=== PATIENT | male | born 1990 | race Caucasian/White ===

== ENCOUNTER 2016-12-01 17:19 | Emergency (ER) | payer SELFPAY ==
[~2016-12-01] VITALS: Ht 165.1 cm; Wt 72.6 kg
[~2016-12-01 17:19] MED LIST: ALPR1TAB2 PO; CIPR500T78 PO; FAMO20TA3 PO; HYDR-3812 PO; HYOS0.1217 SL; IBUP-2055 PO; OMEP20CA12 PO; OMEP20TA2 PO; ONDA4TAB8 PO; ONDA4TAB8 SL; RT-ALBUINH IH; SCR1T PO; SUCR1ORA5 PO
[2016-12-01 18:06] LABS: BASOPHILS # (AUTO) 0.1 10^3/uL (0.0-0.1); BASOPHILS % (AUTO) 1 % (0-10); EOSINOPHILS # (AUTO) 0.1 10^3/uL (0.0-0.3); EOSINOPHILS % (AUTO) 1 % (0-10); LYMPHOCYTES % (AUTO) 39 % (12-44); MEAN CORPUSCULAR HEMOGLOBIN 32 PG (25-34); MEAN CORPUSCULAR HGB CONC 36 G/DL (32-36); MEAN CORPUSCULAR VOLUME 88 FL (80-99); MEAN PLATELET VOLUME 10.1 FL (7.4-10.4); MONOCYTES # (AUTO) 0.5 X 10^3 (0.0-1.0); MONOCYTES % (AUTO) 6 % (0-12); NEUTROPHILS # (AUTO) 4.2 X 10^3 (1.8-7.8); NEUTROPHILS % (AUTO) 53 % (42-75); PLATELET COUNT 242 10^3/uL (130-400); RED BLOOD COUNT 5.38 10^6/uL (4.35-5.85); RED CELL DISTRIBUTION WIDTH 12.4 % (10.0-14.5); WHITE BLOOD COUNT 7.9 10^3/uL (4.3-11.0)
--- NOTE | 2016-12-01 18:18 | ED General ---
General Chief Complaint: Chest Wall/Rib Pain Stated Complaint: CHEST PAIN,SOA Source of Information: Patient Exam Limitations: No Limitations History of Present Illness Time Seen by Provider: 18:16 Initial Comments To ER with chest pain that radiated to left arm and was associated with shortness of breath and anxiety. This began this morning about 9 a.m. and lasted for 2 or 3 hours before resolving. At this time he is pain-free and does not have any shortness of breath or any symptoms at all. He's had this quite frequently in the past but has never had it looked at. He states that his brother has similar symptoms. Normally he can get these to go away by holding his breath and then breathing very slowly. Timing/Duration: Intermittent Severity: Moderate Associated Systoms: Chest Pain, No Cough Allergies and Home Medications Allergies Coded Allergies: cefpodoxime (Verified Allergy, Unknown, 10/11/14) Told allergic when he was a child. Reaction unknown. codeine (Verified Allergy, Unknown, NAUSEA/VOMITING, 09/28/15) Home Medications Albuterol Sulfate 8.5 Gm Hfa.aer.ad, 1-2 PUFF IH Q4H PRN for SHORTNESS OF BREATH , (Reported) Alprazolam 1 Mg Tablet, 0.5-1 MG PO BID PRN for ANXIETY, (Reported) Hydrocodone/Acetaminophen 1 Each Tablet, 1 TAB PO Q4H PRN for PAIN, #60 Prescribed by: OSWALDO SANTILLAN on 06/03/16 1110 Omeprazole 20 Mg Capsule.dr, 20 MG PO DAILY, (Reported) Ondansetron 4 Mg Tab.rapdis, 4 MG PO Q4H PRN for NAUSEA/VOMITING, (Reported) Constitutional: see HPI EENTM: see HPI Respiratory: see HPI, cough Cardiovascular: no symptoms reported Genitourinary: no symptoms reported Musculoskeletal: no symptoms reported Skin: no symptoms reported Psychiatric/Neurological: No Symptoms Reported Hematologic/Lymphatic: No Symptoms Reported Past Hbelbce-Bqwfvn-Lhrfpu Hx Patient Social History Type Used: Cigarettes Recent Foreign Travel: No Contact w/Someone Who Travel: No Recent Hopitalizations: No (ER visit yesterday (05-31-16)) Immunizations Up To Date Tetanus Booster (TDap): Unknown Seasonal Allergies Seasonal Allergies: No Surgeries HX Surgeries: No Respiratory Hx Respiratory Disorders: No Cardiovascular Hx Cardiac Disorders: No Neurological Hx Neurological Disorders: No Reproductive System Hx Reproductive Disorders: No Sexually Transmitted Disease: No HIV/AIDS: No Genitourinary Hx Genitourinary Disorders: No Gastrointestinal Hx Gastrointestinal Disorders: Yes Gastrointestinal Disorders: Pancreatitis Musculoskeletal Hx Musculoskeletal Disorders: No Endocrine Hx Endocrine Disorders: No HEENT HX ENT Disorders: No Cancer Hx Cancer: No Psychosocial Hx Psychiatric Problems: Yes Behavioral Health Disorders: Anxiety Integumentary HX Skin/Integumentary Disorder: No Blood Transfusions Hx Blood Disorders: No Adverse Reaction to a Blood Tr: No Family Medical History Significant Family History: No Pertinent Family Hx Family Medial History: Patient reports no known family medical history. Physical Exam Vital Signs Vital Sign - Last 12Hours 12/01/16 17:25 Temp 99.7 Pulse 100 B/P (MAP) 159/115 O2 Delivery Room Air Capillary Refill : General Appearance: No Apparent Distress, WD/WN Eyes: Bilateral Eye EOMI, Bilateral Eye Normal Inspection, Bilateral Eye PERRL HEENT: PERRL/EOMI, TMs Normal Neck: Full Range of Motion, Normal Inspection Respiratory: Normal Breath Sounds, No Accessory Muscle Use, No Respiratory Distress Cardiovascular: Regular Rate, Rhythm, Normal Peripheral Pulses Extremity: Normal Capillary Refill, Normal Inspection Neurologic/Psychiatric: Alert, Oriented x3, No Motor/Sensory Deficits Skin: Normal Color, Warm/Dry Progress/Results/Core Measures Results/Orders Lab Results Laboratory Tests Test 12/01/16 17:50 Range/Units White Blood Count 7.9 4.3-11.0 10^3/uL Red Blood Count 5.38 4.35-5.85 10^6/uL Hemoglobin 17.2 13.3-17.7 G/DL Hematocrit 47 40-54 % Mean Corpuscular Volume 88 80-99 FL Mean Corpuscular Hemoglobin 32 25-34 PG Mean Corpuscular Hemoglobin Concent 36 32-36 G/DL Red Cell Distribution Width 12.4 10.0-14.5 % Platelet Count 242 130-400 10^3/uL Mean Platelet Volume 10.1 7.4-10.4 FL Neutrophils (%) (Auto) 53 42-75 % Lymphocytes (%) (Auto) 39 12-44 % Monocytes (%) (Auto) 6 0-12 % Eosinophils (%) (Auto) 1 0-10 % Basophils (%) (Auto) 1 0-10 % Neutrophils # (Auto) 4.2 1.8-7.8 X 10^3 Lymphocytes # (Auto) 3.0 1.0-4.0 X 10^3 Monocytes # (Auto) 0.5 0.0-1.0 X 10^3 Eosinophils # (Auto) 0.1 0.0-0.3 10^3/uL Basophils # (Auto) 0.1 0.0-0.1 10^3/uL Sodium Level 141 135-145 MMOL/L Potassium Level 4.1 3.6-5.0 MMOL/L Chloride Level 105 98-107 MMOL/L Carbon Dioxide Level 26 21-32 MMOL/L Anion Gap 10 5-14 MMOL/L Blood Urea Nitrogen 9 7-18 MG/DL Creatinine 0.92 0.60-1.30 MG/DL Estimat Glomerular Filtration Rate > 60 BUN/Creatinine Ratio 10 Glucose Level 110 H 70-105 MG/DL Calcium Level 9.8 8.5-10.1 MG/DL Total Bilirubin 0.8 0.1-1.0 MG/DL Aspartate Amino Transf (AST/SGOT) 28 5-34 U/L Alanine Aminotransferase (ALT/SGPT) 35 0-55 U/L Alkaline Phosphatase 102 40-136 U/L Total Protein 6.9 6.4-8.2 G/DL Albumin 4.5 3.2-4.5 G/DL Lipase 13 8-78 U/L My Orders Orders - AUDREY POTTER APRN Cbc With Automated Diff (12/01/16 17:36) Comprehensive Metabolic Panel (12/01/16 17:36) Lipase (12/01/16 17:36) Ua Culture If Indicated (12/01/16 17:36) Ekg Tracing (12/01/16 18:07) Chest Pa/Lat (2 View) (12/01/16 18:28) Vital Signs/I&O Vital Sign - Last 12Hours 12/01/16 17:25 Temp 99.7 Pulse 100 B/P (MAP) 159/115 O2 Delivery Room Air Departure Communication Progress Notes 1817-I did discuss with patient and girlfriend the possibility of this being anxiety versus an arrhythmia such as PSVT. Impression Impression: Primary Impression: Chest pain Departure-Patient Inst. Decision time for Depature: 18:48 Referrals: NO,LOCAL PHYSICIAN (PCP/Family) Primary Care Physician Patient Instructions: NO INSTRUCTIONS GIVEN Add. Discharge Instructions: All discharge instructions reviewed with patient and/or family. Voiced understanding. 1. As mentioned your chest pain and palpitations could be brought on by a number of things such as anxiety or an arrhythmia such as SVT. With this in mind you should establish care with one of the physicians listed to discuss wearing a Holter monitor to record your heart rhythm for a period of time. Return to ER for any concerns Work/School Note: Local Medical Staff Listing AUDREY POTTER APRN December 01, 2016 18:18
[2016-12-01 18:24] LABS: ALANINE AMINOTRANSFERASE 35 U/L (0-55); ALBUMIN 4.5 G/DL (3.2-4.5); ANION GAP 10 MMOL/L (5-14); ASPARTATE AMINO TRANSFERASE 28 U/L (5-34); BILIRUBIN,TOTAL 0.8 MG/DL (0.1-1.0); BLOOD UREA NITROGEN 9 MG/DL (7-18); BUN/CREATININE RATIO 10; CALCIUM 9.8 MG/DL (8.5-10.1); CARBON DIOXIDE 26 MMOL/L (21-32); CHLORIDE 105 MMOL/L (98-107); CREATININE SERUM 0.92 MG/DL (0.60-1.30); GFR ESTIMATED > 60; GLUCOSE 110 MG/DL (70-105); LIPASE 13 U/L (8-78); POTASSIUM 4.1 MMOL/L (3.6-5.0); SODIUM 141 MMOL/L (135-145); TOTAL PROTEIN 6.9 G/DL (6.4-8.2)
--- NOTE | 2016-12-01 18:41 | Diagnostic Imaging Report ---
INDICATION: Chest pain with radiation to left shoulder.. TECHNIQUE: Two view chest 6:48 PM CORRELATION STUDY: None FINDINGS: The heart size, mediastinal configuration and pulmonary vasculature are within normal limits. The lungs are clear with no consolidating infiltrate. There is no significant pleural effusion or pneumothorax. Visualized osseous structures are unremarkable. IMPRESSION: 1. Negative two-view chest. Dictated by: Dictated on workstation # [id number]
[2016-12-01 19:02] VITALS: BP 117/84
== END 2016-12-01 19:02 | disposition home or self-care (01) ==
LOC: EDUNIT# 17:19 → ER 17:21
DX: R07.9 Chest pain, unspecified (principal); F41.9 Anxiety disorder, unspecified; Z79.899 Other long term (current) drug therapy
CPT/HCPCS: 36415; 71020; 80053; 83690; 85025; 93005

== ENCOUNTER 2017-06-19 17:48 | Emergency (ER) | payer OTHER ==
[~2017-06-19] VITALS: Ht 165.1 cm; Wt 77.1 kg
[2017-06-19] MEDS ORDERED: NS IV 1000 ML 1,000 ML IV ONE (18:16)
[2017-06-19] MEDS ORDERED: FAMOTIDINE 20MG/2ML IV (PEPCID) IV STA (18:25)
[2017-06-19] MEDS ORDERED: PANTOPRAZOLE 40 MG/10 ML (PROTONIX) VIAL IV ONE (18:30)
[2017-06-19] MEDS ORDERED: cloNIDine 0.1 MG (CATAPRES) TAB PO ONE (18:30)
[2017-06-19 18:35] LABS: BASOPHILS % (AUTO) 0 % (0-10); EOSINOPHILS # (AUTO) 0.1 10^3/uL (0.0-0.3); EOSINOPHILS % (AUTO) 1 % (0-10); LYMPHOCYTES # (AUTO) 3.3 X 10^3 (1.0-4.0); LYMPHOCYTES % (AUTO) 26 % (12-44); MEAN CORPUSCULAR HEMOGLOBIN 31 PG (25-34); MEAN CORPUSCULAR HGB CONC 36 G/DL (32-36); MEAN CORPUSCULAR VOLUME 86 FL (80-99); MEAN PLATELET VOLUME 10.2 FL (7.4-10.4); MONOCYTES # (AUTO) 0.9 X 10^3 (0.0-1.0); MONOCYTES % (AUTO) 7 % (0-12); NEUTROPHILS # (AUTO) 8.6 X 10^3 (1.8-7.8); NEUTROPHILS % (AUTO) 66 % (42-75); PLATELET COUNT 237 10^3/uL (130-400); RED CELL DISTRIBUTION WIDTH 12.7 % (10.0-14.5)
--- NOTE | 2017-06-19 18:36 | ED GI ---
General Chief Complaint: Abdominal/GI Problems Stated Complaint: ABD PAIN Nursing Triage Note: ARRIVED VIA AMB TO ROOM 08 WITH COMPLAINTS OF LEFT ABD PAIN THAT RADIATES INTO BACK. STATES HE THINKS IT IS HIS PANCREAS. STATES HE HAS NOT DRANK ETOH IN 6 MONTHS. Sepsis Screen: No Definite Risk Source of Information: Patient Exam Limitations: No Limitations History of Present Illness Time Seen By Provider: 18:10 Initial Comments Here with complaint of left upper quadrant abdominal pain that is radiating to the back. This is been going on for the past one to 2 days. Has had nausea and vomiting today. Has history of chronic pancreatitis which is usually treated with prescription medications including hydrocodone and omeprazole. His doctor is no longer seeing patients and patient ran out of his hydrocodone 4 days ago. He did try Tylenol today as well as Zofran. The Zofran is helping somewhat with the nausea and vomiting but pain is worsening. He states that he has not drank alcohol for 6 months. Denies diarrhea. Timing/Duration: 1-2 Days Severity/Quality: Moderate, Cramping Location: LUQ, Epigastric Radiation: Back Activities at Onset: None Modifying Factors: Worsens With Eating, Worsens With Movement Associated Symptoms: No Chest Pain, No Fever/Chills, Heartburn, No Nausea/ Vomiting, No Shortness of Air, No Weakness Allergies and Home Medications Allergies Coded Allergies: cefpodoxime (Verified Allergy, Unknown, 10/11/14) Told allergic when he was a child. Reaction unknown. codeine (Verified Allergy, Unknown, NAUSEA/VOMITING, 09/28/15) Home Medications Albuterol Sulfate 8.5 Gm Hfa.aer.ad, 1-2 PUFF IH Q4H PRN for SHORTNESS OF BREATH , (Reported) Alprazolam 1 Mg Tablet, 0.5-1 MG PO BID PRN for ANXIETY, (Reported) Hydrocodone/Acetaminophen 1 Each Tablet, 1 TAB PO Q4H PRN for PAIN, #60 Prescribed by: OSWALDO SANTILLAN on 06/03/16 1110 Omeprazole 20 Mg Capsule.dr, 20 MG PO DAILY, (Reported) Ondansetron 4 Mg Tab.rapdis, 4 MG PO Q4H PRN for NAUSEA/VOMITING, (Reported) Review of Systems Constitutional: see HPI, No chills, No fever EENTM: No Symptoms Reported Respiratory: No Symptoms Reported Cardiovascular: No Symptoms Reported Gastrointestinal: See HPI, Abdominal Pain, Denies Diarrhea, Nausea, Vomiting Genitourinary: No Symptoms Reported Musculoskeletal: back pain, No muscle pain Skin: no symptoms reported Psychiatric/Neurological: No Symptoms Reported, Denies Headache, Denies Weakness Endocrine: No Symptoms Reported All Other Systems Reviewed Negative Unless Noted: Yes Past Nkznxdr-Rkvfcd-Lygmvl Hx Patient Social History Alcohol Use: Past History Alcohol Beverage of Choice: Beer Smoking Status: Current Everyday Smoker Type Used: Cigarettes, Smokeless Tobacco Recent Foreign Travel: No Contact w/Someone Who Travel: No Recent Infectious Disease Expo: No Recent Hopitalizations: No Immunizations Up To Date Tetanus Booster (TDap): Unknown Seasonal Allergies Seasonal Allergies: No Surgeries History of Surgeries: No Respiratory History of Respiratory Disorde: No Cardiovascular History of Cardiac Disorders: No Neurological History of Neurological Disord: No Reproductive System Hx Reproductive Disorders: No Sexually Transmitted Disease: No HIV/AIDS: No Genitourinary History of Genitourinary Disor: No Gastrointestinal History of Gastrointestinal Di: Yes Gastrointestinal Disorders: Pancreatitis Musculoskeletal History of Musculoskeletal Dis: No Endocrine History of Endocrine Disorders: No HEENT History of HEENT Disorders: No Cancer History of Cancer: No Did You Recieve Any Treatments: No Psychosocial History of Psychiatric Problem: Yes Behavioral Health Disorders: Anxiety Integumentary History of Skin or Integumenta: No Blood Transfusions History of Blood Disorders: No Adverse Reaction to a Blood Tr: No Reviewed Nursing Assessment Reviewed/Agree w Nursing PMH: Yes Family Medical History Significant Family History: No Pertinent Family Hx Family Medial History: Patient reports no known family medical history. Physical Exam Vital Signs VS - Last 72 Hours, by Label 06/19/17 17:55 Temp 98.0 Pulse 96 Resp 18 B/P (MAP) 162/105 Pulse Ox 98 Capillary Refill : Less Than 3 Seconds General Appearance: WD/WN, no apparent distress HEENT: PERRL/EOMI, pharyngeal erythema Neck: full range of motion, supple Respiratory: lungs clear, normal breath sounds Cardiovascular: regular rate, rhythm, no murmur Gastrointestinal: soft, No guarding, No rebound, tenderness (LUQ and epigastric ) Extremities: non-tender, normal inspection Back: normal inspection, no CVA tenderness, no vertebral tenderness Neurologic/Psychiatric: alert, oriented x 3 Skin: normal color, warm/dry Progress/Results/Core Measures Results/Orders Lab Results Laboratory Tests Test 06/19/17 18:25 06/19/17 20:15 Range/Units White Blood Count 13.0 H 4.3-11.0 10^3/uL Red Blood Count 5.40 4.35-5.85 10^6/uL Hemoglobin 16.8 13.3-17.7 G/DL Hematocrit 46 40-54 % Mean Corpuscular Volume 86 80-99 FL Mean Corpuscular Hemoglobin 31 25-34 PG Mean Corpuscular Hemoglobin Concent 36 32-36 G/DL Red Cell Distribution Width 12.7 10.0-14.5 % Platelet Count 237 130-400 10^3/uL Mean Platelet Volume 10.2 7.4-10.4 FL Neutrophils (%) (Auto) 66 42-75 % Lymphocytes (%) (Auto) 26 12-44 % Monocytes (%) (Auto) 7 0-12 % Eosinophils (%) (Auto) 1 0-10 % Basophils (%) (Auto) 0 0-10 % Neutrophils # (Auto) 8.6 H 1.8-7.8 X 10^3 Lymphocytes # (Auto) 3.3 1.0-4.0 X 10^3 Monocytes # (Auto) 0.9 0.0-1.0 X 10^3 Eosinophils # (Auto) 0.1 0.0-0.3 10^3/uL Basophils # (Auto) 0.0 0.0-0.1 10^3/uL Sodium Level 141 135-145 MMOL/L Potassium Level 3.3 L 3.6-5.0 MMOL/L Chloride Level 104 98-107 MMOL/L Carbon Dioxide Level 23 21-32 MMOL/L Anion Gap 14 5-14 MMOL/L Blood Urea Nitrogen 10 7-18 MG/DL Creatinine 1.02 0.60-1.30 MG/DL Estimat Glomerular Filtration Rate > 60 BUN/Creatinine Ratio 10 Glucose Level 104 70-105 MG/DL Calcium Level 9.4 8.5-10.1 MG/DL Total Bilirubin 1.0 0.1-1.0 MG/DL Aspartate Amino Transf (AST/SGOT) 27 5-34 U/L Alanine Aminotransferase (ALT/SGPT) 51 0-55 U/L Alkaline Phosphatase 115 40-136 U/L Total Protein 7.0 6.4-8.2 GM/DL Albumin 4.3 3.2-4.5 GM/DL Amylase Level 74 25-125 U/L Lipase 220 H 8-78 U/L Serum Alcohol < 10 <10 MG/DL Urine Opiates Screen NEGATIVE NEGATIVE Urine Oxycodone Screen NEGATIVE NEGATIVE Urine Methadone Screen NEGATIVE NEGATIVE Urine Propoxyphene Screen NEGATIVE NEGATIVE Urine Barbiturates Screen NEGATIVE NEGATIVE Ur Tricyclic Antidepressants Screen NEGATIVE NEGATIVE Urine Phencyclidine Screen NEGATIVE NEGATIVE Urine Amphetamines Screen NEGATIVE NEGATIVE Urine Methamphetamines Screen NEGATIVE NEGATIVE Urine Benzodiazepines Screen POSITIVE H NEGATIVE Urine Cocaine Screen NEGATIVE NEGATIVE Urine Cannabinoids Screen NEGATIVE NEGATIVE My Orders Orders - SANTIAGO CHARLES MD Clonidine Tablet (Catapres Tablet) (06/19/17 18:30) Famotidine Injection (Pepcid Injection) (06/19/17 18:25) Pantoprazole Injection (Protonix Injecti (06/19/17 18:30) Ct Abdomen/Pelvis W (06/19/17 19:06) Iohexol Injection (Omnipaque 350 Mg/Ml 1 (06/19/17 19:15) Ns (Ivpb) (Sodium Chloride 0.9% Ivpb Bag (06/19/17 19:15) Alcohol (06/19/17 19:44) Drug Screen Stat (Urine) (06/19/17 19:44) Ketorolac Injection (Toradol Injection) (06/19/17 20:15) Morphine Injection (Morphine Injection (06/19/17 20:15) Rx-Hydrocodone/Apap 5-325 Mg (Rx-Vicodin (06/19/17 21:15) Medications Given in ED Current Medications Medications Dose Ordered Sig/Imer Route Start Time Stop Time Status Last Admin Dose Admin Clonidine HCl 0.1 mg ONCE ONCE PO 06/19/17 18:30 06/19/17 18:31 DC 06/19/17 18:32 0.1 MG Iohexol 100 ml ONCE ONCE IV 06/19/17 19:15 06/19/17 19:16 DC 06/19/17 19:20 100 ML Pantoprazole 40 mg ONCE ONCE IV 06/19/17 18:30 06/19/17 18:31 DC 06/19/17 18:33 40 MG Sodium Chloride 100 ml ONCE ONCE IV 06/19/17 19:15 06/19/17 19:16 DC 06/19/17 19:20 100 ML Sodium Chloride 1,000 ml @ 0 mls/hr Q0M ONCE IV 06/19/17 18:16 06/19/17 18:19 DC 06/19/17 18:33 1,000 MLS/HR Vital Signs/I&O Vital Sign - Last 12Hours 06/19/17 17:55 Temp 98.0 Pulse 96 Resp 18 B/P (MAP) 162/105 Pulse Ox 98 Intake and Output 06/20/17 00:00 Intake Total 1000 ml Balance 1000 ml Blood Pressure Mean: 124 Progress Note : Progress Note Seen and evaluated. IV, Labs, NS 1 LT bolus, pepcid 20 mg IV, Protonix 40 MG IV , clonidine .01 mg PO. Monitor patient. 1904: Lipase is elevated. We will get CT abdomen pelvis. Monitor patient. 1939: I did discuss the case with Dr. Fabricio Zavala. Patient has findings of pancreatitis with mild acute flare currently. He is scheduled to follow-up in the [facility] in a few weeks although will need follow-up earlier given his current findings. He has been chronically on narcotics switches not in the patient's best interest. He is currently out of narcotic. I did discuss this with Dr. Zavala they will see him in the pain management clinic next Monday. They will call him for appointment time. We will give a small amount of narcotic currently and have him follow-up. Drug screen added. Morphine 5 mg IV and Toradol 30 mg IV ordered. Patient has a ride. 2109: Improved. Discharged home with return precautions. Patient verbalize understanding of instructions and agreement with plan. Diagnostic Imaging Diagonstic Imaging: CT Plain Films/CT/US/NM/MRI: abdomen, pelvis Comments VIA [facility], [facility]. [place], [place] NAME: CHANDNI BAGLEY [facility] REC#: [id number] PT STATUS: REG ER : 1990 PHYSICIAN: SANTIAGO CHARLES MD ADMIT DATE: 06/19/17/ER Draft Date of Exam:06/19/17 CT ABDOMEN/PELVIS W PROCEDURE: CT abdomen and pelvis with contrast. TECHNIQUE: Multiple contiguous axial images were obtained through the abdomen and pelvis after administration of intravenous contrast. INDICATION: Upper abdominal pain with nausea and vomiting for one day. FINDINGS: There are mild fatty changes of the liver. The gallbladder and bile ducts are normal. Spleen is normal. There is some mild edema around the tail of the pancreas, which could be due to the earlier localized pancreatitis. The adrenals and kidneys are normal. The bladder is normal. No acute bowel abnormality is seen. There is no free intraperitoneal air or fluid. There is no bony abnormality. IMPRESSION: There are changes of mild pancreatitis involving the tail of the pancreas. This is less severe when compared to the CT from 06/01/2016. There is no other significant change from the prior exam. Dictated on workstation # [id number] Dict: 06/19/171929 Trans: 06/19/171933 [id number] Interpreted by: REGINA JON MD Electronically signed by: Departure Impression Impression: Primary Impression: Acute pancreatitis Qualified Codes: K85.90 - Acute pancreatitis without necrosis or infection, unspecified Disposition: HOME, SELF-CARE Condition: Stable Departure-Patient Inst. Referrals: NO,LOCAL PHYSICIAN (PCP/Family) Primary Care Physician Patient Instructions: Pancreatitis (DC) Add. Discharge Instructions: All discharge instructions reviewed with patient and/or family. Voiced understanding. Take medications as directed. Call the clinic and morning for appointment with Dr. Zavala next Monday. Return for worse pain, fever, vomiting, weakness, breathing problems or other concerns as needed. You were given a limited prescription for pain medicines and you should use these judiciously as needed. If you're not taking the prescribed pain medicine, you may take Tylenol 1000 mg every 8 hours as needed for pain but do not take both of them as they both have Tylenol (acetaminophen) in them. You may take [id number]-[id number] omeprazole 20 mg daily and or Pepcid or other generic famotidine 20 mg daily as well. Clear liquid diet for the next 24-48 hours and then advance as tolerated. You should eat light as this will help settle your symptoms. Heavy or spicy meals will make things worse. Scripts Hydrocodone/Acetaminophen (Hydrocodon -Acetaminophen 5-325) 1 Each Tablet 1 EACH PO Q6H Y for PAIN-MODERATE, #10 TAB 0 Refills Prov: SANTIAGO CHARLES MD 06/19/17 Copy Copies To 1: FABRICIO ZAVALA MD, TIMOTHY D MD Jun 19, 2017 18:36
[2017-06-19 18:54] LABS: ALANINE AMINOTRANSFERASE 51 U/L (0-55); ALBUMIN 4.3 GM/DL (3.2-4.5); AMYLASE 74 U/L (25-125); ANION GAP 14 MMOL/L (5-14); ASPARTATE AMINO TRANSFERASE 27 U/L (5-34); BLOOD UREA NITROGEN 10 MG/DL (7-18); BUN/CREATININE RATIO 10; CALCIUM 9.4 MG/DL (8.5-10.1); CARBON DIOXIDE 23 MMOL/L (21-32); CHLORIDE 104 MMOL/L (98-107); CREATININE SERUM 1.02 MG/DL (0.60-1.30); GFR ESTIMATED > 60; GLUCOSE 104 MG/DL (70-105); LIPASE 220 U/L (8-78); POTASSIUM 3.3 MMOL/L (3.6-5.0); SODIUM 141 MMOL/L (135-145)
[2017-06-19] MEDS ORDERED: NS 100 ML (IVPB) BAG IV ONE (19:15)
[2017-06-19] MEDS ORDERED: IOHEXOL 350 MG/ML 100 ML (OMNIPAQUE 350) VIAL IV ONE (19:15)
--- NOTE | 2017-06-19 19:35 | Diagnostic Imaging Report ---
PROCEDURE: CT abdomen and pelvis with contrast. TECHNIQUE: Multiple contiguous axial images were obtained through the abdomen and pelvis after administration of intravenous contrast. INDICATION: Upper abdominal pain with nausea and vomiting for one day. FINDINGS: There are mild fatty changes of the liver. The gallbladder and bile ducts are normal. Spleen is normal. There is some mild edema around the tail of the pancreas, which could be due to the earlier localized pancreatitis. The adrenals and kidneys are normal. The bladder is normal. No acute bowel abnormality is seen. There is no free intraperitoneal air or fluid. There is no bony abnormality. IMPRESSION: There are changes of mild pancreatitis involving the tail of the pancreas. This is less severe when compared to the CT from 06/01/2016. There is no other significant change from the prior exam. Dictated by: Dictated on workstation # [id number]
[2017-06-19] MEDS ORDERED: morphine INJ 10 MG/ML 1ML (SYR OR VIAL) IVP STA ×2 (20:15→21:24)
[2017-06-19] MEDS ORDERED: KETOROLAC 30 MG/ML VIAL IVP STA (20:15)
[2017-06-19] MEDS ORDERED: HYDR-3812 PO (21:16)
[2017-06-19] MEDS ORDERED: ONDANSETRON 4 MG/2 ML (SDV) Z0FRAN ONE (21:17)
[2017-06-19] MEDS: RX-HYDROCODONE/APAP 5/325 MG #4 TAB PK PO PRN ×2 (21:20→21:30)
[2017-06-19] MEDS ORDERED: ONDANSETRON 4 MG/2 ML (SDV) Z0FRAN IVP ONE (21:30)
[2017-06-19 21:35] VITALS: BP 138/89
[2017-06-20] MEDS ORDERED: HYDR-3812 PO (12:26)
[2017-06-20] MEDS ORDERED: OMEP40CA36 PO (12:26)
[2017-06-20] MEDS ORDERED: MULT-851 PO (12:31)
[2017-06-20] MEDS ORDERED: ACET-2267 PO (12:31)
== END 2017-06-19 21:35 | disposition home or self-care (01) ==
LOC: EDUNIT# 17:48 → ER 17:49
DX: K85.90 Acute pancreatitis without necrosis or infection, unspecified (principal); F41.9 Anxiety disorder, unspecified; F17.210 Nicotine dependence, cigarettes, uncomplicated
CPT/HCPCS: 36415; 74177; 80053; 80306; 80320; 82150; 83690; 85025; 96361; 96374; 96375; 96376; 99283

== ENCOUNTER 2017-06-20 09:01 | Inpatient (IN) | payer OTHER ==
[~2017-06-20] VITALS: Ht 165.1 cm; Wt 79.0 kg
[2017-06-20] MEDS ORDERED: NS IV 1000 ML 1,000 ML IV ONE ×2 (09:25→09:40)
[2017-06-20 09:32] LABS: BASOPHILS % (AUTO) 0 % (0-10); EOSINOPHILS % (AUTO) 0 % (0-10); LYMPHOCYTES # (AUTO) 0.9 X 10^3 (1.0-4.0); LYMPHOCYTES % (AUTO) 7 % (12-44); MEAN CORPUSCULAR HEMOGLOBIN 32 PG (25-34); MEAN CORPUSCULAR HGB CONC 37 G/DL (32-36); MEAN CORPUSCULAR VOLUME 85 FL (80-99); MEAN PLATELET VOLUME 10.2 FL (7.4-10.4); MONOCYTES # (AUTO) 0.6 X 10^3 (0.0-1.0); MONOCYTES % (AUTO) 5 % (0-12); NEUTROPHILS # (AUTO) 11.2 X 10^3 (1.8-7.8); NEUTROPHILS % (AUTO) 88 % (42-75); PLATELET COUNT 238 10^3/uL (130-400); RED BLOOD COUNT 5.29 10^6/uL (4.35-5.85); RED CELL DISTRIBUTION WIDTH 12.5 % (10.0-14.5); WHITE BLOOD COUNT 12.7 10^3/uL (4.3-11.0)
[2017-06-20] MEDS ORDERED: ONDANSETRON 4 MG/2 ML (SDV) Z0FRAN ONE (09:32)
[2017-06-20] MEDS ORDERED: FAMOTIDINE 20MG/2ML IV (PEPCID) IVP ONE (09:45)
[2017-06-20] MEDS ORDERED: ONDANSETRON 4 MG/2 ML (SDV) Z0FRAN IVP ONE (09:45)
[2017-06-20] MEDS ORDERED: fentaNYL INJECTION 100 MCG/2 ML AMP IVP ONE (09:45)
[2017-06-20 09:54] LABS: ALANINE AMINOTRANSFERASE 43 U/L (0-55); ALBUMIN 4.1 GM/DL (3.2-4.5); ALCOHOL < 10 MG/DL (<10); AMYLASE 452 U/L (25-125); ANION GAP 12 MMOL/L (5-14); ASPARTATE AMINO TRANSFERASE 20 U/L (5-34); BILIRUBIN,TOTAL 1.5 MG/DL (0.1-1.0); BLOOD UREA NITROGEN 11 MG/DL (7-18); BUN/CREATININE RATIO 13; CALCIUM 9.3 MG/DL (8.5-10.1); CARBON DIOXIDE 22 MMOL/L (21-32); CHLORIDE 105 MMOL/L (98-107); CREATININE SERUM 0.86 MG/DL (0.60-1.30); GFR ESTIMATED > 60; GLUCOSE 135 MG/DL (70-105); LIPASE 1056 U/L (8-78); POTASSIUM 3.8 MMOL/L (3.6-5.0); SODIUM 139 MMOL/L (135-145); TOTAL PROTEIN 6.8 GM/DL (6.4-8.2)
[2017-06-20 10:12] LABS: BAND NEUTROPHILS 2 %; EOSINOPHILS % (MANUAL) 0 %; LYMPHOCYTES % (MANUAL) 5 %; NEUTROPHILS % (MANUAL) 90 %
[2017-06-20] MEDS ORDERED: KETOROLAC 30 MG/ML VIAL IVP ONE (10:30)
--- NOTE | 2017-06-20 10:33 | ED Abdominal Pain ---
General Chief Complaint: Abdominal/GI Problems Stated Complaint: PAIN IN ABD WORSENING Nursing Triage Note: PT AMBULATES TO ROOM 4 PT CO OF ABD PAIN WORSES TODAY WAS SEEN LAST PM IN ED. PT STATES HAS BEEN IN SEVERE PAIN SINCE 0300 THIS AM, AND HAS TAKEN HIS ZOFRAN AND HYDROCODONE BUT PAIN KEEPS GETTING WORSE Sepsis Screen: No Definite Risk Source of Information: Patient, Old Records Exam Limitations: No Limitations History of Present Illness Time Seen By Provider: 09:25 Initial Comments This 27-year-old young man presents to the emergency room with left upper quadrant and epigastric pain. He was seen in the emergency room yesterday for mild pancreatitis. He has a history of recurrent pancreatitis. He had labs and a CT performed yesterday. He was ultimately dismissed home. He was feeling better at the time of dismissal but the pain woke him up in the night area and he then developed severe pain with accompanying nausea and vomiting. Allergies and Home Medications Allergies Coded Allergies: cefpodoxime (Verified Allergy, Unknown, 10/11/14) Told allergic when he was a child. Reaction unknown. codeine (Verified Adverse Reaction, Mild, NAUSEA/VOMITING, 06/21/17) Home Medications Acetaminophen 500 Mg Tablet, 500-1,000 MG PO Q6H PRN for PAIN-MILD, (Reported) Alprazolam 1 Mg Tablet, 1 MG PO BID PRN for ANXIETY, (Reported) Multivits-Minerals/FA/Lycopene 1 Each Tablet, 1 TAB PO DAILY, (Reported) Omeprazole 40 Mg Capsule.dr, 40 MG PO DAILY, (Reported) Ondansetron 4 Mg Tab.rapdis, 4 MG PO Q6H PRN for NAUSEA/VOMITING-1ST LINE, ( Reported) Review of Systems Constitutional: no symptoms reported EENTM: No Symptoms Reported Respiratory: No Symptoms Reported Cardiovascular: No Symptoms Reported Gastrointestinal: See HPI Genitourinary: No Symptoms Reported Musculoskeletal: no symptoms reported Skin: no symptoms reported Psychiatric/Neurological: No Symptoms Reported Endocrine: No Symptoms Reported Past Urumhzh-Kwgegz-Brxazj Hx Patient Social History Alcohol Use: Past History Number of Drinks Today: 0 Alcohol Beverage of Choice: Beer Recreational Drug Use: No Smoking Status: Current Someday Smoker Type Used: Cigarettes, Smokeless Tobacco Recent Foreign Travel: No Contact w/Someone Who Travel: No Recent Infectious Disease Expo: No Recent Hopitalizations: No Physical Abuse: No Sexual Abuse: No Immunizations Up To Date Tetanus Booster (TDap): Unknown Seasonal Allergies Seasonal Allergies: No Surgeries History of Surgeries: No Respiratory History of Respiratory Disorde: No Cardiovascular History of Cardiac Disorders: No Neurological History of Neurological Disord: No Reproductive System Hx Reproductive Disorders: No Sexually Transmitted Disease: No HIV/AIDS: No Genitourinary History of Genitourinary Disor: No Gastrointestinal History of Gastrointestinal Di: Yes Gastrointestinal Disorders: Pancreatitis Musculoskeletal History of Musculoskeletal Dis: No Endocrine History of Endocrine Disorders: No HEENT History of HEENT Disorders: No Cancer History of Cancer: No Did You Recieve Any Treatments: No Psychosocial History of Psychiatric Problem: Yes Behavioral Health Disorders: Anxiety Suicide Risk Score: 0 Integumentary History of Skin or Integumenta: No Blood Transfusions History of Blood Disorders: No Adverse Reaction to a Blood Tr: No Family Medical History Significant Family History: No Pertinent Family Hx Family Medial History: Patient reports no known family medical history. Physical Exam Vital Signs VS - Last 72 Hours, by Label 06/20/17 09:15 Temp 97.2 Pulse 67 Resp 18 B/P (MAP) 142/96 Pulse Ox 98 Capillary Refill : Less Than 3 Seconds General Appearance: WD/WN, no apparent distress HEENT: normal ENT inspection, pharynx normal Neck: normal inspection Respiratory: lungs clear, normal breath sounds, no respiratory distress, no accessory muscle use Cardiovascular: regular rate, rhythm, no edema, no murmur Gastrointestinal: normal bowel sounds, soft, tenderness (moderate to severe in the epigastrium and left upper quadrant) Extremities: normal inspection, no pedal edema Neurologic/Psychiatric: advisor consultant II-XII nml as tested, no motor/sensory deficits, alert, normal mood/affect, oriented x 3 Skin: normal color, warm/dry Progress/Results/Core Measures Results/Orders Lab Results Laboratory Tests Test 06/20/17 09:20 Range/Units White Blood Count 12.7 H 4.3-11.0 10^3/uL Red Blood Count 5.29 4.35-5.85 10^6/uL Hemoglobin 16.7 13.3-17.7 G/DL Hematocrit 45 40-54 % Mean Corpuscular Volume 85 80-99 FL Mean Corpuscular Hemoglobin 32 25-34 PG Mean Corpuscular Hemoglobin Concent 37 H 32-36 G/DL Red Cell Distribution Width 12.5 10.0-14.5 % Platelet Count 238 130-400 10^3/uL Mean Platelet Volume 10.2 7.4-10.4 FL Neutrophils (%) (Auto) 88 H 42-75 % Lymphocytes (%) (Auto) 7 L 12-44 % Monocytes (%) (Auto) 5 0-12 % Eosinophils (%) (Auto) 0 0-10 % Basophils (%) (Auto) 0 0-10 % Neutrophils # (Auto) 11.2 H 1.8-7.8 X 10^3 Lymphocytes # (Auto) 0.9 L 1.0-4.0 X 10^3 Monocytes # (Auto) 0.6 0.0-1.0 X 10^3 Eosinophils # (Auto) 0.0 0.0-0.3 10^3/uL Basophils # (Auto) 0.0 0.0-0.1 10^3/uL Neutrophils % (Manual) 90 % Lymphocytes % (Manual) 5 % Monocytes % (Manual) 3 % Eosinophils % (Manual) 0 % Band Neutrophils 2 % Toxic Granulation 1+ Sodium Level 139 135-145 MMOL/L Potassium Level 3.8 3.6-5.0 MMOL/L Chloride Level 105 98-107 MMOL/L Carbon Dioxide Level 22 21-32 MMOL/L Anion Gap 12 5-14 MMOL/L Blood Urea Nitrogen 11 7-18 MG/DL Creatinine 0.86 0.60-1.30 MG/DL Estimat Glomerular Filtration Rate > 60 BUN/Creatinine Ratio 13 Glucose Level 135 H 70-105 MG/DL Calcium Level 9.3 8.5-10.1 MG/DL Total Bilirubin 1.5 H 0.1-1.0 MG/DL Aspartate Amino Transf (AST/SGOT) 20 5-34 U/L Alanine Aminotransferase (ALT/SGPT) 43 0-55 U/L Alkaline Phosphatase 142 H 40-136 U/L Total Protein 6.8 6.4-8.2 GM/DL Albumin 4.1 3.2-4.5 GM/DL Amylase Level 452 H 25-125 U/L Lipase 1056 H 8-78 U/L Serum Alcohol < 10 <10 MG/DL My Orders Orders - ATILIO DANIEL MD Alcohol (06/20/17 09:25) Amylase (06/20/17 09:25) Cbc With Automated Diff (06/20/17 09:25) Comprehensive Metabolic Panel (06/20/17 09:25) Lipase (06/20/17 09:25) Saline Lock/Iv-Start (06/20/17 09:25) Ns Iv 1000 Ml (Sodium Chloride 0.9%) (06/20/17 09:25) Manual Differential (06/20/17 09:20) Fentanyl Injection (Sublimaze Injection (06/20/17 09:45) Ondansetron Injection (Zofran Injectio (06/20/17 09:45) Famotidine Injection (Pepcid Injection) (06/20/17 09:45) Ns Iv 1000 Ml (Sodium Chloride 0.9%) (06/20/17 09:40) Ondansetron Injection (Zofran Injectio (06/20/17 09:32) Ketorolac Injection (Toradol Injection) (06/20/17 10:30) Medications Given in ED Vital Signs/I&O Vital Sign - Last 12Hours 06/20/17 09:15 Temp 97.2 Pulse 67 Resp 18 B/P (MAP) 142/96 Pulse Ox 98 Blood Pressure Mean: 111 Progress Note : Progress Note Patient received IV fluids, Zofran, and fentanyl. Labs revealed worsening pancreatitis. After fentanyl, patient specifically requested Dilaudid from nursing staff. He was given Toradol for second line pain management. Case was reviewed with Dr. Chavez who agrees with admission. She requested no further narcotics until she has opportunity to assess him. Departure Communication (Admissions) Time/Spoke to Admitting Phy: 10:[address] Deana Chavez Impression Impression: Primary Impression: Acute on chronic pancreatitis Disposition: ADMITTED INPATIENT Condition: Improved Admissions Decision to Admit Reason: Admit from ER (General) Decision to Admit/Date: Jun 20, 2017 Time/Decision to Admit Time: 10:24 Departure-Patient Inst. Referrals: NO,LOCAL PHYSICIAN (PCP/Family) Primary Care Physician ATILIO DANIEL MD Jun 20, 2017 10:33
[2017-06-20 12:00] VITALS: BP 135/86
[2017-06-20] MEDS ORDERED: CATHETER FLUSH 10 ML SYR IV PRN (12:15)
[2017-06-20] MEDS: ONDANSETRON 4 MG/2 ML (SDV) Z0FRAN IV PRN ×2 (12:21→18:58)
[2017-06-20] MEDS: D5 1/2 NS W/KCL 20 MEQ/L 1,000 ML IV SCH ×2 (12:21→20:08)
[2017-06-20] MEDS ORDERED: OMEP40CA36 PO (12:26)
[2017-06-20] MEDS ORDERED: HYDR-3812 PO (12:26)
[2017-06-20] MEDS ORDERED: ACET-2267 PO (12:31)
[2017-06-20] MEDS ORDERED: MULT-851 PO (12:31)
[2017-06-20] MEDS ORDERED: INFLUENZA TRIvalent 2017-2018 0.5 ML/45 MCG SYR IM ONE (15:30)
[2017-06-20] MEDS: KETOROLAC 30 MG/ML VIAL IVP PRN ×2 (15:46→22:00)
[2017-06-20 16:00] VITALS: BP 148/86
[2017-06-20 19:31] VITALS: BP 138/82
[2017-06-20] MEDS ORDERED: PROMETHAZINE INJ 25 MG/ML (PHENERGAN) AMP IVP PRN (21:15)
[2017-06-20] MEDS: FAMOTIDINE 20MG/2ML IV (PEPCID) IV SCH (21:19)
[2017-06-21 00:26] VITALS: BP 135/76
[2017-06-21] MEDS: KETOROLAC 30 MG/ML VIAL IVP PRN ×2 (04:36→10:21)
[2017-06-21] MEDS: D5 1/2 NS W/KCL 20 MEQ/L 1,000 ML IV SCH ×2 (04:37→12:30)
[2017-06-21] MEDS: ONDANSETRON 4 MG/2 ML (SDV) Z0FRAN IV PRN ×3 (04:37→15:43)
[2017-06-21 04:49] VITALS: BP 133/91
[2017-06-21 06:14] LABS: BASOPHILS % (AUTO) 0 % (0-10); EOSINOPHILS # (AUTO) 0.1 10^3/uL (0.0-0.3); EOSINOPHILS % (AUTO) 1 % (0-10); LYMPHOCYTES # (AUTO) 1.5 X 10^3 (1.0-4.0); LYMPHOCYTES % (AUTO) 13 % (12-44); MEAN CORPUSCULAR HEMOGLOBIN 31 PG (25-34); MEAN CORPUSCULAR HGB CONC 37 G/DL (32-36); MEAN CORPUSCULAR VOLUME 86 FL (80-99); MEAN PLATELET VOLUME 10.6 FL (7.4-10.4); MONOCYTES # (AUTO) 0.9 X 10^3 (0.0-1.0); MONOCYTES % (AUTO) 8 % (0-12); NEUTROPHILS # (AUTO) 8.9 X 10^3 (1.8-7.8); NEUTROPHILS % (AUTO) 77 % (42-75); PLATELET COUNT 212 10^3/uL (130-400); RED BLOOD COUNT 5.03 10^6/uL (4.35-5.85); RED CELL DISTRIBUTION WIDTH 12.6 % (10.0-14.5); WHITE BLOOD COUNT 11.5 10^3/uL (4.3-11.0)
[2017-06-21 06:37] LABS: ALANINE AMINOTRANSFERASE 25 U/L (0-55); ALBUMIN 3.7 GM/DL (3.2-4.5); ANION GAP 10 MMOL/L (5-14); ASPARTATE AMINO TRANSFERASE 15 U/L (5-34); BILIRUBIN,TOTAL 1.1 MG/DL (0.1-1.0); BLOOD UREA NITROGEN 7 MG/DL (7-18); BUN/CREATININE RATIO 8; CALCIUM 9.3 MG/DL (8.5-10.1); CARBON DIOXIDE 24 MMOL/L (21-32); CHLORIDE 107 MMOL/L (98-107); GFR ESTIMATED > 60; GLUCOSE 133 MG/DL (70-105); LIPASE 639 U/L (8-78); POTASSIUM 3.9 MMOL/L (3.6-5.0); SODIUM 141 MMOL/L (135-145); TOTAL PROTEIN 6.5 GM/DL (6.4-8.2)
[2017-06-21 08:00] VITALS: BP 136/86
[2017-06-21] MEDS: FAMOTIDINE 20MG/2ML IV (PEPCID) IV SCH (08:08)
--- NOTE | 2017-06-21 10:13 | Discharge Instructions ---
[facility]charge [facility] Discharge Medications New, Converted or Re-Newed RX: Transmitted to Pharmacy Continued Medications: Acetaminophen (Tylenol Extra Strength) 500 Mg Tablet 500-1000 MG PO Q6H PRN for PAIN-MILD, TAB Alprazolam (Xanax) 1 Mg Tablet 1 MG PO BID PRN for ANXIETY, TAB Multivits-Minerals/FA/Lycopene (One Daily For Men Tablet) 1 Each Tablet 1 TAB PO DAILY, TAB Omeprazole (Omeprazole) 40 Mg Capsule.dr 40 MG PO DAILY, CAP Ondansetron (Zofran Odt) 4 Mg Tab.rapdis 4 MG PO Q6H PRN for NAUSEA/VOMITING-1ST LINE, TAB Patient Instructions Goal/Follow Up Appt: DR ZAVALA ON JULY 03 AT 4PM. YOU WILL BE TRANSITIONING TO THE [facility] WITH DR ZAVALA YOUR NEW FAMILY DOCTOR. Patient Instructions: 1. PLEASE TAKE PAIN MEDICATION SPARINGLY. 2. PLEASE TAKE XANAX PRESCRIBED. WE WILL DISCUSS NEXT STEPS AT THE APPOINTMENT. XANAX IS NOT A GOOD [facility] OPTION. WE WILL DISCUSS BETTER MEDICATIONS TO TREAT YOUR SOCIAL ANXIETY AT THE APPOINTMENT. 3. WE WILL DISCUSS WHAT WE NEED TO DO TO MANAGE YOUR CHRONIC PANCREATITIS (REFERRALS, MORE TESTS). Return to The Hospital For: FEVER, VOMITING THAT WON'T STOP, UNCONTROLLED PAIN Activity & Diet Discharge Diet: Soft Diet, Avoid Fatty Foods Activity as Tolerated: Yes Copy Copies To 1: FABRICIO AZVALA MD, JULIE A MD Jun 21, 2017 10:13 am
[2017-06-21] MEDS: morphine INJ 4 MG/ML 1 ML (VIAL/SYRINGE) IVP PRN ×2 (11:20→15:42)
[2017-06-21 12:00] VITALS: BP 132/85
[2017-06-21 15:56] VITALS: BP 143/90
[2017-06-21 16:20] VITALS: BP 132/85
--- NOTE | 2017-06-24 10:48 | Short Stay Summary ---
History of Present Illness History of Present Illness Reason for visit/HPI 27yo gentleman with a history of chronic pancreatitis presented to ER with complaints of increasing abdominal pain over the past few days. Patient initially presented to ER and was discharged to have close follow up in the clinic. HOwever, he returned the following day with worsening pain and an inability to keep anything down. Regarding his pancreatitis, patient used to drink 1/2 pint of whiskey per day but eventually quit. He has not had any alcohol in over a year. In addition, patient reports that he is a patient of Dr Martínez, who recently lost his MIRANDA number for over-prescribing controlled substances. FOr this reason , Shabbir has been unable to obtain his hydrocodone and Xanax. Patient states that he takes the hydrocodone when he is ill and maybe takes it a couple times per day otherwise. He used to buy Xanax off the street but then Dr Martínez diagnosed him with agoraphobia because he can't go out in public without having anxiety. Dr Martínez then prescribed the Xanax (no other meds were tried) so that he wouldn't continue to buy it off the street. Date of Admission Jun 20, 2017 at 10:26 am Date of Discharge Jun 21, 2017 at 4:20 pm Time Seen by Provider: 09:00 Attending Physician Fabricio Zavala MD Admitting Physician No,Local Physician Consult Allergies and Home Medications Allergies Coded Allergies: cefpodoxime (Verified Allergy, Unknown, 10/11/14) Told allergic when he was a child. Reaction unknown. codeine (Verified Adverse Reaction, Mild, NAUSEA/VOMITING, 06/21/17) Home Medications Acetaminophen 500 Mg Tablet, 500-1,000 MG PO Q6H PRN for PAIN-MILD, (Reported) Alprazolam 1 Mg Tablet, 1 MG PO BID PRN for ANXIETY, (Reported) Multivits-Minerals/FA/Lycopene 1 Each Tablet, 1 TAB PO DAILY, (Reported) Omeprazole 40 Mg Capsule.dr, 40 MG PO DAILY, (Reported) Ondansetron 4 Mg Tab.rapdis, 4 MG PO Q6H PRN for NAUSEA/VOMITING-1ST LINE, ( Reported) Past Nesuryx-Zmvhfz-Ewcyzv Hx Patient Social History Alcohol Use: Denies Use Number of Drinks Today: 0 Alcohol Beverage of Choice: Beer Recreational Drug Use: No Smoking Status: Current Someday Smoker Type Used: Cigarettes, Smokeless Tobacco Physical Abuse Screen: No Sexual Abuse: No Recent Foreign Travel: No Contact w/other who traveled: No Recent Hopitalizations: No Recent Infectious Disease Expo: No Immunizations Up To Date Tetanus Booster (TDap): Unknown Pediatric: Yes Seasonal Allergies Seasonal Allergies: No Surgeries No Respiratory No Cardiovascular No Neurological No Reproductive System Hx Reproductive Disorders: No Sexually Transmitted Disease: No HIV/AIDS: No Genitourinary No Gastrointestinal Yes Gastroesophageal Reflux, Pancreatitis Musculoskeletal No Endocrine History of Endocrine Disorders: No HEENT History of HEENT Disorders: No Cancer No Did You Recieve Any Treatments: No Psychosocial History of Psychiatric Problem: Yes Behavioral Health Disorders: Anxiety Integumentary History of Skin or Integumenta: No Blood Transfusions History of Blood Disorders: No Adverse Reaction to a Blood Tr: No Family Medical History Significant Family History: No Pertinent Family Hx Family Hx: Patient reports no known family medical history. Constitutional: see HPI All Other Systems Reviewed Negative Unless Noted: Yes Physical Exam Vital Signs Vital Sign - Last 12Hours 06/20/17 09:15 Temp 97.2 Pulse 67 Resp 18 B/P (MAP) 142/96 Pulse Ox 98 Capillary Refill : Less Than 3 Seconds General Appearance: No Apparent Distress, WD/WN HEENT: PERRL/EOMI, Normal ENT Inspection, Pharynx Normal Neck: Full Range of Motion, Normal Inspection, Non Tender, Supple, Carotid Bruit Respiratory: Chest Non Tender, Lungs Clear, Normal Breath Sounds, No Accessory Muscle Use, No Respiratory Distress Cardiovascular: Regular Rate, Rhythm, No Edema, No Gallop, No JVD, No Murmur, Normal Peripheral Pulses Gastrointestinal: Normal Bowel Sounds, No Organomegaly, No Pulsatile Mass, Non Tender, Soft Extremity: Normal Capillary Refill, Normal Inspection, Normal Range of Motion, Non Tender, No Calf Tenderness, No Pedal Edema Neurologic/Psychiatric: Alert, Oriented x3, No Motor/Sensory Deficits, Normal Mood/Affect, burial vault setter II-XII Norm as Tested Skin: Normal Color, Warm/Dry Clinical Quality Measures DVT/VTE Risk/Contraindication: Risk Factor Score Per Nursin RFS Level Per Nursing on Admit: 1=Low/No VTE PPX Short Stay Diagnosis Discharge Diagnosis-Short Stay Admission Diagnosis: ACUTE PANCREATITIS CHRONIC PANCREATITIS OPIATE DEPENDENCE BENZODIAZEPINE DEPENDENCE HISTORY OF ALCOHOLISM, IN SUSTAINED REMISSION Final Discharge Diagnosis: SAME Conclusion Conclusion/Plan Shabbir was admitted to hospital for aggressive rehydration and bowel rest. He improved markedly over the 24h he was in hospital. The day after admission, he progressed to clear fluids. He tolerated those well. Shabbir requested to go home early d/t the . We made arrangements for him to follow up with me on an outpatient basis. We discussed using narcotics sparingly and weaning off the xanax. I will change him to klonopin when he finishes this bottle of Xanax. He is agreeable to this plan and will see me in clinic in 2 weeks. Copy Copies To 1: FABRICIO ZAVALA MD, JULIE A MD Jun 24, 2017 10:48 am
== END 2017-06-21 16:20 | disposition home or self-care (01) | DRG 440 ==
LOC: EDUNIT# 09:01 → ER 09:02 → 4TH 10:26
PROVIDERS: ADMIT Pediatrics; ATTEND Pediatrics
DX: K85.90 Acute pancreatitis without necrosis or infection, unspecified (principal); K86.1 Other chronic pancreatitis; F41.9 Anxiety disorder, unspecified; Z79.891 Long term (current) use of opiate analgesic; Z79.899 Other long term (current) drug therapy; F10.21 Alcohol dependence, in remission
CPT/HCPCS: 36415; 80053; 80320; 82150; 83690; 85007; 85025; 85027; 96374; 96375

== ENCOUNTER 2017-08-10 09:12 | Emergency (ER) | payer SELFPAY ==
[~2017-08-10] VITALS: Ht 165.1 cm; Wt 79.4 kg
[~2017-08-10 09:12] MED LIST changes: +ACET-2267 PO; +ACHD5005 PO; -HYDR-3812 PO; +HYDR-3816 PO; +MULT-851 PO; +OMEP40CA36 PO
[2017-08-10] MEDS ORDERED: NS IV 1000 ML 1,000 ML IV ONE (11:16)
[2017-08-10] MEDS ORDERED: IBUPROFEN TABLET 200 MG TAB PO STA (11:16)
[2017-08-10] MEDS ORDERED: ONDANSETRON 4 MG/2 ML (SDV) Z0FRAN IVP ONE (11:30)
[2017-08-10] MEDS ORDERED: PANTOPRAZOLE 40 MG (PROTONIX) TAB PO ONE (11:30)
--- NOTE | 2017-08-10 12:01 | ED Respiratory ---
General Chief Complaint: Respiratory Problems Stated Complaint: SOA, N/V/D Nursing Triage Note: MULTIPLE C/O. STATES HE'S HAVING PANIC ATTACKS. FEELS THAT THROAT IS CONSTRICTED. PT. STATES [facility] TOOK HIM OFF HIS ANXIETY MEDS ABOUT A MONTH AGO. ALSO C/O FLU-LIKE SXS. N/V/D. C/O SOA History of Present Illness Time seen by provider: 11:10 Initial Comments 27-year-old male presents for nausea and vomiting present for 3 days. He reports no solid food intake but he is taking Sprite with no vomiting. He has had anxiety for some time, he was being treated with Xanax for the last 2 years and was recently stopped on this. He was started on Paxil for his anxiety. He reports feeling short of breath. He is taking hydrocodone for multiple complaints of pain, most recently because of an ankle fracture. He took a half a tablet last evening at 10 PM. He attempted to get in to see Dr. Zavala on Monday, when they returned his call today to schedule an appointment , he reported he was coming here. He also complains of GERD, he has been on omeprazole for some time and is out of his prescription. Timing/Duration: intermittent Severity: mild Prior Episodes/Possible Cause: occasional episodes Associated Symptoms: cough, fever/chills, shortness of breath, sore throat, other (anxiety) Allergies and Home Medications Allergies Coded Allergies: cefpodoxime (Verified Allergy, Unknown, 10/11/14) Told allergic when he was a child. Reaction unknown. codeine (Verified Adverse Reaction, Mild, NAUSEA/VOMITING, 06/21/17) Home Medications Alprazolam 1 Mg Tablet, 1 MG PO BID PRN for ANXIETY, (Reported) Hydrocodone/Acetaminophen 1 Each Tablet, 1 EACH PO Q4H, #60 Prescribed by: HANNAH GLYNN on 07/11/17 0715 Multivits-Minerals/FA/Lycopene 1 Each Tablet, 1 TAB PO DAILY, (Reported) Omeprazole 40 Mg Capsule., 40 MG PO DAILY, (Reported) Omeprazole 20 Mg Capsule., 20 MG PO DAILY, #20 Ref 0 Prescribed by: YAO BOWSER on 08/10/17 1248 Ondansetron 4 Mg Tab.rapdis, 4 MG PO Q6H PRN for NAUSEA/VOMITING-1ST LINE, ( Reported) Constitutional: see HPI, weakness EENTM: see HPI, no symptoms reported Respiratory: see HPI, short of breath Cardiovascular: no symptoms reported, see HPI Gastrointestinal: see HPI, diarrhea, heartburn, nausea, vomiting Psychiatric/Neurological: See HPI, Anxiety All Other Systems Reviewed Negative Unless Noted: Yes Past Uciexdj-Nswtjg-Tkxfnc Hx Patient Social History Alcohol Use: Denies Use Number of Drinks Today: AA Alcohol Beverage of Choice: Beer Recreational Drug Use: No Smoking Status: Current Everyday Smoker Type Used: Cigarettes Recent Foreign Travel: No Contact w/Someone Who Travel: No Recent Infectious Disease Expo: No Recent Hopitalizations: Yes ([place] PL[place] TO L-LEG ABOUT A MONTH AGO) Immunizations Up To Date Tetanus Booster (TDap): Unknown PED Vaccines UTD: No Seasonal Allergies Seasonal Allergies: No Surgeries History of Surgeries: Yes (L-BROKEN LEG [place] PLACED) Respiratory History of Respiratory Disorde: No Cardiovascular History of Cardiac Disorders: No Neurological History of Neurological Disord: No Reproductive System Hx Reproductive Disorders: No Sexually Transmitted Disease: No HIV/AIDS: No Genitourinary History of Genitourinary Disor: No Gastrointestinal History of Gastrointestinal Di: Yes Gastrointestinal Disorders: Gastroesophageal Reflux, Pancreatitis Musculoskeletal History of Musculoskeletal Dis: Yes (RT CLUB FOOT WHEN YOUNGER) Musculoskeletal Disorders: Fractures Endocrine History of Endocrine Disorders: No HEENT History of HEENT Disorders: No Cancer History of Cancer: No Did You Recieve Any Treatments: No Psychosocial History of Psychiatric Problem: Yes Behavioral Health Disorders: ADD/ADHD, Anxiety Integumentary History of Skin or Integumenta: No Blood Transfusions History of Blood Disorders: No Adverse Reaction to a Blood Tr: No Reviewed Nursing Assessment Reviewed/Agree w Nursing PMH: Yes Family Medical History Significant Family History: No Pertinent Family Hx Family Medial History: Patient reports no known family medical history. Physical Exam Vital Signs Vital Sign - Last 12Hours 08/10/17 09:49 Temp 100.5 Pulse 109 Resp 18 B/P (MAP) 141/85 (103) Pulse Ox 97 O2 Delivery Room Air Capillary Refill : Less Than 3 Seconds General Appearance: WD/WN, no apparent distress Eyes: Bilateral Eye Normal Inspection, Bilateral Eye PERRL, Bilateral Eye EOMI HEENT: PERRL/EOMI, normal ENT inspection, TMs normal, pharynx normal, No pharyngeal erythema, No tonsillar exudate Neck: non-tender, full range of motion, supple, No lymphadenopathy (R), No lymphadenopathy (L) Respiratory: chest non-tender, lungs clear, normal breath sounds, no respiratory distress Cardiovascular: normal peripheral pulses, regular rate, rhythm, no edema, no murmur Gastrointestinal: normal bowel sounds, non tender, soft, No distended, No guarding, No rebound, No tenderness Neurologic/Psychiatric: no motor/sensory deficits, alert (makes good eye contact through exam, answers questions appropriately.), normal mood/affect, oriented x 3 Skin: normal color, warm/dry Lymphatic: no adenopathy Progress/Results/Core Measures Suspected Sepsis Recent Fever Within 48 Hours: Yes Infection Criteria Present: Suspected New Infection New/Unexplained Altered Menta: No Sepsis Screen: Possible Sepsis Risk Sepsis Diagnosis: SIRS Temperature:100.5 Pulse: 109 Respiratory Rate: 18 Laboratory Tests 08/10/17 10:07: White Blood Count 7.8 Blood Pressure 141 /85 Mean: 103 Laboratory Tests 08/10/17 10:07: Creatinine 0.98, Platelet Count 249, Total Bilirubin 1.2H Results/Orders Lab Results Laboratory Tests Test 08/10/17 10:07 Range/Units White Blood Count 7.8 4.3-11.0 10^3/uL Red Blood Count 5.53 4.35-5.85 10^6/uL Hemoglobin 17.2 13.3-17.7 G/DL Hematocrit 46 40-54 % Mean Corpuscular Volume 84 80-99 FL Mean Corpuscular Hemoglobin 31 25-34 PG Mean Corpuscular Hemoglobin Concent 37 H 32-36 G/DL Red Cell Distribution Width 12.2 10.0-14.5 % Platelet Count 249 130-400 10^3/uL Mean Platelet Volume 11.8 H 7.4-10.4 FL Neutrophils (%) (Auto) 57 42-75 % Lymphocytes (%) (Auto) 34 12-44 % Monocytes (%) (Auto) 8 0-12 % Eosinophils (%) (Auto) 1 0-10 % Basophils (%) (Auto) 0 0-10 % Neutrophils # (Auto) 4.5 1.8-7.8 X 10^3 Lymphocytes # (Auto) 2.6 1.0-4.0 X 10^3 Monocytes # (Auto) 0.6 0.0-1.0 X 10^3 Eosinophils # (Auto) 0.1 0.0-0.3 10^3/uL Basophils # (Auto) 0.0 0.0-0.1 10^3/uL Sodium Level 140 135-145 MMOL/L Potassium Level 3.3 L 3.6-5.0 MMOL/L Chloride Level 103 98-107 MMOL/L Carbon Dioxide Level 21 21-32 MMOL/L Anion Gap 16 H 5-14 MMOL/L Blood Urea Nitrogen 14 7-18 MG/DL Creatinine 0.98 0.60-1.30 MG/DL Estimat Glomerular Filtration Rate > 60 BUN/Creatinine Ratio 14 Glucose Level 104 70-105 MG/DL Calcium Level 10.3 H 8.5-10.1 MG/DL Total Bilirubin 1.2 H 0.1-1.0 MG/DL Aspartate Amino Transf (AST/SGOT) 14 5-34 U/L Alanine Aminotransferase (ALT/SGPT) 16 0-55 U/L Alkaline Phosphatase 105 40-136 U/L Total Protein 8.0 6.4-8.2 GM/DL Albumin 5.2 H 3.2-4.5 GM/DL Micro Results Microbiology 08/10/17 Influenza Types A,B Antigen (RON) - Final, Complete My Orders Orders - YAO BOWSER Saline Lock/Iv-Start (08/10/17 11:16) Ns Iv 1000 Ml (Sodium Chloride 0.9%) (08/10/17 11:16) Influenza A And B Antigens (08/10/17 11:16) Ondansetron Injection (Zofran Injectio (08/10/17 11:30) Ibuprofen Tablet (Motrin Tablet) (08/10/17 11:16) Pantoprazole Tablet (Protonix Tablet) (08/10/17 11:30) Cbc With Automated Diff (08/10/17 12:17) Comprehensive Metabolic Panel (08/10/17 12:17) Medications Given in ED Current Medications Medications Dose Ordered Sig/Imer Route Start Time Stop Time Status Last Admin Dose Admin Ondansetron HCl 4 mg ONCE ONCE IVP 08/10/17 11:30 08/10/17 11:31 DC 08/10/17 11:29 4 MG Pantoprazole Sodium 40 mg ONCE ONCE PO 08/10/17 11:30 08/10/17 11:31 DC 08/10/17 11:31 40 MG Sodium Chloride 1,000 ml @ 0 mls/hr Q0M ONCE IV 08/10/17 11:16 08/10/17 11:18 DC 08/10/17 11:30 1,000 MLS/HR Vital Signs/I&O Vital Sign - Last 12Hours 08/10/17 08/10/17 09:49 12:58 Temp 100.5 Pulse 109 79 Resp 18 18 B/P (MAP) 141/85 (103) Pulse Ox 97 96 O2 Delivery Room Air Room Air Capillary Refill : Less Than 3 Seconds Blood Pressure Mean: 103 Progress Note : Time: 11:10 Progress Note Initial evaluation completed, will give normal saline 1 L IV, Zofran 4 mg IV for nausea, protonix, ibuprofen 600 mg by mouth. CBC and CMP, influenza screen. 1200 influenza A and B-. CBC and CMP essentially normal. Patient reports nausea has improved. 1230 patient reports passing a large stool. No further nausea. Discussed with patient the importance of following up with Dr. Zavala for pain and anxiety management. 1240 discharge planning and return precautions reviewed with patient. All questions answered. Departure Impression Impression: Primary Impression: Generalized anxiety disorder Additional Impressions: Nausea vomiting and diarrhea GERD (gastroesophageal reflux disease) Qualified Codes: K21.9 - Gastro-esophageal reflux disease without esophagitis Disposition: 01 HOME, SELF-CARE Condition: Stable Departure-Patient Inst. Decision time for Depature: 12:40 Referrals: NO,LOCAL PHYSICIAN (PCP/Family) Primary Care Physician Patient Instructions: Anxiety, Adult (DC), Nausea and Vomiting, Adult (DC) Add. Discharge Instructions: Clear liquid diet for the next 6 hours. If no further nausea or vomiting, may advance to a bland diet, when tolerating bland diet for 6 hours, may resume regular diet. Avoid spicy or greasy foods. Take Zofran every 6 hours as needed for nausea and vomiting. Resume omeprazole. Follow-up with Dr. Zavala for anxiety, call clinic for appointment. Return to emergency department for new problems or concerns. All discharge instructions reviewed with patient and/or family. Voiced understanding. Scripts Omeprazole (Omeprazole) 20 Mg Capsule. 20 MG PO DAILY, #20 CAP 0 Refills Prov: YAO BOWSER 08/10/17 Copy Copies To 1: FABRICIO ZAVALA MD, AMY ARNP Aug 10, 2017 12:01
[2017-08-10 12:37] LABS: BASOPHILS % (AUTO) 0 % (0-10); EOSINOPHILS # (AUTO) 0.1 10^3/uL (0.0-0.3); EOSINOPHILS % (AUTO) 1 % (0-10); HEMATOCRIT 46 % (40-54); HEMOGLOBIN 17.2 G/DL (13.3-17.7); LYMPHOCYTES # (AUTO) 2.6 X 10^3 (1.0-4.0); LYMPHOCYTES % (AUTO) 34 % (12-44); MEAN CORPUSCULAR HEMOGLOBIN 31 PG (25-34); MEAN CORPUSCULAR HGB CONC 37 G/DL (32-36); MEAN CORPUSCULAR VOLUME 84 FL (80-99); MEAN PLATELET VOLUME 11.8 FL (7.4-10.4); MONOCYTES # (AUTO) 0.6 X 10^3 (0.0-1.0); MONOCYTES % (AUTO) 8 % (0-12); NEUTROPHILS # (AUTO) 4.5 X 10^3 (1.8-7.8); NEUTROPHILS % (AUTO) 57 % (42-75); PLATELET COUNT 249 10^3/uL (130-400); RED BLOOD COUNT 5.53 10^6/uL (4.35-5.85); RED CELL DISTRIBUTION WIDTH 12.2 % (10.0-14.5); WHITE BLOOD COUNT 7.8 10^3/uL (4.3-11.0)
[2017-08-10] MEDS ORDERED: OMEP20CA12 PO (12:48)
[2017-08-10 12:50] LABS: ALANINE AMINOTRANSFERASE 16 U/L (0-55); ALBUMIN 5.2 GM/DL (3.2-4.5); ALKALINE PHOSPHATASE 105 U/L (40-136); BILIRUBIN,TOTAL 1.2 MG/DL (0.1-1.0); BUN/CREATININE RATIO 14; CALCIUM 10.3 MG/DL (8.5-10.1); CARBON DIOXIDE 21 MMOL/L (21-32); CHLORIDE 103 MMOL/L (98-107); CREATININE SERUM 0.98 MG/DL (0.60-1.30); GFR ESTIMATED > 60; GLUCOSE 104 MG/DL (70-105); POTASSIUM 3.3 MMOL/L (3.6-5.0); SODIUM 140 MMOL/L (135-145)
[2017-08-10 12:58] VITALS: BP 133/97
--- OUTSIDE RECORDS SUMMARY | 2017-08-10 20:18 | XMS REPORT | Continuity of Care Document ---
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 0.0-1.0 Automated eosinophil count 0.0 10*3/uL 0.0-0.3 Automated blood basophil count (count/volume) 0.0 10*3/uL 0.0-0.1 Comprehensive metabolic panel - 06/20/17 09:20 Serum or plasma sodium measurement (moles/volume) 139 mmol/L 135-145 Serum or plasma potassium measurement (moles/volume) 3.8 mmol/L 3.6-5.0 Serum or plasma chloride measurement (moles/volume) 105 mmol/L 98-107 Carbon dioxide 22 mmol/L 21-32 Serum or plasma anion gap determination (moles/volume) 12 mmol/L 5-14 Serum or plasma urea nitrogen measurement (mass/volume) 11 mg/dL 7-18 Serum or plasma creatinine measurement (mass/volume) 0.86 mg/dL 0.60-1.30 Serum or plasma urea nitrogen/creatinine mass ratio 13 NRG Serum or plasma creatinine measurement with calculation of estimated glomerular filtration rate > NRG Serum or plasma glucose measurement (mass/volume) 135 mg/dL 70-105 Serum or plasma calcium measurement (mass/volume) 9.3 mg/dL 8.5-10.1 Serum or plasma total bilirubin measurement (mass/volume) 1.5 mg/dL 0.1-1.0 Serum or plasma alkaline phosphatase measurement (enzymatic activity/volume) 142 U/L 40-136 Serum or plasma aspartate aminotransferase measurement (enzymatic activity/ volume) 20 U/L 5-34 Serum or plasma alanine aminotransferase measurement (enzymatic activity/volume ) 43 U/L 0-55 Serum or plasma protein measurement (mass/volume) 6.8 g/dL 6.4-8.2 Serum or plasma albumin measurement (mass/volume) 4.1 g/dL 3.2-4.5 Serum or plasma amylase measurement (enzymatic activity/volume) - 06/20/17 09: 20 Serum or plasma amylase measurement (enzymatic activity/volume) 452 U/L 25-125 Lipase - 06/20/17 09:20 Lipase 1056 U/L 878 Serum or plasma ethanol measurement (mass/volume) - 06/20/17 09:20 Serum or plasma ethanol measurement (mass/volume) < mg/dL <10 Blood manual differential performed detection - 06/20/17 09:20 Blood monocytes/100 leukocytes 3 % NRG Manual blood segmented neutrophils/100 leukocytes 90 % NRG Blood band neutrophils/100 leukocytes 2 % NRG Manual blood lymphocytes/100 leukocytes 5 % NRG Manual eosinophils/100 leukocytes in nose 0 % NRG Blood toxic granules detection by light microscopy 1+ NRG Lipase - 06/20/17 13:50 Lipase 807 U/L 8-78 Complete blood count (CBC) with automated white blood cell (WBC) differential - 06/21/17 05:34 Blood leukocytes automated count (number/volume) 11.5 10*3/uL 4.3-11.0 Blood erythrocytes automated count (number/volume) 5.03 10*6/uL 4.35-5.85 Venous blood hemoglobin measurement (mass/volume) 15.8 g/dL 13.3-17.7 Blood hematocrit (volume fraction) 43 % 40-54 Automated erythrocyte mean corpuscular volume 86 [foz_us] 80-99 Automated erythrocyte mean corpuscular hemoglobin (mass per erythrocyte) 31 pg 25-34 Automated erythrocyte mean corpuscular hemoglobin concentration measurement ( mass/volume) 37 g/dL 32-36 Automated erythrocyte distribution width ratio 12.6 % 10.0-14.5 Automated blood platelet count (count/volume) 212 10*3/uL 130-400 Automated blood platelet mean volume measurement 10.6 [foz_us] 7.4-10.4 Automated blood neutrophils/100 leukocytes 77 % 42-75 Automated blood lymphocytes/100 leukocytes 13 % 12-44 Blood monocytes/100 leukocytes 8 % 0-12 Automated blood eosinophils/100 leukocytes 1 % 0-10 Automated blood basophils/100 leukocytes 0 % 0-10 Blood neutrophils automated count (number/volume) 8.9 10*3 1.8-7.8 Blood lymphocytes automated count (number/volume) 1.5 10*3 1.0-4.0 Blood monocytes automated count (number/volume) 0.9 10*3 0.0-1.0 Automated eosinophil count 0.1 10*3/uL 0.0-0.3 Automated blood basophil count (count/volume) 0.0 10*3/uL 0.0-0.1 Comprehensive metabolic panel - 06/21/17 05:34 Serum or plasma sodium measurement (moles/volume) 141 mmol/L 135-145 Serum or plasma potassium measurement (moles/volume) 3.9 mmol/L 3.6-5.0 Serum or plasma chloride measurement (moles/volume) 107 mmol/L 98-107 Carbon dioxide 24 mmol/L 21-32 Serum or plasma anion gap determination (moles/volume) 10 mmol/L 5-14 Serum or plasma urea nitrogen measurement (mass/volume) 7 mg/dL 7-18 Serum or plasma creatinine measurement (mass/volume) 0.90 mg/dL 0.60-1.30 Serum or plasma urea nitrogen/creatinine mass ratio 8 NRG Serum or plasma creatinine measurement with calculation of estimated glomerular filtration rate > NRG Serum or plasma glucose measurement (mass/volume) 133 mg/dL 70-105 Serum or plasma calcium measurement (mass/volume) 9.3 mg/dL 8.5-10.1 Serum or plasma total bilirubin measurement (mass/volume) 1.1 mg/dL 0.1-1.0 Serum or plasma alkaline phosphatase measurement (enzymatic activity/volume) 116 U/L 40-136 Serum or plasma aspartate aminotransferase measurement (enzymatic activity/ volume) 15 U/L 5-34 Serum or plasma alanine aminotransferase measurement (enzymatic activity/volume ) 25 U/L 0-55 Serum or plasma protein measurement (mass/volume) 6.5 g/dL 6.4-8.2 Serum or plasma albumin measurement (mass/volume) 3.7 g/dL 3.2-4.5 Lipase - 06/21/17 05:34 Lipase 639 U/L 8-78 Complete blood count (CBC) with automated white blood cell (WBC) differential - 07/09/17 20:15 Blood leukocytes automated count (number/volume) 8.9 10*3/uL 4.3-11.0 Blood erythrocytes automated count (number/volume) 5.62 10*6/uL 4.35-5.85 Venous blood hemoglobin measurement (mass/volume) 17.5 g/dL 13.3-17.7 Blood hematocrit (volume fraction) 48 % 40-54 Automated erythrocyte mean corpuscular volume 86 [foz_us] 80-99 Automated erythrocyte mean corpuscular hemoglobin (mass per erythrocyte) 31 pg 25-34 Automated erythrocyte mean corpuscular hemoglobin concentration measurement ( mass/volume) 36 g/dL 32-36 Automated erythrocyte distribution width ratio 12.5 % 10.0-14.5 Automated blood platelet count (count/volume) 312 10*3/uL 130-400 Automated blood platelet mean volume measurement 10.2 [foz_us] 7.4-10.4 Automated blood neutrophils/100 leukocytes 55 % 42-75 Automated blood lymphocytes/100 leukocytes 39 % 12-44 Blood monocytes/100 leukocytes 5 % 0-12 Automated blood eosinophils/100 leukocytes 1 % 0-10 Automated blood basophils/100 leukocytes 1 % 0-10 Blood neutrophils automated count (number/volume) 4.9 10*3 1.8-7.8 Blood lymphocytes automated count (number/volume) 3.4 10*3 1.0-4.0 Blood monocytes automated count (number/volume) 0.4 10*3 0.0-1.0 Automated eosinophil count 0.1 10*3/uL 0.0-0.3 Automated blood basophil count (count/volume) 0.1 10*3/uL 0.0-0.1 Comprehensive metabolic panel - 07/09/17 20:15 Serum or plasma sodium measurement (moles/volume) 146 mmol/L 135-145 Serum or plasma potassium measurement (moles/volume) 3.9 mmol/L 3.6-5.0 Serum or plasma chloride measurement (moles/volume) 106 mmol/L 98-107 Carbon dioxide 24 mmol/L 21-32 Serum or plasma anion gap determination (moles/volume) 16 mmol/L 5-14 Serum or plasma urea nitrogen measurement (mass/volume) 7 mg/dL 7-18 Serum or plasma creatinine measurement (mass/volume) 0.95 mg/dL 0.60-1.30 Serum or plasma urea nitrogen/creatinine mass ratio 7 NRG Serum or plasma creatinine measurement with calculation of estimated glomerular filtration rate > NRG Serum or plasma glucose measurement (mass/volume) 135 mg/dL 70-105 Serum or plasma calcium measurement (mass/volume) 9.0 mg/dL 8.5-10.1 Serum or plasma total bilirubin measurement (mass/volume) 0.3 mg/dL 0.1-1.0 Serum or plasma alkaline phosphatase measurement (enzymatic activity/volume) 118 U/L 40-136 Serum or plasma aspartate aminotransferase measurement (enzymatic activity/ volume) 38 U/L 5-34 Serum or plasma alanine aminotransferase measurement (enzymatic activity/volume ) 45 U/L 0-55 Serum or plasma protein measurement (mass/volume) 7.8 g/dL 6.4-8.2 Serum or plasma albumin measurement (mass/volume) 4.6 g/dL 3.2-4.5 Serum or plasma ethanol measurement (mass/volume) - 07/09/17 20:15 Serum or plasma ethanol measurement (mass/volume) 243 mg/dL <10 Whole blood hemoglobin and hematocrit panel - 07/10/17 05:44 Venous blood hemoglobin measurement (mass/volume) 15.6 g/dL 13.3-17.7 Blood hematocrit (volume fraction) 44 % 40-54 Whole blood hemoglobin and hematocrit panel - 07/11/17 06:00 Venous blood hemoglobin measurement (mass/volume) 14.8 g/dL 13.3-17.7 Blood hematocrit (volume fraction) 42 % 40-54 Complete blood count (CBC) with automated white blood cell (WBC) differential - 08/10/17 10:07 Blood leukocytes automated count (number/volume) 7.8 10*3/uL 4.3-11.0 Blood erythrocytes automated count (number/volume) 5.53 10*6/uL 4.35-5.85 Venous blood hemoglobin measurement (mass/volume) 17.2 g/dL 13.3-17.7 Blood hematocrit (volume fraction) 46 % 40-54 Automated erythrocyte mean corpuscular volume 84 [foz_us] 80-99 Automated erythrocyte mean corpuscular hemoglobin (mass per erythrocyte) 31 pg 25-34 Automated erythrocyte mean corpuscular hemoglobin concentration measurement ( mass/volume) 37 g/dL 32-36 Automated erythrocyte distribution width ratio 12.2 % 10.0-14.5 Automated blood platelet count (count/volume) 249 10*3/uL 130-400 Automated blood platelet mean volume measurement 11.8 [foz_us] 7.4-10.4 Automated blood neutrophils/100 leukocytes 57 % 42-75 Automated blood lymphocytes/100 leukocytes 34 % 12-44 Blood monocytes/100 leukocytes 8 % 0-12 Automated blood eosinophils/100 leukocytes 1 % 0-10 Automated blood basophils/100 leukocytes 0 % 0-10 Blood neutrophils automated count (number/volume) 4.5 10*3 1.8-7.8 Blood lymphocytes automated count (number/volume) 2.6 10*3 1.0-4.0 Blood monocytes automated count (number/volume) 0.6 10*3 0.0-1.0 Automated eosinophil count 0.1 10*3/uL 0.0-0.3 Automated blood basophil count (count/volume) 0.0 10*3/uL 0.0-0.1 Comprehensive metabolic panel - 08/10/17 10:07 Serum or plasma sodium measurement (moles/volume) 140 mmol/L 135-145 Serum or plasma potassium measurement (moles/volume) 3.3 mmol/L 3.6-5.0 Serum or plasma chloride measurement (moles/volume) 103 mmol/L 98-107 Carbon dioxide 21 mmol/L 21-32 Serum or plasma anion gap determination (moles/volume) 16 mmol/L 5-14 Serum or plasma urea nitrogen measurement (mass/volume) 14 mg/dL 7-18 Serum or plasma creatinine measurement (mass/volume) 0.98 mg/dL 0.60-1.30 Serum or plasma urea nitrogen/creatinine mass ratio 14 NRG Serum or plasma creatinine measurement with calculation of estimated glomerular filtration rate > NRG Serum or plasma glucose measurement (mass/volume) 104 mg/dL 70-105 Serum or plasma calcium measurement (mass/volume) 10.3 mg/dL 8.5-10.1 Serum or plasma total bilirubin measurement (mass/volume) 1.2 mg/dL 0.1-1.0 Serum or plasma alkaline phosphatase measurement (enzymatic activity/volume) 105 U/L 40-136 Serum or plasma aspartate aminotransferase measurement (enzymatic activity/ volume) 14 U/L 5-34 Serum or plasma alanine aminotransferase measurement (enzymatic activity/volume ) 16 U/L 0-55 Serum or plasma protein measurement (mass/volume) 8.0 g/dL 6.4-8.2 Serum or plasma albumin measurement (mass/volume) 5.2 g/dL 3.2-4.5 Influenza virus A and B antigen detection - 08/10/17 11:45 FLU RESULT NEGATIVE FOR INFLUENZA A AND B ANTIGENS BY IA NRG Encounters ACCT No. Visit Date/Time Discharge Status Pt. Type Provider Facility Loc./Unit Complaint [id number] 07/09/2017 20:56:00 07/11/2017 13:17:00 DIS Inpatient GRETTA JOHNSON, HANNAH Ricketts [facility] 4TH FALL [id number] 06/20/2017 10:26:00 06/21/2017 16:20:00 DIS Inpatient EULALIA JOHNSON, FABRICIO Bernard [address] ACUTE ON CHRONIC PANCREATITIS [id number] 06/19/2017 17:49:00 06/19/2017 21:35:00 DIS Outpatient MELVIN JOHNSON, SANTIAGO Smith [facility] ER ABD PAIN [id number] 12/01/2016 17:21:00 12/01/2016 19:02:00 DIS Emergency AUDREY POTTER APRN [facility] ER CHEST PAIN,SOA [id number] 06/01/2016 08:27:00 06/03/2016 12:12:00 DIS Inpatient OSWALDO SANTILLAN DO [facility] 4TH PANCREATITIS [id number] 05/31/2016 16:26:00 05/31/2016 23:59:59 CLS Emergency MARÍA JOHNSON, ATILIO Garcia [facility] ER ABD PAIN [id number] 09/28/2015 16:15:00 10/05/2015 11:35:00 DIS Inpatient VANDANA JOHNSON, FRANK Wheeler [facility] 4TH [id number] 08/10/2017 12:10:00 Document Registration [id number] 10/11/2014 21:23:00 Document Registration
== END 2017-08-10 12:56 | disposition home or self-care (01) ==
LOC: EDUNIT# 09:12 → ER 09:13
DX: F41.9 Anxiety disorder, unspecified (principal); R11.2 Nausea with vomiting, unspecified; R19.7 Diarrhea, unspecified; K21.9 Gastro-esophageal reflux disease without esophagitis; F90.9 Attention-deficit hyperactivity disorder, unspecified type; F17.210 Nicotine dependence, cigarettes, uncomplicated; Z87.19 Personal history of other diseases of the digestive system
CPT/HCPCS: 36415; 80053; 85025; 87804; 96361; 96374

== ENCOUNTER 2018-06-24 18:14 | Emergency (ER) | payer SELFPAY ==
[~2018-06-24] VITALS: Ht 165.1 cm; Wt 81.6 kg
[~2018-06-24 18:14] MED LIST changes: +HYDR-34 PO; -HYDR-3816 PO
[2018-06-24] MEDS ORDERED: KETOROLAC 30 MG/ML VIAL IVP ONE (18:30)
--- NOTE | 2018-06-24 18:32 | ED General ---
General Chief Complaint: General Problems/Pain Stated Complaint: PAIN IN LOWER BACK Source of Information: Patient Exam Limitations: No Limitations History of Present Illness Date Seen by Provider: Jun 24, 2018 Time Seen by Provider: 18:30 Initial Comments To ER per private vehicle with reports of worsening left flank pain. This began around , worsened this evening. Pain now radiates down to the left groin and into the left testicles. No dysuria, no fevers chills nausea or vomiting. No history of this. Timing/Duration: 2-3 Days, Getting Worse Severity: Moderate Associated Systoms: No Fever/Chills, No Nausea/Vomiting Allergies and Home Medications Allergies Coded Allergies: cefpodoxime (Verified Allergy, Unknown, 10/11/14) Told allergic when he was a child. Reaction unknown. codeine (Verified Adverse Reaction, Mild, NAUSEA/VOMITING, 06/21/17) Home Medications Alprazolam 1 Mg Tablet, 1 MG PO BID PRN for ANXIETY, (Reported) Hydrocodone Bit/Acetaminophen 1 Each Tablet, 1 EACH PO Q4H Prescribed by: HANNAH GLYNN on 07/11/17 0715 Hydrocodone/Acetaminophen 1 Each Tablet, 1 EACH PO Q4H PRN for PAIN-MODERATE Do not fill unless Flomax is also filled Prescribed by: AUDREY POTTER on 06/24/181904 Ibuprofen 800 Mg Tablet, 800 MG PO Q8H PRN for PAIN Prescribed by: AUDREY POTTER on 06/24/181904 Multivits-Minerals/FA/Lycopene 1 Each Tablet, 1 TAB PO DAILY, (Reported) Omeprazole 40 Mg Capsule., 40 MG PO DAILY, (Reported) Omeprazole 20 Mg Capsule., 20 MG PO DAILY Prescribed by: YAO BOWSER on 08/10/17 1248 Ondansetron 4 Mg Tab.rapdis, 4 MG PO Q6H PRN for NAUSEA/VOMITING-1ST LINE, ( Reported) Tamsulosin HCl 0.4 Mg Cap, 0.4 MG PO DAILY Prescribed by: AUDREY POTTER on 06/24/181904 Patient Home Medication List Home Medication List Reviewed: Yes Review of Systems Review of Systems Constitutional: see HPI; No chills, No fever EENTM: see HPI Respiratory: no symptoms reported Cardiovascular: no symptoms reported Genitourinary: see HPI, pain (left flank) Musculoskeletal: no symptoms reported Skin: no symptoms reported Psychiatric/Neurological: No Symptoms Reported Past Eupiroj-Ubcfoo-Qzxlbq Hx Patient Social History Alcohol Use: Denies Use Number of Drinks Today: AA Alcohol Beverage of Choice: Beer Recreational Drug Use: No Smoking Status: Current Everyday Smoker Type Used: Cigarettes Recent Foreign Travel: No Contact w/Someone Who Travel: No Recent Hopitalizations: Yes ([place] TO L-LEG ABOUT A MONTH AGO) Immunizations Up To Date Tetanus Booster (TDap): Unknown PED Vaccines UTD: No Seasonal Allergies Seasonal Allergies: No Past Medical History Surgeries: Yes (L-BROKEN LEG [place]AN[place] PLACED) Respiratory: No Cardiac: No Neurological: No Reproductive Disorders: No Sexually Transmitted Disease: No HIV/AIDS: No Genitourinary: No Gastrointestinal: Yes Gastroesophageal Reflux, Pancreatitis Musculoskeletal: Yes (RT CLUB FOOT WHEN YOUNGER) Fractures Endocrine: No HEENT: No Cancer: No Did You Recieve Any Treatments: No Psychosocial: Yes ADD/ADHD, Anxiety Integumentary: No Blood Disorders: No Adverse Reaction/Blood Tranf: No Family Medical History Patient reports no known family medical history. No Pertinent Family Hx Physical Exam Vital Signs Vital Signs - First Documented 06/24/18 18:19 Temp 97.9 Pulse 84 Resp 18 B/P (MAP) 170/89 (116) Pulse Ox 98 Capillary Refill : Height, Weight, BMI Height: 5'5.00" Weight: 175lbs. 0.0oz. 79.142452nh; 29.1 BMI Method:Stated General Appearance: No Apparent Distress, WD/WN Eyes: Bilateral Eye Normal Inspection, Bilateral Eye PERRL, Bilateral Eye EOMI Neck: Full Range of Motion, Normal Inspection Respiratory: No Accessory Muscle Use, No Respiratory Distress Cardiovascular: Regular Rate, Rhythm, Normal Peripheral Pulses Gastrointestinal: Normal Bowel Sounds, Non Tender, Soft Extremity: Normal Capillary Refill, Normal Inspection Neurologic/Psychiatric: Alert, Oriented x3 Skin: Normal Color, Warm/Dry Progress/Results/Core Measures Suspected Sepsis SIRS Temperature: Pulse: Respiratory Rate: Laboratory Tests 06/24/18 18:38: White Blood Count 9.2 Blood Pressure / Mean: Laboratory Tests 06/24/18 18:38: Creatinine 0.97, Platelet Count 244 Results/Orders Lab Results Laboratory Tests Test 06/24/18 18:38 06/24/18 19:18 Range/Units White Blood Count 9.2 4.3-11.0 10^3/uL Red Blood Count 5.39 4.35-5.85 10^6/uL Hemoglobin 16.6 13.3-17.7 G/DL Hematocrit 44 40-54 % Mean Corpuscular Volume 82 80-99 FL Mean Corpuscular Hemoglobin 31 25-34 PG Mean Corpuscular Hemoglobin Concent 38 H 32-36 G/DL Red Cell Distribution Width 12.6 10.0-14.5 % Platelet Count 244 130-400 10^3/uL Mean Platelet Volume 10.3 7.4-10.4 FL Neutrophils (%) (Auto) 55 42-75 % Lymphocytes (%) (Auto) 37 12-44 % Monocytes (%) (Auto) 6 0-12 % Eosinophils (%) (Auto) 3 0-10 % Basophils (%) (Auto) 0 0-10 % Neutrophils # (Auto) 5.0 1.8-7.8 X 10^3 Lymphocytes # (Auto) 3.4 1.0-4.0 X 10^3 Monocytes # (Auto) 0.5 0.0-1.0 X 10^3 Eosinophils # (Auto) 0.2 0.0-0.3 10^3/uL Basophils # (Auto) 0.0 0.0-0.1 10^3/uL Sodium Level 137 135-145 MMOL/L Potassium Level 3.3 L 3.6-5.0 MMOL/L Chloride Level 103 98-107 MMOL/L Carbon Dioxide Level 19 L 21-32 MMOL/L Anion Gap 15 H 5-14 MMOL/L Blood Urea Nitrogen 17 7-18 MG/DL Creatinine 0.97 0.60-1.30 MG/DL Estimat Glomerular Filtration Rate > 60 BUN/Creatinine Ratio 18 Glucose Level 103 70-105 MG/DL Calcium Level 9.6 8.5-10.1 MG/DL Urine Color YELLOW Urine Clarity CLEAR Urine pH 5 5-9 Urine Specific [place] 1.020 1.016-1.022 Urine Protein 3+ H NEGATIVE Urine Glucose (UA) NEGATIVE NEGATIVE Urine Ketones NEGATIVE NEGATIVE Urine Nitrite NEGATIVE NEGATIVE Urine Bilirubin NEGATIVE NEGATIVE Urine Urobilinogen 1 NORMAL MG/DL Urine Leukocyte Esterase 1+ H NEGATIVE Urine RBC (Auto) 4+ H NEGATIVE Urine RBC 25-50 H /HPF Urine WBC 10-25 H /HPF Urine Squamous Epithelial Cells RARE /HPF Urine Renal Epithelial Cells NONE /HPF Urine Crystals NONE /LPF Urine Bacteria FEW H /HPF Urine Casts NONE /LPF Urine Mucus LARGE H /LPF Urine Culture Indicated YES My Orders Orders - AUDREY POTTER APRN Cbc With Automated Diff (06/24/18 18:27) Basic Metabolic Panel (06/24/18 18:27) Ua Culture If Indicated (06/24/18 18:27) Iv Heplock-Insert (Order) (06/24/18 18:27) Ct Abd/Pelvis Wo(Kidney Stone) (06/24/18 18:27) Ketorolac Injection (Toradol Injection) (06/24/18 18:30) Urine Culture (06/24/18 19:18) Levofloxacin Tablet (Levaquin Tablet) (06/24/18 20:00) Medications Given in ED Current Medications Medications Dose Ordered Sig/Imer Route Start Time Stop Time Status Last Admin Dose Admin Ketorolac Tromethamine 30 mg ONCE ONCE IVP 06/24/18 18:30 06/24/18 18:31 DC 06/24/18 18:39 30 MG Vital Signs/I&O 06/24/18 18:19 Temp 97.9 Pulse 84 Resp 18 B/P (MAP) 170/89 (116) Pulse Ox 98 Capillary Refill : Diagnostic Imaging Diagonstic Imaging: CT Comments NAME: CHANDNI BAGLEY [facility] REC#: [id number] PT STATUS: REG ER : 1990 PHYSICIAN: AUDREY POTTER APRN ADMIT DATE: 06/24/18/ER Draft Date of Exam:06/24/18 CT ABD/PELVIS WO(KIDNEY STONE) PROCEDURE: CT urinary tract, rule out kidney stone. TECHNIQUE: Multiple contiguous axial images were obtained through the abdomen and pelvis without the use of intravenous contrast. INDICATION: Left flank pain. Hematuria. COMPARISON: 06/19/2017 FINDINGS: Included portions of the lung bases are clear. CT abdomen: There is mild left-sided hydronephrosis. This is felt to be secondary to 4 mm calculus within the proximal left ureter (image 72, series 2). Multiple additional bilateral nonobstructive renal calculi are also seen bilaterally. There is no hydroureteronephrosis or other evidence of obstruction on the right. No focal renal parenchymal masses are seen on this noncontrast exam. The spleen, adrenal glands, pancreas, and liver have an unremarkable noncontrast CT appearance. There is no loculated fluid collection, free fluid, nor free air within the abdomen. No abnormal mesenteric or retroperitoneal adenopathy is seen. Small bowel loops are nondistended. Normal appendix is identified. Bony structures show no acute abnormalities. CT pelvis: Urinary bladder is unopacified. No calculi are seen within the urinary bladder. There is no loculated fluid collection, free fluid, nor free air within the pelvis. Bony structures show no acute abnormalities. IMPRESSION: 1. Mild left-sided hydronephrosis secondary to 4 mm calculus within the proximal left ureter. 2. Multiple additional nonobstructive bilateral renal calculi. Dictated on workstation # [id number] Dict: 06/24/18 1854 Trans: 06/24/181901 [facility] [id number] Interpreted by: EDUARDO DICKSON MD Electronically signed by: Departure Impression Primary Impression: Left ureteral stone Disposition: HOME, SELF-CARE Condition: Stable Departure-Patient Inst. Decision time for Depature: 19:01 Referrals: NO,LOCAL PHYSICIAN (PCP) Primary Care Physician JONI DOLAN MD Patient Instructions: Kidney Stones in Adults Add. Discharge Instructions: 1. Return to ER for any concerns 2. Strain all of your urine. You should be able to pass this stone on your own in the next few days. Pain medication as directed. Return to ER for any concerns. All discharge instructions reviewed with patient and/or family. Voiced understanding. Scripts Ciprofloxacin HCl (Cipro) 500 Mg Tablet 500 MG PO BID, #14 TAB Prov: AUDREY POTTER APRN 06/24/18 Ibuprofen (Ibuprofen) 800 Mg Tablet 800 MG PO Q8H PRN for PAIN, #30 TAB Prov: AUDREY POTTER APRN 06/24/18 Hydrocodone/Acetaminophen ([place] 5-325 Tablet) 1 Each Tablet 1 EACH PO Q4H PRN for PAIN-MODERATE MDD 10, #20 TAB Do not fill unless Flomax is also filled Prov: AUDREY POTTER APRN 06/24/18 Tamsulosin HCl (Flomax) 0.4 Mg Cap 0.4 MG PO DAILY, #20 CAP Prov: AUDREY POTTER APRN 11/25/18 Work/School Note: Work Release Form Date Seen in the Emergency Department: Jun 24, 2018 Return to Work: Jun 27, 2018 AUDREY POTTER APRN Jun 24, 2018 18:32
[2018-06-24 18:45] LABS: BASOPHILS % (AUTO) 0 % (0-10); EOSINOPHILS # (AUTO) 0.2 10^3/uL (0.0-0.3); EOSINOPHILS % (AUTO) 3 % (0-10); HEMATOCRIT 44 % (40-54); HEMOGLOBIN 16.6 G/DL (13.3-17.7); LYMPHOCYTES # (AUTO) 3.4 X 10^3 (1.0-4.0); LYMPHOCYTES % (AUTO) 37 % (12-44); MEAN CORPUSCULAR HEMOGLOBIN 31 PG (25-34); MEAN CORPUSCULAR HGB CONC 38 G/DL (32-36); MEAN CORPUSCULAR VOLUME 82 FL (80-99); MEAN PLATELET VOLUME 10.3 FL (7.4-10.4); MONOCYTES # (AUTO) 0.5 X 10^3 (0.0-1.0); MONOCYTES % (AUTO) 6 % (0-12); NEUTROPHILS % (AUTO) 55 % (42-75); PLATELET COUNT 244 10^3/uL (130-400); RED BLOOD COUNT 5.39 10^6/uL (4.35-5.85); RED CELL DISTRIBUTION WIDTH 12.6 % (10.0-14.5); WHITE BLOOD COUNT 9.2 10^3/uL (4.3-11.0)
[2018-06-24 19:00] LABS: BUN/CREATININE RATIO 18; CALCIUM 9.6 MG/DL (8.5-10.1); CARBON DIOXIDE 19 MMOL/L (21-32); CHLORIDE 103 MMOL/L (98-107); CREATININE SERUM 0.97 MG/DL (0.60-1.30); GFR ESTIMATED > 60; GLUCOSE 103 MG/DL (70-105); POTASSIUM 3.3 MMOL/L (3.6-5.0); SODIUM 137 MMOL/L (135-145)
--- NOTE | 2018-06-24 19:02 | Diagnostic Imaging Report ---
PROCEDURE: CT urinary tract, rule out kidney stone. TECHNIQUE: Multiple contiguous axial images were obtained through the abdomen and pelvis without the use of intravenous contrast. INDICATION: Left flank pain. Hematuria. COMPARISON: 06/19/2017 FINDINGS: Included portions of the lung bases are clear. CT abdomen: There is mild left-sided hydronephrosis. This is felt to be secondary to 4 mm calculus within the proximal left ureter (image 72, series 2). Multiple additional bilateral nonobstructive renal calculi are also seen bilaterally. There is no hydroureteronephrosis or other evidence of obstruction on the right. No focal renal parenchymal masses are seen on this noncontrast exam. The spleen, adrenal glands, pancreas, and liver have an unremarkable noncontrast CT appearance. There is no loculated fluid collection, free fluid, nor free air within the abdomen. No abnormal mesenteric or retroperitoneal adenopathy is seen. Small bowel loops are nondistended. Normal appendix is identified. Bony structures show no acute abnormalities. CT pelvis: Urinary bladder is unopacified. No calculi are seen within the urinary bladder. There is no loculated fluid collection, free fluid, nor free air within the pelvis. Bony structures show no acute abnormalities. IMPRESSION: 1. Mild left-sided hydronephrosis secondary to 4 mm calculus within the proximal left ureter. 2. Multiple additional nonobstructive bilateral renal calculi. Dictated by: Dictated on workstation # [id number]
[2018-06-24] MEDS ORDERED: HYDR-4226 PO (19:05)
[2018-06-24] MEDS ORDERED: IBUP-1780 PO (19:05)
[2018-06-24] MEDS ORDERED: TAMS0.4C98 PO (19:05)
[2018-06-24 19:25] LABS: BILIRUBIN,URINE NEGATIVE (NEGATIVE); CLARITY,URINE CLEAR; COLOR,URINE YELLOW; GLUCOSE, URINE (UA) NEGATIVE (NEGATIVE); KETONES,URINE NEGATIVE (NEGATIVE); LEUKOCYTE ESTERASE ,URINE 1+ (NEGATIVE); NITRITE,URINE NEGATIVE (NEGATIVE); PH,URINE 5 (5-9); PROTEIN,URINE 3+ (NEGATIVE); UROBILINOGEN,URINE 1 MG/DL (NORMAL)
[2018-06-24 19:45] LABS: BACTERIA,URINE FEW /HPF; RBC,URINE 25-50 /HPF; SQUAMOUS EPITHELIAL CELL,UR RARE /HPF
[2018-06-24] MEDS ORDERED: CIPR-225 PO (19:52)
[2018-06-24] MEDS ORDERED: LEVOFLOXACIN 500 MG TAB (LEVAQUIN) PO ONE (20:00)
[2018-06-24 20:15] VITALS: BP 140/72
[2018-06-24] MEDS ORDERED: RX-HYDROCODONE/APAP 5/325 MG #4 TAB PK PO PRN (20:15)
== END 2018-06-24 20:17 | disposition home or self-care (01) ==
LOC: EDUNIT# 18:14 → ER 18:17
DX: N13.2 Hydronephrosis with renal and ureteral calculous obstruction (principal); K21.9 Gastro-esophageal reflux disease without esophagitis; F90.9 Attention-deficit hyperactivity disorder, unspecified type; F41.9 Anxiety disorder, unspecified; F17.210 Nicotine dependence, cigarettes, uncomplicated; Z88.5 Allergy status to narcotic agent; Z87.19 Personal history of other diseases of the digestive system; Z88.8 Allergy status to other drugs, medicaments and biological substances
CPT/HCPCS: 36415; 74176; 80048; 81000; 85025; 87088; 96374

== ENCOUNTER 2018-08-21 11:22 | Emergency (ER) | payer SELFPAY ==
[~2018-08-21] VITALS: Ht 165.1 cm; Wt 81.6 kg
[~2018-08-21 11:22] MED LIST changes: +CIPR-225 PO; +HYDR-4226 PO; +IBUP-1780 PO; +TAMS0.4C98 PO
[2018-08-21] MEDS ORDERED: NS IV 1000 ML 1,000 ML IV SCH (11:41)
[2018-08-21 11:46] LABS: BASOPHILS % (AUTO) 0 % (0-10); EOSINOPHILS # (AUTO) 0.1 10^3/uL (0.0-0.3); EOSINOPHILS % (AUTO) 1 % (0-10); HEMATOCRIT 46 % (40-54); LYMPHOCYTES # (AUTO) 2.3 X 10^3 (1.0-4.0); LYMPHOCYTES % (AUTO) 23 % (12-44); MEAN CORPUSCULAR HEMOGLOBIN 30 PG (25-34); MEAN CORPUSCULAR HGB CONC 37 G/DL (32-36); MEAN CORPUSCULAR VOLUME 83 FL (80-99); MEAN PLATELET VOLUME 10.5 FL (7.4-10.4); MONOCYTES # (AUTO) 0.6 X 10^3 (0.0-1.0); MONOCYTES % (AUTO) 6 % (0-12); NEUTROPHILS % (AUTO) 70 % (42-75); PLATELET COUNT 244 10^3/uL (130-400); RED BLOOD COUNT 5.61 10^6/uL (4.35-5.85); WHITE BLOOD COUNT 10.1 10^3/uL (4.3-11.0)
[2018-08-21] MEDS ORDERED: KETOROLAC 30 MG/ML VIAL IVP STA (11:52)
[2018-08-21] MEDS ORDERED: ONDANSETRON 4 MG/2 ML (SDV) Z0FRAN IVP ONE (12:00)
[2018-08-21 12:05] LABS: ALANINE AMINOTRANSFERASE 20 U/L (0-55); ALBUMIN 4.6 GM/DL (3.2-4.5); ALKALINE PHOSPHATASE 97 U/L (40-136); AMYLASE 24 U/L (25-125); BILIRUBIN,TOTAL 0.4 MG/DL (0.1-1.0); BUN/CREATININE RATIO 14; CALCIUM 10.2 MG/DL (8.5-10.1); CARBON DIOXIDE 25 MMOL/L (21-32); CHLORIDE 106 MMOL/L (98-107); CREATININE SERUM 1.03 MG/DL (0.60-1.30); GFR ESTIMATED > 60; GLUCOSE 137 MG/DL (70-105); LIPASE 26 U/L (8-78); POTASSIUM 3.9 MMOL/L (3.6-5.0); SODIUM 140 MMOL/L (135-145); TOTAL PROTEIN 7.2 GM/DL (6.4-8.2)
[2018-08-21] MEDS ORDERED: FAMOTIDINE 20MG/2ML IV (PEPCID) IV STA (12:13)
--- NOTE | 2018-08-21 12:17 | ED Abdominal Pain ---
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 He is on omeprazole and a men's vitamin daily. He denies any vomiting but did begin having diarrhea 2 days ago, approximately 3-4 episodes per day. He had Dr. Lopez this morning, and feels his symptoms have worsened since then. He has a significant history of recurrent pancreatitis and kidney stones. He reports no alcohol intake for the last year, he does smoke one pack of cigarettes daily and denies any illicit drug use. Timing/Duration: 2-3 Days Location: [facility] Radiation: No Radiation Associated Symptoms: Denies Symptoms Allergies and Home Medications Allergies Coded Allergies: cefpodoxime (Verified Allergy, Unknown, 10/11/14) Told allergic when he was a child. Reaction unknown. codeine (Verified Adverse Reaction, Mild, NAUSEA/VOMITING, 06/21/17) Home Medications Omeprazole 40 Mg Capsule.dr, 40 MG PO DAILY, (Reported) Ondansetron HCl 8 Mg Tablet, 8 MG PO Q8H PRN for NAUSEA/VOMITING-1ST LINE Prescribed by: YAO BOWSER on 08/21/18 1350 Tramadol HCl 50 Mg Tablet, 50 MG PO Q8H PRN for PAIN-MODERATE TO SEVERE Prescribed by: YAO BOWSER on 08/21/18 1350 Patient Home Medication List Home Medication List Reviewed: Yes Review of Systems Review of Systems Constitutional: no symptoms reported, see HPI Gastrointestinal: See HPI, Abdominal Pain, Diarrhea, Nausea All Other Systems Reviewed Negative Unless Noted: Yes Past Slaelsr-Gtvwau-Bvxlpc Hx Patient Social History Alcohol Use: Past History Alcohol Beverage of Choice: Beer Recreational Drug Use: No Smoking Status: Current Everyday Smoker Type Used: Cigarettes Recent Foreign Travel: No Contact w/Someone Who Travel: No Recent Infectious Disease Expo: No Recent Hopitalizations: No (URBANO PLACE TO L-LEG ABOUT A MONTH AGO) Immunizations Up To Date Tetanus Booster (TDap): Unknown PED Vaccines UTD: No Seasonal Allergies Seasonal Allergies: No Past Medical History Surgeries: Yes (L-BROKEN LEG URBANO PLACED) Respiratory: No Cardiac: No Neurological: No Reproductive Disorders: No Sexually Transmitted Disease: No HIV/AIDS: No Genitourinary: Yes Kidney Stones Gastrointestinal: Yes Gastroesophageal Reflux, Pancreatitis Musculoskeletal: Yes (RT CLUB FOOT WHEN YOUNGER) Fractures Endocrine: No HEENT: No Cancer: No Did You Recieve Any Treatments: No Psychosocial: Yes ADD/ADHD, Anxiety Integumentary: No Blood Disorders: No Adverse Reaction/Blood Tranf: No Family Medical History Patient reports no known family medical history. No Pertinent Family Hx Physical Exam Vital Signs Vital Signs - First Documented 08/21/18 11:25 Temp 98.2 Pulse 108 Resp 18 B/P (MAP) 162/95 (117) Pulse Ox 99 Capillary Refill : Less Than 3 Seconds Height/Weight/BMI Height: 5'5.00" Weight: 180lbs. 0.0oz. 81.359451ax; 29.1 BMI Method:Stated General Appearance: WD/WN, no apparent distress HEENT: PERRL/EOMI, normal ENT inspection, TMs normal, pharynx normal Neck: non-tender, full range of motion, supple, normal inspection Respiratory: chest non-tender, lungs clear, normal breath sounds Cardiovascular: normal peripheral pulses, regular rate, rhythm, no murmur Gastrointestinal: normal bowel sounds, non tender, soft; No distended, No guarding, No rebound, No tenderness, No mass, No spleenomegaly Back: normal inspection, no CVA tenderness, no vertebral tenderness Neurologic/Psychiatric: no motor/sensory deficits, alert, normal mood/affect, oriented x 3 Skin: normal color, warm/dry Lymphatic: no adenopathy Progress/Results/Core Measures Results/Orders Lab Results Laboratory Tests Test 08/21/18 11:30 08/21/18 12:47 Range/Units White Blood Count 10.1 4.3-11.0 10^3/uL Red Blood Count 5.61 4.35-5.85 10^6/uL Hemoglobin 17.0 13.3-17.7 G/DL Hematocrit 46 40-54 % Mean Corpuscular Volume 83 80-99 FL Mean Corpuscular Hemoglobin 30 25-34 PG Mean Corpuscular Hemoglobin Concent 37 H 32-36 G/DL Red Cell Distribution Width 13.0 10.0-14.5 % Platelet Count 244 130-400 10^3/uL Mean Platelet Volume 10.5 H 7.4-10.4 FL Neutrophils (%) (Auto) 70 42-75 % Lymphocytes (%) (Auto) 23 12-44 % Monocytes (%) (Auto) 6 0-12 % Eosinophils (%) (Auto) 1 0-10 % Basophils (%) (Auto) 0 0-10 % Neutrophils # (Auto) 7.0 1.8-7.8 X 10^3 Lymphocytes # (Auto) 2.3 1.0-4.0 X 10^3 Monocytes # (Auto) 0.6 0.0-1.0 X 10^3 Eosinophils # (Auto) 0.1 0.0-0.3 10^3/uL Basophils # (Auto) 0.0 0.0-0.1 10^3/uL Sodium Level 140 135-145 MMOL/L Potassium Level 3.9 3.6-5.0 MMOL/L Chloride Level 106 98-107 MMOL/L Carbon Dioxide Level 25 21-32 MMOL/L Anion Gap 9 5-14 MMOL/L Blood Urea Nitrogen 14 7-18 MG/DL Creatinine 1.03 0.60-1.30 MG/DL Estimat Glomerular Filtration Rate > 60 BUN/Creatinine Ratio 14 Glucose Level 137 H 70-105 MG/DL Calcium Level 10.2 H 8.5-10.1 MG/DL Corrected Calcium 8.5-10.1 MG/DL Total Bilirubin 0.4 0.1-1.0 MG/DL Aspartate Amino Transf (AST/SGOT) 18 5-34 U/L Alanine Aminotransferase (ALT/SGPT) 20 0-55 U/L Alkaline Phosphatase 97 40-136 U/L Total Protein 7.2 6.4-8.2 GM/DL Albumin 4.6 H 3.2-4.5 GM/DL Amylase Level 24 L 25-125 U/L Lipase 26 8-78 U/L Serum Alcohol < 10 <10 MG/DL Urine Color YELLOW Urine Clarity SLIGHTLY CLOUDY Urine pH 7 5-9 Urine Specific [place] 1.010 L 1.016-1.022 Urine Protein NEGATIVE NEGATIVE Urine Glucose (UA) NEGATIVE NEGATIVE Urine Ketones NEGATIVE NEGATIVE Urine Nitrite NEGATIVE NEGATIVE Urine Bilirubin NEGATIVE NEGATIVE Urine Urobilinogen NORMAL NORMAL MG/DL Urine Leukocyte Esterase NEGATIVE NEGATIVE Urine RBC (Auto) NEGATIVE NEGATIVE Urine RBC NONE /HPF Urine WBC RARE /HPF Urine Squamous Epithelial Cells RARE /HPF Urine Crystals NONE /LPF Urine Bacteria NEGATIVE /HPF Urine Casts NONE /LPF Urine Mucus NEGATIVE /LPF Urine Culture Indicated NO Urine Opiates Screen POSITIVE H NEGATIVE Urine Oxycodone Screen NEGATIVE NEGATIVE Urine Methadone Screen NEGATIVE NEGATIVE Urine Propoxyphene Screen NEGATIVE NEGATIVE Urine Barbiturates Screen NEGATIVE NEGATIVE Ur Tricyclic Antidepressants Screen NEGATIVE NEGATIVE Urine Phencyclidine Screen NEGATIVE NEGATIVE Urine Amphetamines Screen NEGATIVE NEGATIVE Urine Methamphetamines Screen NEGATIVE NEGATIVE Urine Benzodiazepines Screen NEGATIVE NEGATIVE Urine Cocaine Screen NEGATIVE NEGATIVE Urine Cannabinoids Screen NEGATIVE NEGATIVE My Orders Orders - MAGUE,YAO 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 Amylase (08/21/18 11:41) Cbc With Automated Diff (08/21/18 11:41) Comprehensive Metabolic Panel (08/21/18 11:41) Lipase (08/21/18 11:41) Ua Culture If Indicated (08/21/18 11:41) Saline Lock/Iv-Start (08/21/18 11:41) Ns Iv 1000 Ml (Sodium Chloride 0.9%) (08/21/18 11:41) Ondansetron Injection (Zofran Injectio (08/21/18 12:00) Alcohol (08/21/18 11:52) Drug Screen Stat (Urine) (08/21/18 11:52) Ketorolac Injection (Toradol Injection) (08/21/18 11:52) Abdomen/Kub 1view (08/21/18 12:13) Famotidine Injection (Pepcid Injection) (08/21/18 12:13) Medications Given in ED Current Medications Medications Dose Ordered Sig/Imer Route Start Time Stop Time Status Last Admin Dose Admin Ondansetron HCl 4 mg ONCE ONCE IVP 08/21/18 12:00 08/21/18 12:01 DC 08/21/18 12:00 4 MG Vital Signs/I&O 08/21/18 08/21/18 11:25 13:55 Temp 98.2 98.2 Pulse 108 108 Resp 18 18 B/P (MAP) 162/95 (117) 162/95 (117) Pulse Ox 99 99 Blood Pressure Mean: 117 Progress Progress Note : Time: 11:45 Progress Note Patient seen and evaluated, will obtain labs, Zofran 4 mg IV for nausea and normal saline 1 L IV. 1215 nausea has improved, will give Toradol 30 mg IV and Pepcid 20 mg IV. Will obtain KUB. 1300 patient reports slight improvement in his symptoms. He has had no further nausea and no diarrhea since admission. Reviewed lab results with patient, reassurance that he does not have pancreatitis at this time. Will treat as viral gastroenteritis. Encouraged he establish care with primary care provider. Discharge instructions and return precautions reviewed. Departure Impression Primary Impression: Viral gastroenteritis Additional Impressions: Diarrhea Qualified Codes: R19.7 - Diarrhea, unspecified Left upper quadrant abdominal pain of unknown etiology Disposition: HOME, SELF-CARE Condition: Improved Departure-Patient Inst. Decision time for Depature: 13:00 Referrals: NO,LOCAL PHYSICIAN (PCP/Family) Primary Care Physician Patient Instructions: Viral Gastroenteritis, Adult (DC) Add. Discharge Instructions: Take Zofran every 6-8 hours as needed for nausea and vomiting. Increase fluid intake, 16 oz of water every 2 hours while awake. You may take tramadol every 6-8 hours as needed for pain. You may also alternate between Tylenol 650 mg and ibuprofen 600 mg every 4 hours. You can use an qlza-jvn-pbklkie antidiarrheal as needed. Clear liquid diet for the next 6-8 hours then bland diet as tolerated. Follow-up with Dr. Zavala at [facility] if symptoms are not improving or worsen. Return to emergency department if symptoms worsen, fever greater than 101 not relieved by Tylenol and ibuprofen, new problems or concerns. All discharge instructions reviewed with patient and/or family. Voiced understanding. Scripts Ondansetron HCl (Zofran) 8 Mg Tablet 8 MG PO Q8H PRN for NAUSEA/VOMITING-1ST LINE, #12 TAB 0 Refills Prov: YAO BOWSER 08/21/18 Tramadol HCl (Tramadol HCl) 50 Mg Tablet 50 MG PO Q8H PRN for PAIN-MODERATE TO SEVERE, #20 TAB 0 Refills Prov: YAO BOWSER 08/21/18 Copy Copies To 1: FABRICIO ZAVALA MD, AMY ARNP Aug 21, 2018 12:17
--- NOTE | 2018-08-21 12:41 | Diagnostic Imaging Report ---
PATIENT HISTORY: Abdominal pain, worsening. TECHNIQUE: Frontal view of the abdomen. COMPARISON: CT from 06/24/2018. FINDINGS: No dilated loops of small bowel are seen. There is a tsprm-mj-[id number] amount of stool in the colon. No large collection of free air is seen on this supine film. Phlebolith is noted in the pelvis. IMPRESSION: No evidence of bowel obstruction or large collection of free air. Dictated by: Dictated on workstation # [id number]
[2018-08-21 12:57] LABS: BILIRUBIN,URINE NEGATIVE (NEGATIVE); CLARITY,URINE SLIGHTLY CLOUDY; COLOR,URINE YELLOW; GLUCOSE, URINE (UA) NEGATIVE (NEGATIVE); KETONES,URINE NEGATIVE (NEGATIVE); LEUKOCYTE ESTERASE ,URINE NEGATIVE (NEGATIVE); NITRITE,URINE NEGATIVE (NEGATIVE); PH,URINE 7 (5-9); PROTEIN,URINE NEGATIVE (NEGATIVE); UROBILINOGEN,URINE NORMAL (NORMAL)
[2018-08-21 13:04] LABS: BACTERIA,URINE NEGATIVE /HPF; SQUAMOUS EPITHELIAL CELL,UR RARE /HPF; WBC,URINE RARE /HPF
[2018-08-21 13:10] LABS: AMPHETAMINE SCREEN, URINE NEGATIVE (NEGATIVE); BARBITURATE SCREEN URINE NEGATIVE (NEGATIVE); BENZODIAZEPINES SCREEN URINE NEGATIVE (NEGATIVE); CANNABINOID SCREEN, URINE NEGATIVE (NEGATIVE); COCAINE SCREEN URINE NEGATIVE (NEGATIVE); METHADONE STAT NEGATIVE (NEGATIVE); METHAMPHETAMINE SCREEN URINE S NEGATIVE (NEGATIVE); OPIATE SCREEN URINE POSITIVE (NEGATIVE); OXYCODONE STAT NEGATIVE (NEGATIVE); PROPOXYPHENE STAT NEGATIVE (NEGATIVE); TRICYCLIC ANTIDEPRESSANTS SCRE NEGATIVE (NEGATIVE)
[2018-08-21] MEDS ORDERED: TRAM50TA2 PO (13:50)
[2018-08-21] MEDS ORDERED: ONDA8TAB6 PO (13:50)
[2018-08-21 13:55] VITALS: BP 162/95
== END 2018-08-21 13:55 | disposition home or self-care (01) ==
LOC: ER 11:22 → EDUNIT# 11:22 → ER 13:55
DX: A08.4 Viral intestinal infection, unspecified (principal); K21.9 Gastro-esophageal reflux disease without esophagitis; F98.8 Other specified behavioral and emotional disorders with onset usually occurring in childhood and adolescence; F90.9 Attention-deficit hyperactivity disorder, unspecified type; F41.9 Anxiety disorder, unspecified; F17.210 Nicotine dependence, cigarettes, uncomplicated; Z98.890 Other specified postprocedural states; Z88.8 Allergy status to other drugs, medicaments and biological substances; Z88.5 Allergy status to narcotic agent; Z87.19 Personal history of other diseases of the digestive system; Z87.442 Personal history of urinary calculi
CPT/HCPCS: 36415; 74018; 80053; 80306; 80320; 81000; 82150; 83690; 85025

== ENCOUNTER 2018-10-12 15:31 | Emergency (ER) | payer SELFPAY ==
[~2018-10-12] VITALS: Ht 165.1 cm; Wt 81.6 kg
[~2018-10-12 15:31] MED LIST changes: +ONDA8TAB6 PO; +TRAM50TA2 PO
--- OUTSIDE RECORDS SUMMARY | 2018-10-12 15:37 | XMS REPORT ---
Author Author FABRICIO ZAVALA Organization [facility] Address [address] [place] [address] Care Team Providers Care Director Appointment Name Role Phone FABRICIO ZAVALA Unavailable PROBLEMS Type Condition ICD9-CM Code DEU01-IT Code Onset Dates Condition Status SNOMED Code Problem Chronic pancreatitis, unspecified pancreatitis type K86.1 Active 293639108 Problem Chronic gastritis without bleeding, unspecified gastritis type K29.50 Active 3466362 Problem Social anxiety disorder F40.10 Active 54288187 Problem History of alcohol abuse Z87.898 Active 428299730 Problem History of pancreatitis Z87.19 Active 42039840531191 Problem GERD without esophagitis K21.9 Active 705880469 ALLERGIES No Information ENCOUNTERS Encounter Location Date Diagnosis [place] [address] [id number] [place] [address]757 Aug, Social anxiety disorder F40.10 [place] [id number] [place] [address] 69380- 7698 Jul, [place] [id number] [place] [address] 63771- 2975 Jul, [place] [id number] [place] [address] 21090- 2353 Jun, [place] [id number] [place] [address] 04621- 9707 Jun, Social anxiety disorder F40.10 ; Chronic gastritis without bleeding, unspecified gastritis type K29.50 ; Chronic pancreatitis, unspecified pancreatitis type K86.1 and History of alcohol abuse Z87.898 [place] [id number] [place] [address]- [address] May, [facility] [address] [id number] May, [facility] [address] [facility] [id number] [id number] May, History of pancreatitis Z87.19 ; GERD without esophagitis K21.9 ; Social anxiety disorder F40.10 and History of alcohol abuse Z87.898 [facility] [address] [facility] [id number] [id number] Apr, Essential hypertension I10 and Palpitation R00.2 [place] [address] [place] [address] [id number] [address] Apr, [facility] [address], [place] [address] Apr, IMMUNIZATIONS No Known Immunizations SOCIAL HISTORY Never Assessed REASON FOR VISIT Requests return call PLAN OF CARE VITAL SIGNS MEDICATIONS Medication Instructions Dosage Frequency Start Date End Date Duration Status Xanax 0.5 MG Orally once daily as needed for severe anxiety 1 tablet 07 days Active RESULTS No Results PROCEDURES No Known procedures INSTRUCTIONS MEDICATIONS ADMINISTERED No Known Medications MEDICAL (GENERAL) HISTORY Type Description Date Medical History anxiety Medical History acid reflux Medical History chronic pancreatitis Surgical History Right tib/fib fracture repair 07/16 Hospitalization History pancreatitis 05/2017
--- OUTSIDE RECORDS SUMMARY | 2018-10-12 15:37 | XMS REPORT ---
Author Author FABRICIO ZAVALA Organization [facility] Address [address] 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 Name Role Phone FABRICIO ZAVALA Unavailable PROBLEMS Type Condition ICD9-CM Code OOH64-BP Code Onset Dates Condition Status SNOMED Code Problem Chronic pancreatitis, unspecified pancreatitis type K86.1 Active 397256263 Problem Chronic gastritis without bleeding, unspecified gastritis type K29.50 Active 9213174 Problem Social anxiety disorder F40.10 Active 21800991 Problem History of alcohol abuse Z87.898 Active 405443383 Problem History of pancreatitis Z87.19 Active 03953393547722 Problem GERD without esophagitis K21.9 Active 677477841 ALLERGIES Substance Reaction Event Type Date Status Codeine Sulfate nausea Drug Allergy Aug, Active ENCOUNTERS Encounter Location Date Diagnosis [place] [id number] [place] [address]- 0427 Aug, Social anxiety disorder F40.10 [facility] [id number] [place] [address] 09883- 3070 Jul, [place] [address] [place] [address]- 8423 Jul, [facility] [id number] [place] [address] 83649- 4037 Jun, [facility] [id number] [place] [address] 17610- 4024 Jun, Social anxiety disorder F40.10 ; Chronic gastritis without bleeding, unspecified gastritis type K29.50 ; Chronic pancreatitis, unspecified pancreatitis type K86.1 and History of alcohol abuse Z87.898 [facility] [address] [place] [address] 15559- 9576 May, [facility] [address] [place] [address] [id number] [place] [id number] May, [facility] [address] [facility] [id number] [phone] May, History of pancreatitis Z87.19 ; GERD without esophagitis K21.9 ; Social anxiety disorder F40.10 and History of alcohol abuse Z87.898 [facility] [address] [facility] [id number] [place] [id number] Apr, Essential hypertension I10 and Palpitation R00.2 [facility] [address] [facility] [id number] [id number] Apr, [facility] [address] [facility] [id number] [phone] Apr, IMMUNIZATIONS No Known Immunizations SOCIAL HISTORY Never Assessed REASON FOR VISIT Anxiety - Raffi RN PLAN OF CARE Activity Details Follow Up we will call /, 2 Months Reason: VITAL SIGNS Height 65 in 2017-09-12 Weight 160.1 lbs 2017-09-12 Temperature 98.2 degrees Fahrenheit 2017-09-12 Heart Rate 84 bpm 2017-09-12 Respiratory Rate 20 2017-09-12 BMI 26.64 kg/m2 2017-09-12 Blood pressure systolic 128 mmHg 2017-09-12 Blood pressure diastolic 72 mmHg 2017-09-12 MEDICATIONS Medication Instructions Dosage Frequency Start Date End Date Duration Status Venlafaxine HCl 25 MG Orally Once a day 1 tablet with food 24h Aug, 30 day(s) Active Hydrocodone-Acetaminophen 5-325 MG Orally every 4 hrs 1 tablet as needed 4h Active Omeprazole 20 MG Orally Once a day 1 capsule 24h May, Active RESULTS No Results PROCEDURES No Known procedures INSTRUCTIONS MEDICATIONS ADMINISTERED No Known Medications MEDICAL (GENERAL) HISTORY Type Description Date Medical History anxiety Medical History acid reflux Medical History chronic pancreatitis Surgical History Right tib/fib fracture repair 07/16 Hospitalization History pancreatitis 05/2017
--- OUTSIDE RECORDS SUMMARY | 2018-10-12 15:37 | XMS REPORT ---
Author Author FABRICIO ZAVALA Organization [facility] Address [address] [place] [address] Care Team Providers Care Cardiology Nurse Practitioner Name Role Phone FABRICIO ZAVALA Unavailable PROBLEMS Type Condition ICD9-CM Code XCR87-HN Code Onset Dates Condition Status SNOMED Code Problem Chronic pancreatitis, unspecified pancreatitis type K86.1 Active 378208710 Problem Chronic gastritis without bleeding, unspecified gastritis type K29.50 Active 7839269 Problem Social anxiety disorder F40.10 Active 07339431 Problem History of alcohol abuse Z87.898 Active 283833461 Problem History of pancreatitis Z87.19 Active 25130522759590 Problem GERD without esophagitis K21.9 Active 566324702 ALLERGIES Substance Reaction Event Type Date Status Codeine Sulfate nausea Drug Allergy Jun, Active ENCOUNTERS Encounter Location Date Diagnosis [place] [address] [address] [id number] [place] [address] 66842- 8541 Aug, Social anxiety disorder F40.10 [facility] [id number] [place] [address] 84569- 5177 Jul, [place] [address] [place] [address] [id number] [place] [address] 42677- 8029 Jul, [facility] [id number] [place] [address] 12384- 3106 Jun, [place] [address] [address] [id number] [place] [address] 77952- 0353 Jun, Social anxiety disorder F40.10 ; Chronic gastritis without bleeding, unspecified gastritis type K29.50 ; Chronic pancreatitis, unspecified pancreatitis type K86.1 and History of alcohol abuse Z87.898 [facility] [id number] [place] [address] 22274- 2180 May, [facility] [address] [place] [id number] [place] [id number] May, [facility] [address] [facility] [id number] [id number] May, History of pancreatitis Z87.19 ; GERD without esophagitis K21.9 ; Social anxiety disorder F40.10 and History of alcohol abuse Z87.898 [facility] [address] [facility] [id number] [id number] Apr, Essential hypertension I10 and Palpitation R00.2 [facility] [address] [facility] [id number] [address] Apr, [facility] [address] [facility] [id number], [place] [address] Apr, IMMUNIZATIONS No Known Immunizations SOCIAL HISTORY Never Assessed REASON FOR VISIT Transition of Care/[facility] Follow up ----GAURIennettLYNDSEY PLAN OF CARE Activity Details Follow Up 2 Months Reason: VITAL SIGNS Height 65 in 2017-07-03 Weight 182 lbs 2017-07-03 Temperature 99.4 degrees Fahrenheit 2017-07-03 Heart Rate 100 bpm 2017-07-03 Respiratory Rate 20 2017-07-03 BMI 30.28 kg/m2 2017-07-03 Blood pressure systolic 138 mmHg 2017-07-03 Blood pressure diastolic 72 mmHg 2017-07-03 MEDICATIONS Medication Instructions Dosage Frequency Start Date End Date Duration Status Omeprazole 40 mg Orally Once a day 1 capsule 24h May, Active Paxil 20 mg Orally Once a day 1 tablet in the morning 24h Jun, 30 day(s) Active Xanax 1 MG Orally Twice a day 1 tablet 12h Active Pantoprazole Sodium 40 MG Orally Once a day 1 tablet 24h Not- Taking RESULTS No Results PROCEDURES Procedure Date Ordered Result Body Site COMPLETE CBC W/AUTO DIFF WBC Jul 03, 2017 COMPREHEN METABOLIC PANEL Jul 03, 2017 ASSAY OF LIPASE Jul 03, 2017 ASSAY OF AMYLASE Jul 03, 2017 VENIPUNCT, ROUTINE* Jul 03, 2017 LIPID PANEL Jul 03, 2017 INSTRUCTIONS MEDICATIONS ADMINISTERED No Known Medications MEDICAL (GENERAL) HISTORY Type Description Date Medical History anxiety Medical History acid reflux Medical History chronic pancreatitis Surgical History Right tib/fib fracture repair 07/16 Hospitalization History pancreatitis 05/2017
--- OUTSIDE RECORDS SUMMARY | 2018-10-12 15:37 | XMS REPORT ---
Author Author FABRICIO ZAVALA Organization [facility] Address [address] [place] [address] Care Team Providers Care Emergency Response Technician Name Role Phone FABRICIO ZAVALA Unavailable PROBLEMS Type Condition ICD9-CM Code INU34-PA Code Onset Dates Condition Status SNOMED Code Problem Chronic pancreatitis, unspecified pancreatitis type K86.1 Active 817109842 Problem Chronic gastritis without bleeding, unspecified gastritis type K29.50 Active 1391636 Problem Social anxiety disorder F40.10 Active 65748392 Problem History of alcohol abuse Z87.898 Active 791820156 Problem History of pancreatitis Z87.19 Active 23830908182792 Problem GERD without esophagitis K21.9 Active 480769801 ALLERGIES No Information ENCOUNTERS Encounter Location Date Diagnosis [place] [address] [id number] [place] [address] 33791- 2846 Aug, Social anxiety disorder F40.10 [place] [id number] [place] [address] 34736- 0468 Jul, [place] [id number] [place] [address] 16558- 9777 Jul, [place] [id number] [place] [address] 45472- 5940 Jun, [place] [id number] [place] [address] 81392- 5579 Jun, Social anxiety disorder F40.10 ; Chronic gastritis without bleeding, unspecified gastritis type K29.50 ; Chronic pancreatitis, unspecified pancreatitis type K86.1 and History of alcohol abuse Z87.898 [place] [id number] [place] [address] 39911- 0607 May, [facility] [address] [id number] May, [facility] [address] [facility] [id number] [id number] May, History of pancreatitis Z87.19 ; GERD without esophagitis K21.9 ; Social anxiety disorder F40.10 and History of alcohol abuse Z87.898 [facility] [address] [facility] [id number] [id number] Apr, Essential hypertension I10 and Palpitation R00.2 [place] [address] [place] [id number] [address] Apr, [facility] [address] [facility] [id number] [place] [address] Apr, IMMUNIZATIONS No Known Immunizations SOCIAL HISTORY Never Assessed REASON FOR VISIT Med list update PLAN OF CARE VITAL SIGNS MEDICATIONS Medication Instructions Dosage Frequency Start Date End Date Duration Status Paxil 20 mg Orally Once a day 1 tablet in the morning 24h Jun, 30 day(s) Active Omeprazole 40 mg Orally Once a day 1 capsule 24h May, Active RESULTS No Results PROCEDURES No Known procedures INSTRUCTIONS MEDICATIONS ADMINISTERED No Known Medications MEDICAL (GENERAL) HISTORY Type Description Date Medical History anxiety Medical History acid reflux Medical History chronic pancreatitis Surgical History Right tib/fib fracture repair 07/16 Hospitalization History pancreatitis 05/2017
--- OUTSIDE RECORDS SUMMARY | 2018-10-12 15:37 | XMS REPORT ---
Author Author FABRICIO ZAVALA Organization [facility] Address [address] 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 Role Phone FABRICIO ZAVALA Unavailable PROBLEMS Type Condition ICD9-CM Code SFO01-XY Code Onset Dates Condition Status SNOMED Code Problem Chronic pancreatitis, unspecified pancreatitis type K86.1 Active 409626586 Problem Chronic gastritis without bleeding, unspecified gastritis type K29.50 Active 8212577 Problem Social anxiety disorder F40.10 Active 77418195 Problem History of alcohol abuse Z87.898 Active 046628851 Problem History of pancreatitis Z87.19 Active 61412534018299 Problem GERD without esophagitis K21.9 Active 065621841 ALLERGIES No Information ENCOUNTERS Encounter Location Date Diagnosis [place] [address] [id number] [place] [id number] Aug, Social anxiety disorder F40.10 [place] [address] [id number] [place] [address] Jul, [place] [address] [id number] [place] [address] Jul, [place] [address] [id number] [place] [address] Jun, [place] [address] [address] [id number] [place] [address] Jun, Social anxiety disorder F40.10 ; Chronic gastritis without bleeding, unspecified gastritis type K29.50 ; Chronic pancreatitis, unspecified pancreatitis type K86.1 and History of alcohol abuse Z87.898 [place] [address] [id number] [place] [address] May, [facility] [address] [id number] May, [facility] [address] [facility] [id number] [id number] May, History of pancreatitis Z87.19 ; GERD without esophagitis K21.9 ; Social anxiety disorder F40.10 and History of alcohol abuse Z87.898 [facility] [address] [facility] [id number] [id number] Apr, Essential hypertension I10 and Palpitation R00.2 [place] [address] [id number] [address] Apr, [facility] [id number] [id number] Apr, IMMUNIZATIONS No Known Immunizations SOCIAL HISTORY Never Assessed REASON FOR VISIT Requests return call PLAN OF CARE VITAL SIGNS MEDICATIONS Unknown Medications RESULTS No Results PROCEDURES No Known procedures INSTRUCTIONS MEDICATIONS ADMINISTERED No Known Medications MEDICAL (GENERAL) HISTORY Type Description Date Medical History anxiety Medical History acid reflux Medical History chronic pancreatitis Surgical History Right tib/fib fracture repair 07/16 Hospitalization History pancreatitis 05/2017
--- OUTSIDE RECORDS SUMMARY | 2018-10-12 15:39 | XMS REPORT | Continuity of Care Document ---
Author Author [facility] Organization [facility] Address Unknown Phone Unavailable Allergies Active Description Code Type Severity Reaction Onset Reported/Identified Relationship to Patient Clinical Status Yes CODEINE SULFATE CODEINE SULFATE SEVERE Yes CODEINE SULFATE SEVERE GI PROBLEMS - NAUSEA Yes cefpodoxime [id number] Drug Allergy Unknown N/A 10/11/2014 Yes codeine [id number] Drug Allergy Unknown NAUSEA/VOMITING 09/28/2015 Yes codeine [id number] Drug Allergy Mild NAUSEA/VOMITING 06/21/2017 Medications Medication Packaging Start Date Stop Date Route Dosage Sig FAMOTIDINE VIAL INJ 20 MG/2CC (PEPCID VIAL) MG 09/05/2016 09/05/2016 ONCE&1552 ONDANSETRON VIAL INJ 4 MG/2CC (ZOFRAN 2CC VIAL) MG 09/05/2016 09/05/2016 ONCE&1552 NORMAL SALINE 1000CC IV BAG INJ 0.9 % (NS 1000CC IV BAG) ml 09/05/2016 09/05/2016 ONCE&1552 HYDROMORPHONE AMP INJ 2 MG/CC (DILAUDID 1CC AMP) MG 09/05/2016 09/05/2016 ONCE&1609 GI COCKTAIL SINGLE DOSE LIQ (GRASSHOPPER) ML 09/05/2016 09/05/2016 ONCE&1713 HYDROMORPHONE AMP INJ 2 MG/CC (DILAUDID 1CC AMP) MG 09/05/2016 09/05/2016 ONCE&1715 ONDANSETRON VIAL INJ 4 MG/2CC (ZOFRAN 2CC VIAL) MG 10/29/2016 10/29/2016 PRN ONCE DIPHENHYDRAMINE VIAL INJ 50 MG/CC (BENADRYL VIAL) MG 10/29/2016 10/29/2016 PRN ONCE NORMAL SALINE 1000CC IV BAG INJ 0.9 % (NS 1000CC IV BAG) ml 10/29/2016 10/29/2016 ONCE&0911 FENTANYL INJ 100 MCG/2CC VIAL MCG 10/29/2016 10/29/2016 ONCE&0952 METRONIDAZOLE TAB 500 MG (FLAGYL) MG 10/29/2016 10/29/2016 ONCE&1034 CIPROFLOXACIN TAB 500 MG (CIPRO) MG 10/29/2016 10/29/2016 ONCE&1034 FENTANYL INJ 100 MCG/2CC VIAL MCG 10/29/2016 10/29/2016 ONCE&1034 NORMAL SALINE 1000CC IV BAG INJ 0.9 % (NS 1000CC IV BAG) ml 12/24/2016 12/24/2016 ONCE&1005 FENTANYL INJ 100 MCG/2CC VIAL MCG 12/24/2016 12/24/2016 ONCE&1014 NORMAL SALINE 1000CC IV BAG INJ 0.9 % (NS 1000CC IV BAG) ml 12/24/2016 01/08/2017 CONTINUOUSEVERY 0 Hour KETOROLAC VIAL INJ 30 MG/CC (TORADOL VIAL) MG 12/24/2016 12/24/2016 PRN ONCE PROMETHAZINE VIAL INJ 25 MG/CC (PHENERGAN VIAL) MG 12/24/2016 12/24/2016 PRN ONCE FENTANYL INJ 100 MCG/2CC VIAL MCG 12/24/2016 12/27/2016 PRN Q2H Hydromorphone inj 2mg/cc vial (Dilaudid) MG 12/24/2016 12/24/2016 ONCE&1207 ONDANSETRON VIAL INJ 4 MG/2CC (ZOFRAN 2CC VIAL) MG 12/24/2016 12/31/2016 PRN Q4H NICOTINE PATCH PAT 21 MG (NICODERM) MG 12/24/2016 12/30/2016 Daily&2200 PROMETHAZINE VIAL INJ 25 MG/CC (PHENERGAN VIAL) MG 12/24/2016 01/03/2017 PRN Q8H KETOROLAC VIAL INJ 30 MG/CC (TORADOL VIAL) MG 12/24/2016 12/29/2016 PRN Q6H PANTOPAZOLE VIAL INJ 40 MG (PROTONIX IV) MG 12/25/2016 12/26/2016 Daily&0900 Hydromorphone inj 2mg/cc vial (Dilaudid) MG 12/25/2016 01/01/2017 PRN Q3H PROMETHAZINE VIAL INJ 25 MG/CC (PHENERGAN VIAL) MG 12/25/2016 01/04/2017 PRN Q8H LORAZEPAM per Detox Protocol B MG 12/25/2016 12/30/2016 PRN Q2H LORAZEPAM TAB 1 MG (ATIVAN) MG 01/01/2017 Q6H&0600,1200,1800,2359 POTASSIUM CHLORIDE TAB 20 MEQ (K-DUR) MEQ 12/26/2016 12/26/2016 ONCE&0840 Normal Saline 1000cc W/KCl 20mEq ml 12/26/2016 01/02/2017 CONTINUOUSEVERY 0 Hour PANTOPRAZOLE TAB 40 MG (PROTONIX) MG 12/27/2016 12/29/2016 Daily&0900 POLYETHYLENE GLYCOL POWDER UD PWD (MIRALAX 17GM UNIT DOSE PAKS) gm 12/27/2016 01/02/2017 Daily&0900 ONDANSETRON TAB 8 MG (ZOFRAN) MG 01/03/2017 PRN Q6H HYDROCODONE/APAP 10/325 TAB 10 /325 (BONNIE-TAB 10/325) TAB 12/27/2016 01/06/2017 Q4H&0000,0400,0800,1200,1600,2000 ALPRAZOLAM TAB 1 MG (XANAX) MG 01/06/2017 PRN TID HYDROCODONE/APAP 5MG/325MG TAB 5 MG/325MG (BONNIE-TAB 5/325) TAB 12/27/2016 01/06/2017 PRN Q4H PANTOPRAZOLE TAB 40 MG (PROTONIX) MG 12/28/2016 01/03/2017 Daily&0900 Problems Date Dx Coded Attending Type Code [...] Ot K85.2 ALCOHOL INDUCED ACUTE PANCREATITIS 05/31/2016 ATILIO DANIEL MD T Ot F10.10 ALCOHOL ABUSE, UNCOMPLICATED 05/31/2016 ATILIO DANIEL MD Ot F17.210 NICOTINE DEPENDENCE, CIGARETTES, UNCOMPL 05/31/2016 ATILIO DANIEL MD T Ot J20.9 ACUTE BRONCHITIS, UNSPECIFIED 05/31/2016 ATILIO DANIEL MD T Ot K85.20 ALCOHOL INDUCED ACUTE PANCREATITIS WITHO 05/31/2016 ATILIO DANIEL MD T Ot R10.13 EPIGASTRIC PAIN 05/31/2016 ATILIO DANIEL MD T Ot R11.0 NAUSEA 06/03/2016 JACQUE WELLS OSWALDO Ot E86.0 DEHYDRATION 06/03/2016 JACQUE WELLS OSWALDO Ot F17.210 NICOTINE DEPENDENCE, CIGARETTES, UNCOMPL 06/03/2016 JACQUE WELLS OSWALDO Ot F41.9 ANXIETY DISORDER, UNSPECIFIED 06/03/2016 JACQUE WELLS OSWALDO Ot K85.20 ALCOHOL INDUCED ACUTE PANCREATITIS WITHO 06/03/2016 JACQUE WELLS OSWALDO Ot Z72.89 OTHER PROBLEMS RELATED TO LIFESTYLE 06/04/2016 ATILIO DANIEL MD T Ot F10.10 ALCOHOL ABUSE, UNCOMPLICATED 06/04/2016 AITLIO DANIEL MD T Ot F17.210 NICOTINE DEPENDENCE, CIGARETTES, UNCOMPL 06/04/2016 ATILIO DANIEL MD T Ot J20.9 ACUTE BRONCHITIS, UNSPECIFIED 06/04/2016 ATILIO DANIEL MD T Ot K85.20 ALCOHOL INDUCED ACUTE PANCREATITIS WITHO 06/04/2016 ATILIO DANIEL MD T Ot R10.13 EPIGASTRIC PAIN 06/04/2016 MARÍA JOHNSON, ATILIO Garcia Ot R11.0 NAUSEA 09/07/2016 Michael Anguiano 535.30 ALCOHOLIC GASTRITIS, WITHOUT MENTION OF HEMORRHAGE 09/07/2016 Michael Anguiano K29.20 ALCOHOLIC GASTRITIS WITHOUT BLEEDING 10/29/2016 Audrey Potter 558.9 OTHER AND UNSPECIFIED NONINFECTIOUS GASTROENTERITIS AND COLITIS 10/29/2016 Audrey Potter 787.01 NAUSEA WITH VOMITING 10/29/2016 Audrey Potter K52.9 NONINFECTIVE GASTROENTERITIS AND COLITIS, UNSPECIFIED 10/29/2016 Audrey Potter R11.2 NAUSEA WITH VOMITING, UNSPECIFIED 12/01/2016 AUDREY POTTER SOFTWARE SPECIALIST Ot F41.9 ANXIETY DISORDER, UNSPECIFIED 12/01/2016 AUDREY POTTER SOFTWARE SPECIALIST Ot R07.9 CHEST PAIN, UNSPECIFIED 12/01/2016 AUDREY POTTER SOFTWARE SPECIALIST Ot Z79.899 OTHER LONG-TERM (CURRENT) DRUG THERAPY 12/24/2016 Jonathon Martínez W 276.8 HYPOPOTASSEMIA 12/24/2016 Mauricio Jonathon W 305.00 12/24/2016 MauricioJonathon W 536.2 PERSISTENT VOMITING 12/24/2016 Jnoathon Martínez A 577.0 12/24/2016 Jonathon Martínez W 789.07 ABDOMINAL PAIN, GENERALIZED 12/24/2016 Jonathon Martínez W E87.6 HYPOKALEMIA 12/24/2016 Jonathon Martínez W F10.10 ALCOHOL ABUSE, UNCOMPLICATED 12/24/2016 Jonathon Martínez A K85.20 ALCOHOL INDUCED ACUTE PANCREATITIS WITHOUT NECROSIS OR INFCT 12/24/2016 Jonathon Martínez W R10.84 GENERALIZED ABDOMINAL PAIN 12/24/2016 Jonathon Martínez W R11.10 VOMITING, UNSPECIFIED 12/24/2016 Jonathon Martínez W Y90.6 BLOOD ALCOHOL LEVEL OF 120-199 MG/100 ML 12/24/2016 Mauricio Jonathon W 577.0 ACUTE PANCREATITIS 12/24/2016 Mauricio Jonathon W K85.9 ACUTE PANCREATITIS, UNSPECIFIED 06/19/2017 SANTIAGO CHARLES MD Ot F17.210 NICOTINE [...] Ot K86.1 OTHER CHRONIC PANCREATITIS 06/21/2017 FABRICIO ETSEBAN MD, Ot F41.9 ANXIETY DISORDER, UNSPECIFIED 06/21/2017 [...] ALCOHOL DEPENDENCE, IN REMISSION 06/21/2017 FABRICIO ESTEBAN MD, Ot F41.9 ANXIETY DISORDER, UNSPECIFIED 06/21/2017 FABRICIO ESTEBAN MD Ot K85.90 ACUTE PANCREATITIS WITHOUT NECROSIS OR I 06/21/2017 FABRICIO ESTEBAN MD Ot K86.1 OTHER CHRONIC PANCREATITIS 06/21/2017 FABRICIO ESTEBAN MD Ot Z79.891 TALLOW REFINER (CURRENT) USE OF OPIATE ANALGE 06/21/2017 FABRICIO ESTEBAN MD Ot Z79.899 OTHER TALLOW REFINER (CURRENT) DRUG THERAPY 07/05/2017 SANTIAGO CHARLES MD [...] (FROM) UNSPECIFIED STAIRS AND 07/13/2017 HANNAH GLYNN MD Ot Y90.8 BLOOD ALCOHOL LEVEL OF 240 MG/100 ML OR 07/13/2017 HANNAH GLYNN MD Ot Y92.[address] IN SINGLE-FAMILY (PRIVATE) HO 08/10/2017 MAGUE, YAO DEVULCANIZER OPERATOR Ot F17.210 NICOTINE DEPENDENCE, CIGARETTES, UNCOMPL 08/10/2017 MAGUE, YAO DEVULCANIZER OPERATOR Ot F41.9 ANXIETY DISORDER, UNSPECIFIED 08/10/2017 MAGUE, YAO DEVULCANIZER OPERATOR Ot F90.9 ATTENTION-DEFICIT HYPERACTIVITY DISORDER 08/10/2017 MAGUE, YAO DEVULCANIZER OPERATOR Ot K21.9 GASTRO-ESOPHAGEAL REFLUX DISEASE WITHOUT 08/10/2017 MAGUE, YAO DEVULCANIZER OPERATOR Ot R11.2 NAUSEA WITH VOMITING, UNSPECIFIED 08/10/2017 MAGUE, YAO DEVULCANIZER OPERATOR Ot R19.7 DIARRHEA, UNSPECIFIED 08/10/2017 MAGUE, YAO DEVULCANIZER OPERATOR Ot Z87.19 PERSONAL HISTORY OF OTHER DISEASES OF 08/16/2017 MAGUE, YAO DEVULCANIZER OPERATOR Ot F17.210 NICOTINE DEPENDENCE, CIGARETTES, UNCOMPL 08/16/2017 MAGUE, YAO DEVULCANIZER OPERATOR Ot F41.9 ANXIETY DISORDER, UNSPECIFIED 08/16/2017 MAGUE, YAO DEVULCANIZER OPERATOR Ot F90.9 ATTENTION-DEFICIT HYPERACTIVITY DISORDER 08/16/2017 MAGUE, YAO DEVULCANIZER OPERATOR Ot K21.9 GASTRO-ESOPHAGEAL REFLUX DISEASE WITHOUT 08/16/2017 MAGUE, YAO DEVULCANIZER OPERATOR Ot R11.2 NAUSEA WITH VOMITING, UNSPECIFIED 08/16/2017 MAGUE, YAO DEVULCANIZER OPERATOR Ot R19.7 DIARRHEA, UNSPECIFIED 08/16/2017 MAGUE, YAO DEVULCANIZER OPERATOR Ot Z87.19 PERSONAL HISTORY OF OTHER DISEASES OF 06/24/2018 AUDREY POTTER SOFTWARE SPECIALIST Ot F17.210 NICOTINE DEPENDENCE, CIGARETTES, UNCOMPL 06/24/2018 AUDREY POTTER APRN Ot F41.9 ANXIETY DISORDER, UNSPECIFIED 06/24/2018 AUDREY POTTER SOFTWARE SPECIALIST Ot F90.9 ATTENTION-DEFICIT HYPERACTIVITY DISORDER 06/24/2018 AUDREY POTTER SOFTWARE SPECIALIST Ot K21.9 GASTRO-ESOPHAGEAL REFLUX DISEASE WITHOUT 06/24/2018 AUDREY POTTER SOFTWARE SPECIALIST Ot N13.2 HYDRONEPHROSIS WITH RENAL AND URETERAL C 06/24/2018 AUDREY POTTER SOFTWARE SPECIALIST Ot R10.32 LEFT LOWER QUADRANT PAIN 06/24/2018 AUDREY POTTER SOFTWARE SPECIALIST Ot Z87.19 PERSONAL HISTORY OF OTHER DISEASES OF 06/24/2018 AUDREY POTTER SOFTWARE SPECIALIST Ot Z88.5 ALLERGY STATUS TO NARCOTIC AGENT STATUS 06/24/2018 AUDREY POTTER SOFTWARE SPECIALIST Ot Z88.8 ALLERGY STATUS TO OTH DRUG/MEDS/BIOL SUB 06/26/2018 AUDREY POTTER APRN Ot F17.210 NICOTINE DEPENDENCE, CIGARETTES, UNCOMPL 06/26/2018 AUDREY POTTER SOFTWARE SPECIALIST Ot F41.9 ANXIETY DISORDER, UNSPECIFIED 06/26/2018 AUDREY POTTER SOFTWARE SPECIALIST Ot F90.9 ATTENTION-DEFICIT HYPERACTIVITY DISORDER 06/26/2018 AUDREY POTTER SOFTWARE SPECIALIST Ot K21.9 GASTRO-ESOPHAGEAL REFLUX DISEASE WITHOUT 06/26/2018 AUDREY POTTER SOFTWARE SPECIALIST Ot N13.2 HYDRONEPHROSIS WITH RENAL AND URETERAL C 06/26/2018 AUDREY POTTER APRN Ot R10.32 LEFT LOWER QUADRANT PAIN 06/26/2018 AUDREY POTTER APRN Ot Z87.19 PERSONAL HISTORY OF OTHER DISEASES OF 06/26/2018 AUDREY POTTER APRN Ot Z88.5 ALLERGY STATUS TO NARCOTIC AGENT STATUS 06/26/2018 AUDREY POTTER SOFTWARE SPECIALIST Ot Z88.8 ALLERGY STATUS TO OTH DRUG/MEDS/BIOL SUB 07/02/2018 AUDREY POTTER APRN Ot F17.210 NICOTINE DEPENDENCE, CIGARETTES, UNCOMPL 07/02/2018 AUDREY POTTER APRN Ot F41.9 ANXIETY DISORDER, UNSPECIFIED 07/02/2018 AUDREY POTTER APRN Ot F90.9 ATTENTION-DEFICIT HYPERACTIVITY DISORDER 07/02/2018 AUDREY POTTER APRN Ot K21.9 GASTRO-ESOPHAGEAL REFLUX DISEASE WITHOUT 07/02/2018 AUDREY POTTER SOFTWARE SPECIALIST Ot N13.2 HYDRONEPHROSIS WITH RENAL AND URETERAL C 07/02/2018 AUDREY POTTER SOFTWARE SPECIALIST Ot R10.32 LEFT LOWER QUADRANT PAIN 07/02/2018 AUDREY POTTER SOFTWARE SPECIALIST Ot Z87.19 PERSONAL HISTORY OF OTHER DISEASES OF 07/02/2018 AUDREY POTTER APRN Ot Z88.5 ALLERGY STATUS TO NARCOTIC AGENT STATUS 07/02/2018 AUDREY POTTER APRN Ot Z88.8 ALLERGY STATUS TO OTH DRUG/MEDS/BIOL SUB 08/21/2018 MAGUE, YAO DEVULCANIZER OPERATOR Ot A08.4 VIRAL INTESTINAL INFECTION, UNSPECIFIED 08/21/2018 MAGUE, YAO DEVULCANIZER OPERATOR Ot F17.210 NICOTINE DEPENDENCE, CIGARETTES, UNCOMPL 08/21/2018 MAGUE, YAO DEVULCANIZER OPERATOR Ot F41.9 ANXIETY DISORDER, UNSPECIFIED 08/21/2018 MAGUE, YAO DEVULCANIZER OPERATOR Ot F90.9 ATTENTION-DEFICIT HYPERACTIVITY DISORDER 08/21/2018 MAGUE, YAO DEVULCANIZER OPERATOR Ot F98.8 OTH BEHAV/EMOTN DISORD W ONSET USLY OCCU 08/21/2018 MAGUE, YAO DEVULCANIZER OPERATOR Ot K21.9 GASTRO-ESOPHAGEAL REFLUX DISEASE WITHOUT 08/21/2018 MAGUE, YAO DEVULCANIZER OPERATOR Ot R10.12 LEFT UPPER QUADRANT PAIN 08/21/2018 MAGUE YAO DEVULCANIZER OPERATOR Ot Z87.19 PERSONAL HISTORY OF OTHER DISEASES OF 08/21/2018 YAO BOWSER DEVULCANIZER OPERATOR Ot Z87.442 PERSONAL HISTORY OF URINARY CALCULI 08/21/2018 YAO BOWSER DEVULCANIZER OPERATOR Ot Z88.5 ALLERGY STATUS TO NARCOTIC AGENT STATUS 08/21/2018 MAGUE YAO DEVULCANIZER OPERATOR Ot Z88.8 ALLERGY STATUS TO OTH DRUG/MEDS/BIOL SUB 08/21/2018 MAGUE, YAO DEVULCANIZER OPERATOR Ot Z98.890 OTHER SPECIFIED POSTPROCEDURAL STATES 08/23/2018 MAGUE YAO DEVULCANIZER OPERATOR Ot A08.4 VIRAL INTESTINAL INFECTION, UNSPECIFIED 08/23/2018 MAGUE, YAO DEVULCANIZER OPERATOR Ot F17.210 NICOTINE DEPENDENCE, CIGARETTES, UNCOMPL 08/23/2018 MAGUE, YAO DEVULCANIZER OPERATOR Ot F41.9 ANXIETY DISORDER, UNSPECIFIED 08/23/2018 MAGUE, YAO DEVULCANIZER OPERATOR Ot F90.9 ATTENTION-DEFICIT HYPERACTIVITY DISORDER 08/23/2018 MAGUE, YAO DEVULCANIZER OPERATOR Ot F98.8 OTH BEHAV/EMOTN DISORD W ONSET USLY OCCU 08/23/2018 MAGUE, YAO DEVULCANIZER OPERATOR Ot K21.9 GASTRO-ESOPHAGEAL REFLUX DISEASE WITHOUT 08/23/2018 MAGUE, YAO DEVULCANIZER OPERATOR Ot R10.12 LEFT UPPER QUADRANT PAIN 08/23/2018 MAGUE, YAO DEVULCANIZER OPERATOR Ot Z87.19 PERSONAL HISTORY OF OTHER DISEASES OF 08/23/2018 MAGUE YAO DEVULCANIZER OPERATOR Ot Z87.442 PERSONAL HISTORY OF URINARY CALCULI 08/23/2018 MAGUEYAO WillisP Ot Z88.5 ALLERGY STATUS TO NARCOTIC AGENT STATUS 08/23/2018 MAGUE, YAO DEVULCANIZER OPERATOR Ot Z88.8 ALLERGY STATUS TO OTH DRUG/MEDS/BIOL SUB 08/23/2018 MAGUE, YAO DEVULCANIZER OPERATOR Ot Z98.890 OTHER SPECIFIED POSTPROCEDURAL STATES 08/31/2018 MAGUEYAO WillisP Ot A08.4 VIRAL INTESTINAL INFECTION, UNSPECIFIED 08/31/2018 MAGUEYAO Willis DEVULCANIZER OPERATOR Ot F17.210 NICOTINE DEPENDENCE, CIGARETTES, UNCOMPL 08/31/2018 MAGUE, YAO DEVULCANIZER OPERATOR Ot F41.9 ANXIETY DISORDER, UNSPECIFIED 08/31/2018 MAGUE, YAO DEVULCANIZER OPERATOR Ot F90.9 ATTENTION-DEFICIT HYPERACTIVITY DISORDER 08/31/2018 MAGUEYAO Willis DEVULCANIZER OPERATOR Ot F98.8 OT BEHAV/EMOTN DISORD W ONSET USLY OCCU 08/31/2018 MAGUEYAO Willis DEVULCANIZER OPERATOR Ot K21.9 GASTRO-ESOPHAGEAL REFLUX DISEASE WITHOUT 08/31/2018 MAGUEYAO Willis DEVULCANIZER OPERATOR Ot R10.12 LEFT UPPER QUADRANT PAIN 08/31/2018 MAGUEYAO Willis DEVULCANIZER OPERATOR Ot Z87.19 PERSONAL HISTORY OF OTHER DISEASES OF TH 08/31/2018 MAGUEYAO Willis DEVULCANIZER OPERATOR Ot Z87.442 PERSONAL HISTORY OF URINARY CALCULI 08/31/2018 MAGUEYAO WillisP Ot Z88.5 ALLERGY STATUS TO NARCOTIC AGENT STATUS 08/31/2018 MAGUEYAO Willis DEVULCANIZER OPERATOR Ot Z88.8 ALLERGY STATUS TO OTH DRUG/MEDS/BIOL SUB 08/31/2018 MAGUEYAO Willis DEVULCANIZER OPERATOR Ot Z98.890 OTHER SPECIFIED POSTPROCEDURAL STATES Procedures Code Description Performed By Performed On [id number] REPOSITION LEFT TIBIA WITH INTRAMED FIX, 07/09/2017 [...] - 06/03/16 04:37 Lipase 182 U/L 8-78 Comprehensive Metabolic Panel - 09/05/16 15:52 Albumin 4.7 g/dL 3.6-5.1 ALP 91 U/L 35-130 ALT 22 U/L 6-45 Anion Gap 17 6-14 AST 19 U/L 2-40 BUN 14 mg/dL 5-25 Calcium 9.7 mg/dL 8.3-10.4 Chloride 106 mmol/L 95-114 CO2 22 mEq/L 22-33 Creat 0.89 mg/dL 0.50-1.50 eGFR 104 mL/min/1.73m2 >59 Globulin 2.6 g/dL 2.3-3.5 Glucose 102 mg/dL 70-110 Osmo 292 280-295 Potassium 3.5 mmol/L 3.5-5.3 Sodium 141 mmol/L 134-148 TBil 0.7 mg/dL 0.2-1.2 TP 7.3 g/dL 6.0-8.3 Lipase - 10/29/16 09:05 Lipase 16 U/L 7-59 C-Reactive Protein - 10/29/16 09:05 C-Reactive Protein 19.16 mg/dL 0.00-0.50 Sed Rate - 10/29/16 09:05 Sed Rate 6 mm/hr 0-9 Complete blood count (CBC) with automated white [...] - 12/01/16 17:50 Lipase 13 U/L 8-78 Urinalysis - 12/24/16 10:05 Lipase - 12/25/16 05:35 Lipase >1200 U/L 7-59 Urinalysis - 12/25/16 06:45 Icotest N/A Negative Urine Volume Urine Volume Sufficient (10mL) Urine Yeast No Yeast present Urine-Appearance Slightly Cloudy Clear Urine-Bacteria Negative Urine-Bilirubin Negative Negative Urine-Blood Negative Negative Urine-Color Yellow Colorless-Lt. Yellow Urine-Glucose Negative Negative Urine-Ketones Negative Negative Urine-Leukocytes Negative Negative Urine-Mucus 3+ Urine-Nitrite Negative Negative Urine-Other Urine Saved if Culture Needed (48hrs from time of collection) Urine-pH 6.0 5-8.5 Urine-Protein 1+ Negative Urine-RBC Negative Urine-Specific Eldred >=1.030 1.000-1.030 Urine-WBC 0-2/HPF Urobilinogen 0.2 E.U./dL 0.2-1.0 Amylase - 12/26/16 07:00 Amylase 323 U/L 20-100 Urinalysis - 12/26/16 08:04 Icotest N/A Negative Urine Volume Urine Volume Sufficient (10mL) Urine Yeast No Yeast present Urine-Appearance Clear Clear Urine-Bacteria Negative Urine-Bilirubin Negative Negative Urine-Blood Negative Negative Urine-Color Yellow Colorless-Lt. Yellow Urine-Glucose Negative Negative Urine-Ketones 2+ Negative Urine-Leukocytes Negative Negative Urine-Nitrite Negative Negative Urine-Other Urine Saved if Culture Needed (48hrs from time of collection) Urine-pH 7.5 5-8.5 Urine-Protein Negative Negative Urine-RBC Negative Urine-Specific Eldred 1.015 1.000-1.030 Urine-WBC Nothing Seen on Microscopic Urobilinogen 1.0 E.U./dL 0.2-1.0 Comprehensive Metabolic Panel - 12/27/16 07:08 Albumin 3.3 g/dL 3.6-5.1 ALP 93 U/L 35-130 ALT 22 U/L 6-45 Anion Gap 12 6-14 AST 17 U/L 2-40 BUN 7 mg/dL 5-25 Calcium 8.8 mg/dL 8.3-10.4 Chloride 103 mmol/L 95-114 CO2 27 mEq/L 22-33 Creat 0.75 mg/dL 0.50-1.50 eGFR 127 mL/min/1.73m2 >59 Globulin 2.8 g/dL 2.3-3.5 Glucose 98 mg/dL 70-110 Osmo 283 280-295 Potassium 4.1 mmol/L 3.5-5.3 Sodium 138 mmol/L 134-148 TBil 1.6 mg/dL 0.2-1.2 TP 6.1 g/dL 6.0-8.3 Lipase - 12/27/16 07:08 Lipase 256 U/L 7-59 Amylase - 12/28/16 06:38 THYROID ANALYZER - 06/14/17 16:19 TSH 1.11 mIU/L 0.40-4.50 Complete blood count (CBC) with automated white [...] Lipase - 06/20/17 09:20 Lipase 1056 U/L 8-78 Serum or plasma ethanol measurement [...] - 06/21/17 05:34 Lipase 639 U/L 8-78 AMYLASE - 07/03/17 16:46 AMYLASE 16 U/L 21-101 Complete blood count (CBC) with automated white [...] FOR INFLUENZA A AND B ANTIGENS BY [facility] Complete blood count (CBC) with automated white blood cell (WBC) differential - 06/24/18 18:38 Blood leukocytes automated count (number/volume) 9.2 10*3/uL 4.3-11.0 Blood erythrocytes automated count (number/volume) 5.39 10*6/uL 4.35-5.85 Venous blood hemoglobin measurement (mass/volume) 16.6 g/dL 13.3-17.7 Blood hematocrit (volume fraction) 44 % 40-54 Automated erythrocyte mean corpuscular volume 82 [foz_us] 80-99 Automated erythrocyte mean corpuscular hemoglobin (mass per erythrocyte) 31 pg 25-34 Automated erythrocyte mean corpuscular hemoglobin concentration measurement ( mass/volume) 38 g/dL 32-36 Automated erythrocyte distribution width ratio 12.6 % 10.0-14.5 Automated blood platelet count (count/volume) 244 10*3/uL 130-400 Automated blood platelet mean volume measurement 10.3 [foz_us] 7.4-10.4 Automated blood neutrophils/100 leukocytes 55 % 42-75 Automated blood lymphocytes/100 leukocytes 37 % 12-44 Blood monocytes/100 leukocytes 6 % 0-12 Automated blood eosinophils/100 leukocytes 3 % 0-10 Automated blood basophils/100 leukocytes 0 % 0-10 Blood neutrophils automated count (number/volume) 5.0 10*3 1.8-7.8 Blood lymphocytes automated count (number/volume) 3.4 10*3 1.0-4.0 Blood monocytes automated count (number/volume) 0.5 10*3 0.0-1.0 Automated eosinophil count 0.2 10*3/uL 0.0-0.3 Automated blood basophil count (count/volume) 0.0 10*3/uL 0.0-0.1 Whole blood basic metabolic panel - 06/24/18 18:38 Serum or plasma sodium measurement (moles/volume) 137 mmol/L 135-145 Serum or plasma potassium measurement (moles/volume) 3.3 mmol/L 3.6-5.0 Serum or plasma chloride measurement (moles/volume) 103 mmol/L 98-107 Carbon dioxide 19 mmol/L 21-32 Serum or plasma anion gap determination (moles/volume) 15 mmol/L 5-14 Serum or plasma urea nitrogen measurement (mass/volume) 17 mg/dL 7-18 Serum or plasma creatinine measurement (mass/volume) 0.97 mg/dL 0.60-1.30 Serum or plasma urea nitrogen/creatinine mass ratio 18 NRG Serum or plasma creatinine measurement with calculation of estimated glomerular filtration rate > NRG Serum or plasma glucose measurement (mass/volume) 103 mg/dL 70-105 Serum or plasma calcium measurement (mass/volume) 9.6 mg/dL 8.5-10.1 Complete urinalysis with reflex to culture - 06/24/18 19:18 Urine color determination YELLOW NRG Urine clarity determination CLEAR NRG Urine pH measurement by test strip 5 5-9 Specific gravity of urine by test strip 1.020 1.016- 1.022 Urine protein assay by test strip, semi-quantitative 3+ NEGATIVE Urine glucose detection by automated test strip NEGATIVE NEGATIVE Erythrocytes detection in urine sediment by light microscopy 4+ NEGATIVE Urine ketones detection by automated test strip NEGATIVE NEGATIVE Urine nitrite detection by test strip NEGATIVE NEGATIVE Urine total bilirubin detection by test strip NEGATIVE NEGATIVE Urine urobilinogen measurement by automated test strip (mass/volume) 1 mg/dL NORMAL Urine leukocyte esterase detection by dipstick 1+ NEGATIVE Automated urine sediment erythrocyte count by microscopy (number/high power field) [HPF] NRG Automated urine sediment leukocyte count by microscopy (number/high power field ) [HPF] NRG Bacteria detection in urine sediment by light microscopy FEW NRG Squamous epithelial cells detection in urine sediment by light microscopy RARE NRG Crystals detection in urine sediment by light microscopy NONE NRG Casts detection in urine sediment by light microscopy NONE NRG Mucus detection in urine sediment by light microscopy LARGE NRG Complete urinalysis with reflex to culture YES NRG Renal epithelial cells detection in urine sediment by light microscopy NONE NRG Bacterial urine culture - 06/24/18 19:18 Bacterial urine culture NG NRG Complete blood count (CBC) with automated white blood cell (WBC) differential - 08/21/18 11:30 Blood leukocytes automated count (number/volume) 10.1 10*3/uL 4.3-11.0 Blood erythrocytes automated count (number/volume) 5.61 10*6/uL 4.35-5.85 Venous blood hemoglobin measurement (mass/volume) 17.0 g/dL 13.3-17.7 Blood hematocrit (volume fraction) 46 % 40-54 Automated erythrocyte mean corpuscular volume 83 [foz_us] 80-99 Automated erythrocyte mean corpuscular hemoglobin (mass per erythrocyte) 30 pg 25-34 Automated erythrocyte mean corpuscular hemoglobin concentration measurement ( mass/volume) 37 g/dL 32-36 Automated erythrocyte distribution width ratio 13.0 % 10.0-14.5 Automated blood platelet count (count/volume) 244 10*3/uL 130-400 Automated blood platelet mean volume measurement 10.5 [foz_us] 7.4-10.4 Automated blood neutrophils/100 leukocytes 70 % 42-75 Automated blood lymphocytes/100 leukocytes 23 % 12-44 Blood monocytes/100 leukocytes 6 % 0-12 Automated blood eosinophils/100 leukocytes 1 % 0-10 Automated blood basophils/100 leukocytes 0 % 0-10 Blood neutrophils automated count (number/volume) 7.0 10*3 1.8-7.8 Blood lymphocytes automated count (number/volume) 2.3 10*3 1.0-4.0 Blood monocytes automated count (number/volume) 0.6 10*3 0.0-1.0 Automated eosinophil count 0.1 10*3/uL 0.0-0.3 Automated blood basophil count (count/volume) 0.0 10*3/uL 0.0-0.1 Comprehensive metabolic panel - 08/21/18 11:30 Serum or plasma sodium measurement (moles/volume) 140 mmol/L 135-145 Serum or plasma potassium measurement (moles/volume) 3.9 mmol/L 3.6-5.0 Serum or plasma chloride measurement (moles/volume) 106 mmol/L 98-107 Carbon dioxide 25 mmol/L 21-32 Serum or plasma anion gap determination (moles/volume) 9 mmol/L 5-14 Serum or plasma urea nitrogen measurement (mass/volume) 14 mg/dL 7-18 Serum or plasma creatinine measurement (mass/volume) 1.03 mg/dL 0.60-1.30 Serum or plasma urea nitrogen/creatinine mass ratio 14 NRG Serum or plasma creatinine measurement with calculation of estimated glomerular filtration rate > NRG Serum or plasma glucose measurement (mass/volume) 137 mg/dL 70-105 Serum or plasma calcium measurement (mass/volume) 10.2 mg/dL 8.5-10.1 Serum or plasma total bilirubin measurement (mass/volume) 0.4 mg/dL 0.1-1.0 Serum or plasma alkaline phosphatase measurement (enzymatic activity/volume) 97 U/L 40-136 Serum or plasma aspartate aminotransferase measurement (enzymatic activity/ volume) 18 U/L 5-34 Serum or plasma alanine aminotransferase measurement (enzymatic activity/volume ) 20 U/L 0-55 Serum or plasma protein measurement (mass/volume) 7.2 g/dL 6.4-8.2 Serum or plasma albumin measurement (mass/volume) 4.6 g/dL 3.2-4.5 Serum or plasma amylase measurement (enzymatic activity/volume) - 08/21/18 11: 30 Serum or plasma amylase measurement (enzymatic activity/volume) 24 U /L 25-125 Lipase - 08/21/18 11:30 Lipase 26 U/L 8-78 Serum or plasma ethanol measurement (mass/volume) - 08/21/18 11:30 Serum or plasma ethanol measurement (mass/volume) < mg/dL <10 Complete urinalysis with reflex to culture - 08/21/18 12:47 Urine color determination YELLOW NRG Urine clarity determination SLIGHTLY CLOUDY NRG Urine pH measurement by test strip 7 5-9 Specific gravity of urine by test strip 1.010 1.016- 1.022 Urine protein assay by test strip, semi-quantitative NEGATIVE NEGATIVE Urine glucose detection by automated test strip NEGATIVE NEGATIVE Erythrocytes detection in urine sediment by light microscopy NEGATIVE NEGATIVE Urine ketones detection by automated test strip NEGATIVE NEGATIVE Urine nitrite detection by test strip NEGATIVE NEGATIVE Urine total bilirubin detection by test strip NEGATIVE NEGATIVE Urine urobilinogen measurement by automated test strip (mass/volume) NORMAL NORMAL Urine leukocyte esterase detection by dipstick NEGATIVE NEGATIVE Automated urine sediment erythrocyte count by microscopy (number/high power field) NONE NRG Automated urine sediment leukocyte count by microscopy (number/high power field ) RARE NRG Bacteria detection in urine sediment by light microscopy NEGATIVE NRG Squamous epithelial cells detection in urine sediment by light microscopy RARE NRG Crystals detection in urine sediment by light microscopy NONE NRG Casts detection in urine sediment by light microscopy NONE NRG Mucus detection in urine sediment by light microscopy NEGATIVE NRG Complete urinalysis with reflex to culture NO NRG Urine drug screening test - 08/21/18 12:47 Urine phencyclidine detection by screening method NEGATIVE NEGATIVE Urine benzodiazepines detection by screening method NEGATIVE NEGATIVE Urine cocaine detection NEGATIVE NEGATIVE Urine amphetamines detection by screening method NEGATIVE NEGATIVE Urine methamphetamine detection by screening method NEGATIVE NEGATIVE Urine cannabinoids detection by screening method NEGATIVE NEGATIVE Urine opiates detection by screening method POSITIVE NEGATIVE Urine barbiturates detection NEGATIVE NEGATIVE Screening urine tricyclic antidepressants detection NEGATIVE NEGATIVE Urine methadone detection by screening method NEGATIVE NEGATIVE Urine oxycodone detection NEGATIVE NEGATIVE Urine propoxyphene detection NEGATIVE NEGATIVE Encounters ACCT No. Visit Date/Time Discharge Status Pt. Type Provider Facility Loc./Unit Complaint [id number] 08/21/2018 11:22:00 08/21/2018 13:55:00 DIS Emergency YAO BOWSER [facility] UPPER ABD PAIN;NAUSEA [id number] 06/24/2018 18:17:00 06/24/2018 20:17:00 DIS Emergency AUDREY POTTER APRN [facility] PAIN IN LOWER BACK [id number] 08/10/2017 09:13:00 08/10/2017 12:56:00 DIS Emergency YAO BOWSER [facility] SOA, N/V/D [id number] 07/09/2017 20:56:00 07/11/2017 13:17:00 DIS Inpatient HANNAH GLYNN MD [facility] 4TH FALL [id number] 06/20/2017 10:26:00 06/21/2017 16:20:00 DIS Inpatient FABRICIO ESTEBAN MD [facility] 4TH ACUTE ON CHRONIC PANCREATITIS [id number] 06/19/2017 17:49:00 06/19/2017 21:35:00 DIS Emergency MELVIN JOHNSON, SANTIAGO Smith [facility] ABD PAIN [id number] 12/01/2016 17:21:00 12/01/2016 19:02:00 DIS Emergency AUDREY POTTER APRN [facility] CHEST PAIN,SOA [id number] 06/01/2016 08:27:00 06/03/2016 12:12:00 DIS Inpatient OSWALDO SANTILLAN DO [facility] 4TH PANCREATITIS [id number] 05/31/2016 16:26:00 05/31/2016 23:59:59 CLS Emergency MARÍA JOHNSON, ATILIO Garcia [facility] ABD PAIN [id number] 09/28/2015 16:15:00 10/05/2015 11:35:00 DIS Inpatient VANDANA JOHNSON, FRANK Wheeler [facility] 4TH PANCREATITIS, ABD PAIN,N/ V, ALCOHOLISM [id number] 10/12/2018 15:33:00 ACT Emergency MARÍA JOHNSON, ATILIO Garcia [facility] SOB CHEST PAIN [id number] 10/11/2014 21:23:00 Document Registration [id number] 12/24/2016 10:10:00 12/28/2016 10:07:00 DIS Inpatient Mauricio [facility] ER [id number] 10/29/2016 08:51:00 10/29/2016 11:05:00 DIS Outpatient Audrey Potter [id number] 09/05/2016 15:00:00 09/05/2016 18:24:00 DIS Outpatient Silvio [facility] ER [id number] 09/05/2016 15:54:50 Document Registration [id number] 09/12/2017 16:00:00 09/12/2017 23:59:59 CLS Outpatient BELTRAN DHALIWAL [facility] [id number] 07/03/2017 16:00:00 Document Registration [id number] 06/14/2017 15:40:00 Document Registration
[2018-10-12 16:22] LABS: BASOPHILS % (AUTO) 0 % (0-10); EOSINOPHILS # (AUTO) 0.2 10^3/uL (0.0-0.3); EOSINOPHILS % (AUTO) 2 % (0-10); HEMATOCRIT 44 % (40-54); HEMOGLOBIN 16.4 G/DL (13.3-17.7); LYMPHOCYTES # (AUTO) 3.2 X 10^3 (1.0-4.0); LYMPHOCYTES % (AUTO) 37 % (12-44); MEAN CORPUSCULAR HEMOGLOBIN 31 PG (25-34); MEAN CORPUSCULAR HGB CONC 37 G/DL (32-36); MEAN CORPUSCULAR VOLUME 83 FL (80-99); MEAN PLATELET VOLUME 10.1 FL (7.4-10.4); MONOCYTES # (AUTO) 0.5 X 10^3 (0.0-1.0); MONOCYTES % (AUTO) 5 % (0-12); NEUTROPHILS # (AUTO) 4.7 X 10^3 (1.8-7.8); NEUTROPHILS % (AUTO) 55 % (42-75); PLATELET COUNT 302 10^3/uL (130-400); RED CELL DISTRIBUTION WIDTH 13.2 % (10.0-14.5); WHITE BLOOD COUNT 8.5 10^3/uL (4.3-11.0)
[2018-10-12 16:30] LABS: PROTHROMBIN TIME PATIENT 12.7 SEC (12.2-14.7)
[2018-10-12 16:37] LABS: ALANINE AMINOTRANSFERASE 27 U/L (0-55); ALBUMIN 4.7 GM/DL (3.2-4.5); ALKALINE PHOSPHATASE 98 U/L (40-136); BILIRUBIN,TOTAL 0.4 MG/DL (0.1-1.0); BUN/CREATININE RATIO 9; CALCIUM 9.6 MG/DL (8.5-10.1); CARBON DIOXIDE 26 MMOL/L (21-32); CHLORIDE 104 MMOL/L (98-107); CREATININE SERUM 0.99 MG/DL (0.60-1.30); GFR ESTIMATED > 60; GLUCOSE 117 MG/DL (70-105); MAGNESIUM 2.3 MG/DL (1.8-2.4); POTASSIUM 3.5 MMOL/L (3.6-5.0); SODIUM 140 MMOL/L (135-145); TOTAL PROTEIN 7.2 GM/DL (6.4-8.2)
[2018-10-12 16:43] LABS: MYOGLOBIN SERUM 37.6 NG/ML (10.0-92.0)
--- NOTE | 2018-10-12 16:47 | ED Chest Pain ---
General Chief Complaint: Chest Pain Stated Complaint: SOB CHEST PAIN Nursing Triage Note: Ambulatory to rm 7. Pt c/o chest pain, SOB, and "feeling like going to pass out." Pt reports feeling as if "heart skips a beat and then slows down." Pt reports feeling as if this anxiety related and the beginning of a panic attack. Pt does report pt was to wear a holter monitor but never followed up. Nursing Sepsis Screen: No Definite Risk Source: patient Exam Limitations: no limitations History of Present Illness Date Seen by Provider: Oct 12, 2018 Time Seen by Provider: 16:07 Initial Comments This 28-year-old young man presents to the emergency room with complaints of shortness of breath and left upper chest pain since about 30 minutes prior to arrival. He has had other episodes intermittently in the recent past. He also reports his heart seems to skip a beat sometimes and sometimes races. He is not feeling that way now. In general he feels better now than he did at the onset of symptoms but still feels a little short of breath or lightheaded. He has been worked up for chest pain in the past with an ER visit in 2017. He was supposed to have a Holter monitor placed but did not follow-up. He has had some recent cough but denies fever. He does smoke. He no longer drinks alcohol and denies drug use. His last primary care provider was Dr. Fabricio Zavala. He reports his pain seems to get better with activity and distraction but is worse at rest. He does wonder if he is having symptoms of anxiety. He also reports some chest pain in the right upper chest a couple nights ago that woke him from sleep. He denies any use of stimulants of any kind. Allergies and Home Medications Allergies Coded Allergies: cefpodoxime (Verified Allergy, Unknown, 10/11/14) Told allergic when he was a child. Reaction unknown. codeine (Verified Adverse Reaction, Mild, NAUSEA/VOMITING, 06/21/17) Home Medications Omeprazole 40 Mg Capsule., 40 MG PO DAILY, (Reported) Ondansetron HCl 8 Mg Tablet, 8 MG PO Q8H PRN for NAUSEA/VOMITING-1ST LINE Prescribed by: YAO BOWSER on 08/21/18 1350 Tramadol HCl 50 Mg Tablet, 50 MG PO Q8H PRN for PAIN-MODERATE TO SEVERE Prescribed by: YAO BOWSER on 08/21/18 1350 Patient Home Medication List Home Medication List Reviewed: Yes Review of Systems Review of Systems Constitutional: no symptoms reported EENTM: No Symptoms Reported Respiratory: See HPI Cardiovascular: See HPI Gastrointestinal: No Symptoms Reported Genitourinary: No Symptoms Reported Musculoskeletal: no symptoms reported Skin: no symptoms reported Psychiatric/Neurological: No Symptoms Reported Endocrine: No Symptoms Reported Hematologic/Lymphatic: No Symptoms Reported Past Pysggop-Ooantr-Jonuru Hx Past Med/Social Hx: Reviewed and Corrections made Patient Social History Alcohol Use: Denies Use Number of Drinks Today: AA Alcohol Beverage of Choice: Beer Recreational Drug Use: No Smoking Status: Current Everyday Smoker Type Used: Cigarettes 2nd Hand Smoke Exposure: Yes Recent Foreign Travel: No Contact w/Someone Who Travel: No Recent Infectious Disease Expo: No Recent Hopitalizations: No Physical Abuse: No Sexual Abuse: No Immunizations Up To Date Tetanus Booster (TDap): Unknown PED Vaccines UTD: No Seasonal Allergies Seasonal Allergies: No Past Medical History Surgeries: Yes (L-BROKEN LEG URBANO PLACED) Orthopedic Respiratory: No Cardiac: No Neurological: No Reproductive Disorders: No Sexually Transmitted Disease: No HIV/AIDS: No Genitourinary: Yes Kidney Stones Gastrointestinal: Yes Gastroesophageal Reflux, Pancreatitis Musculoskeletal: Yes (RT CLUB FOOT WHEN YOUNGER) Fractures Endocrine: No HEENT: No Cancer: No Did You Recieve Any Treatments: No Psychosocial: Yes ADD/ADHD, Anxiety Integumentary: No Blood Disorders: No Adverse Reaction/Blood Tranf: No Family Medical History Patient reports no known family medical history. No Pertinent Family Hx Physical Exam Vital Signs Vital Signs - First Documented 10/12/18 15:45 Temp 98.4 Pulse 77 Resp 18 B/P (MAP) 143/94 (110) Pulse Ox 98 O2 Delivery Room Air Capillary Refill : Less Than 3 Seconds Height, Weight, BMI Height: 5'5.00" Weight: 180lbs. 0.0oz. 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 Norm as Tested Skin: Normal Color, Warm/Dry Progress/Results/Core Measures Results/Orders Lab Results Laboratory Tests Test 10/12/18 15:55 Range/Units White Blood Count 8.5 4.3-11.0 10^3/uL Red Blood Count 5.33 4.35-5.85 10^6/uL Hemoglobin 16.4 13.3-17.7 G/DL Hematocrit 44 40-54 % Mean Corpuscular Volume 83 80-99 FL Mean Corpuscular Hemoglobin 31 25-34 PG Mean Corpuscular Hemoglobin Concent 37 H 32-36 G/DL Red Cell Distribution Width 13.2 10.0-14.5 % Platelet Count 302 130-400 10^3/uL Mean Platelet Volume 10.1 7.4-10.4 FL Neutrophils (%) (Auto) 55 42-75 % Lymphocytes (%) (Auto) 37 12-44 % Monocytes (%) (Auto) 5 0-12 % Eosinophils (%) (Auto) 2 0-10 % Basophils (%) (Auto) 0 0-10 % Neutrophils # (Auto) 4.7 1.8-7.8 X 10^3 Lymphocytes # (Auto) 3.2 1.0-4.0 X 10^3 Monocytes # (Auto) 0.5 0.0-1.0 X 10^3 Eosinophils # (Auto) 0.2 0.0-0.3 10^3/uL Basophils # (Auto) 0.0 0.0-0.1 10^3/uL Prothrombin Time 12.7 12.2-14.7 SEC INR Comment 1.0 0.8-1.4 Activated Partial Thromboplast Time 31 24-35 SEC D-Dimer 0.17 0.00-0.49 UG/ML Sodium Level 140 135-145 MMOL/L Potassium Level 3.5 L 3.6-5.0 MMOL/L Chloride Level 104 98-107 MMOL/L Carbon Dioxide Level 26 21-32 MMOL/L Anion Gap 10 5-14 MMOL/L Blood Urea Nitrogen 9 7-18 MG/DL Creatinine 0.99 0.60-1.30 MG/DL Estimat Glomerular Filtration Rate > 60 BUN/Creatinine Ratio 9 Glucose Level 117 H 70-105 MG/DL Calcium Level 9.6 8.5-10.1 MG/DL Corrected Calcium 8.5-10.1 MG/DL Magnesium Level 2.3 1.8-2.4 MG/DL Total Bilirubin 0.4 0.1-1.0 MG/DL Aspartate Amino Transf (AST/SGOT) 22 5-34 U/L Alanine Aminotransferase (ALT/SGPT) 27 0-55 U/L Alkaline Phosphatase 98 40-136 U/L Myoglobin 37.6 10.0-92.0 NG/ML Troponin I < 0.028 <0.028 NG/ML Total Protein 7.2 6.4-8.2 GM/DL Albumin 4.7 H 3.2-4.5 GM/DL My Orders Orders - ATILIO DANIEL MD Cbc With Automated Diff (10/12/18 16:13) Magnesium (10/12/18 16:13) Ekg Tracing (10/12/18 16:13) Cardiac Profile 1 (10/12/18 16:13) Comprehensive Metabolic Panel (10/12/18 16:13) Myoglobin Serum (10/12/18 16:13) Protime With Inr (10/12/18 16:13) Partial Thromboplastin Time (10/12/18 16:13) O2 (10/12/18 16:13) Monitor-Rhythm Ecg Trace Only (10/12/18 16:13) Lipid Panel (10/13/18 06:00) Saline Lock/Iv-Start (10/12/18 16:13) Fibrin Degradation Products (10/12/18 16:13) Chest Pa/Lat (2 View) (10/12/18 16:13) Vital Signs/I&O 10/12/18 10/12/18 10/12/18 15:45 15:45 17:30 Temp 98.4 98.4 Pulse 77 75 Resp 18 18 B/P (MAP) 143/94 (110) 142/80 (100) Pulse Ox 98 98 O2 Delivery Room Air Room Air Room Air Blood Pressure Mean: 110 Progress Progress Note : Time: 17:20 Progress Note Workup was unremarkable. Patient is not having any symptoms at this time. Follow-up with his PCP was recommended. Initial ECG Impression Date: Oct 12, 2018 Initial ECG Impression Time: 16:02 Initial ECG Rate: 70 Initial ECG Rhythm: Normal Sinus Initial ECG Impression: Normal Comment Normal sinus rhythm with no ST elevation or depression. Borderline left axis deviation. Nonspecific T waves with no evidence of ischemia. No abnormal intervals. Diagnostic Imaging Diagonstic Imaging: Xray Plain Films/CT/US/NM/MRI: chest Comments Chest x-ray viewed by me and report reviewed. See report below: NAME: CHANDNI BAGLEY [facility] REC#: [id number] PT STATUS: REG ER : 1990 PHYSICIAN: ATILIO DANIEL MD ADMIT DATE: 10/12/18/ER Draft Date of Exam:10/12/18 CHEST PA/LAT (2 VIEW) EXAMINATION: PA and lateral chest at 04:23 p.m. INDICATION: Chest pain. FINDINGS: The heart size is within normal limits and stable when compared to 12/01/2016. The lungs remain clear. There is still no sign of failure, pneumonia, or of a pleural effusion to suggest an acute abnormality. The mediastinum is not widened. The osseous structures are intact. IMPRESSION: There is no evidence for active disease. When compared to the prior study, there has been no significant change. Dictated on workstation # [id number] Dict: 10/12/18 1639 Trans: 10/12/18 1645 [id number] Interpreted by: EASTON CHAKRABORTY MD Departure Impression Primary Impression: Atypical chest pain Additional Impression: Palpitations Disposition: 01 HOME, SELF-CARE Condition: Improved Departure-Patient Inst. Decision time for Depature: 17:25 Referrals: NO,LOCAL PHYSICIAN (PCP/Family) Primary Care Physician Patient Instructions: Palpitations Add. Discharge Instructions: Follow-up with your primary care provider soon as possible. Discussed the potential for an outpatient cardiac monitoring study. Work toward quitting smoking. Seek assistance from your primary care provider if needed. Return to emergency room if symptoms are worsening again. All discharge instructions reviewed with patient and/or family. Voiced understanding. Copy Copies To 1: FABRICIO ZAVALA MD, JOSHUA T MD Oct 12, 2018 16:47
[2018-10-12 17:30] VITALS: BP 142/80
== END 2018-10-12 17:30 | disposition home or self-care (01) ==
LOC: EDUNIT# 15:31 → ER 15:33
DX: R07.9 Chest pain, unspecified (principal); R00.2 Palpitations; K21.9 Gastro-esophageal reflux disease without esophagitis; F98.8 Other specified behavioral and emotional disorders with onset usually occurring in childhood and adolescence; F90.9 Attention-deficit hyperactivity disorder, unspecified type; F41.9 Anxiety disorder, unspecified; F17.210 Nicotine dependence, cigarettes, uncomplicated; Z87.442 Personal history of urinary calculi; Z88.8 Allergy status to other drugs, medicaments and biological substances; Z87.19 Personal history of other diseases of the digestive system; Z88.5 Allergy status to narcotic agent
CPT/HCPCS: 36415; 71046; 80053; 83735; 83874; 84484; 85025; 85379; 85610; 85730; 93005; 93041

== ENCOUNTER 2020-03-03 12:52 | Inpatient (IN) | payer SELFPAY ==
[~2020-03-03] VITALS: Ht 165.1 cm; Wt 76.6 kg
[~2020-03-03 12:52] MED LIST changes: -IBUP-2055 PO; +IBUP-2473 PO; -OMEP20CA12 PO; +OMEP20CA18 PO; +OMEP40CA27 PO; -OMEP40CA36 PO; -TAMS0.4C98 PO; +TMSL.4C PO; -TRAM50TA2 PO; +TRM50T PO
[2020-03-03] MEDS ORDERED: fentaNYL INJECTION 100 MCG/2 ML AMP IVP ONE (13:45)
[2020-03-03 13:46] LABS: BASOPHILS % (AUTO) 0 % (0-10); EOSINOPHILS # (AUTO) 0.1 10^3/uL (0.0-0.3); EOSINOPHILS % (AUTO) 1 % (0-10); HEMATOCRIT 44 % (40-54); HEMOGLOBIN 16.3 G/DL (13.3-17.7); LYMPHOCYTES # (AUTO) 2.1 X 10^3 (1.0-4.0); LYMPHOCYTES % (AUTO) 23 % (12-44); MEAN CORPUSCULAR HEMOGLOBIN 30 PG (25-34); MEAN CORPUSCULAR HGB CONC 37 G/DL (32-36); MEAN CORPUSCULAR VOLUME 82 FL (80-99); MEAN PLATELET VOLUME 10.3 FL (7.4-10.4); MONOCYTES # (AUTO) 0.4 X 10^3 (0.0-1.0); MONOCYTES % (AUTO) 5 % (0-12); NEUTROPHILS # (AUTO) 6.6 X 10^3 (1.8-7.8); NEUTROPHILS % (AUTO) 71 % (42-75); PLATELET COUNT 269 10^3/uL (130-400); RED CELL DISTRIBUTION WIDTH 12.7 % (10.0-14.5); WHITE BLOOD COUNT 9.3 10^3/uL (4.3-11.0)
[2020-03-03] MEDS ORDERED: morphine INJ 10 MG/ML 1ML (SYR OR VIAL) IVP STA (13:53)
[2020-03-03] MEDS ORDERED: ONDANSETRON 4 MG/2 ML (SDV) Z0FRAN IVP ONE (14:00)
[2020-03-03] MEDS ORDERED: NS IV 1000 ML 1,000 ML IV SCH (14:00)
[2020-03-03 14:04] LABS: ALANINE AMINOTRANSFERASE 38 U/L (0-55); ALBUMIN 4.7 GM/DL (3.2-4.5); ALKALINE PHOSPHATASE 92 U/L (40-136); AMYLASE 154 U/L (25-125); BILIRUBIN,TOTAL 0.8 MG/DL (0.1-1.0); BUN/CREATININE RATIO 6; CALCIUM 9.7 MG/DL (8.5-10.1); CARBON DIOXIDE 27 MMOL/L (21-32); CHLORIDE 104 MMOL/L (98-107); CREATININE SERUM 0.95 MG/DL (0.60-1.30); GFR ESTIMATED > 60; GLUCOSE 124 MG/DL (70-105); LIPASE 641 U/L (8-78); POTASSIUM 3.9 MMOL/L (3.6-5.0); SODIUM 141 MMOL/L (135-145); TOTAL PROTEIN 7.2 GM/DL (6.4-8.2)
[2020-03-03] MEDS ORDERED: CATHETER FLUSH 10 ML SYR IV PRN ×2 (14:45→16:45)
[2020-03-03] MEDS ORDERED: NS 100 ML (IVPB) BAG IV ONE (14:45)
[2020-03-03] MEDS ORDERED: HOLD METFORMIN - RECEIVED CONTRAST 20 ML VIAL IV SCH (14:45)
[2020-03-03] MEDS ORDERED: IOHEXOL 350 MG/ML 100 ML (OMNIPAQUE 350) VIAL IV ONE (14:45)
--- NOTE | 2020-03-03 15:03 | Diagnostic Imaging Report ---
EXAMINATION: CT Abdomen and Pelvis with intravenous contrast. TECHNIQUE: Multiple contiguous axial images were obtained through the abdomen and pelvis after the uneventful administration of intravenous contrast. All CT scans use one or more of the following dose optimizing techniques: automated exposure control, MA and/or KvP adjustment based on a patient size and exam type, or iterative reconstruction. HISTORY: Abdominal pain. COMPARISON: 06/24/2018. FINDINGS: Limited views of the lower thorax are unremarkable. The liver is normal without focal lesion. There is no biliary ductal dilation. Gallbladder is normal. There is moderate peripancreatic stranding, consistent with acute pancreatitis. No pseudoaneurysm is seen. No venous thrombosis is seen. No fluid collection. Spleen is normal. Adrenal glands are normal. The kidneys are normal. There is no hydronephrosis. Urinary bladder is normal. Visualized bowel is normal in caliber without obstruction or inflammation. No free fluid or air. No abdominal or pelvic lymphadenopathy. Aorta is normal in caliber without aneurysm. There are no suspicious osseous lesions. IMPRESSION: 1. CT findings of acute pancreatitis without complications seen. Dictated by: Dictated on workstation # [id number]
[2020-03-03] MEDS ORDERED: PROMETHAZINE INJ 25 MG/ML (PHENERGAN) AMP IVP ONE (15:45)
[2020-03-03] MEDS ORDERED: HYDROmorphone 2 MG/ML VIAL (DILAUDID) IV ONE (15:45)
--- NOTE | 2020-03-03 15:51 | ED Abdominal Pain ---
General Chief Complaint: Abdominal/GI Problems Stated Complaint: L ABDOMINAL PAIN Nursing Triage Note: PT STATES HE THINKS HE HAS PANCREATITIS, PAIN STARTED THIS MORNING. PT STOPPED DRINKING 2 YEARS AGO AND HAS NOT HAD PAIN SINCE, TODAY'S ONSET WAS SUDDEN. PT STATES HE IS VOMITING Sepsis Screen: No Definite Risk Source of Information: Patient Exam Limitations: No Limitations History of Present Illness Date Seen by Provider: Mar 03, 2020 Time Seen by Provider: 13:33 Initial Comments 30-year-old female who presents to the emergency room with complaints of left upper quadrant abdominal pain. He reports that he believes he has pancreatitis again. He reports that he used to be a heavy drinker but has not had anything to drink alcohol otherwise for the past 2 years. He reports that he had not sudden onset of abdominal pain and vomiting that started this morning. Denies any fevers. Associated Symptoms: Nausea/Vomiting Allergies and Home Medications Allergies Coded Allergies: cefpodoxime (Verified Allergy, Unknown, 10/11/14) Told allergic when he was a child. Reaction unknown. codeine (Verified Adverse Reaction, Mild, NAUSEA/VOMITING, 06/21/17) Home Medications Omeprazole 40 Mg Capsule.dr, 40 MG PO DAILY, (Reported) Ondansetron HCl 8 Mg Tablet, 8 MG PO Q8H PRN for NAUSEA/VOMITING-1ST LINE Prescribed by: YAO BOWSER on 08/21/18 1350 Tramadol HCl 50 Mg Tablet, 50 MG PO Q8H PRN for PAIN-MODERATE TO SEVERE Prescribed by: YAO BOWSER on 08/21/18 1350 Patient Home Medication List Home Medication List Reviewed: Yes Review of Systems Review of Systems Constitutional: see HPI; No chills, No fever Gastrointestinal: See HPI, Abdominal Pain All Other Systems Reviewed Negative Unless Noted: Yes Past Oychlwr-Lkcuad-Qrquwv Hx Past Med/Social Hx: Reviewed Nursing Past Med/Soc Hx Patient Social History Alcohol Use: Past History Number of Drinks Today: AA Alcohol Beverage of Choice: Beer Recreational Drug Use: No Type Used: Cigarettes 2nd Hand Smoke Exposure: Yes Recent Foreign Travel: No Contact w/Someone Who Travel: No Recent Infectious Disease Expo: No Recent Hopitalizations: No Immunizations Up To Date Tetanus Booster (TDap): Unknown PED Vaccines UTD: No Seasonal Allergies Seasonal Allergies: No Past Medical History Surgeries: Yes (L-BROKEN LEG URBANO PLACED) Orthopedic Respiratory: No Cardiac: No Neurological: No Reproductive Disorders: No Sexually Transmitted Disease: No HIV/AIDS: No Genitourinary: Yes Kidney Stones Gastrointestinal: Yes Gastroesophageal Reflux, Pancreatitis Musculoskeletal: Yes (RT CLUB FOOT WHEN YOUNGER) Fractures Endocrine: No HEENT: No Cancer: No Did You Recieve Any Treatments: No Psychosocial: Yes ADD/ADHD, Anxiety Integumentary: No Blood Disorders: No Adverse Reaction/Blood Tranf: No Family Medical History Reviewed Nursing Family Hx Patient reports no known family medical history. No Pertinent Family Hx Physical Exam Vital Signs Vital Signs - First Documented 03/03/20 13:25 Temp 36.4 Pulse 80 Resp 20 B/P (MAP) 143/67 (92) Pulse Ox 96 Capillary Refill : Less Than 3 Seconds Height/Weight/BMI Height: 5'5.00" Weight: 180lbs. 0.0oz. 81.824075yi; 189.00 BMI Method:Stated General Appearance: WD/WN, no apparent distress Respiratory: chest non-tender, lungs clear, normal breath sounds, no respirato ry distress, no accessory muscle use Cardiovascular: normal peripheral pulses, regular rate, rhythm, no edema, no gallop, no JVD, no murmur Gastrointestinal: normal bowel sounds, soft, no organomegaly, no pulsatile mass, tenderness (left upper quadrant tenderness) Neurologic/Psychiatric: alert, normal mood/affect, oriented x 3 Skin: normal color, warm/dry Progress/Results/Core Measures Results/Orders Lab Results Laboratory Tests Test 03/03/20 13:38 Range/Units White Blood Count 9.3 4.3-11.0 10^3/uL Red Blood Count 5.39 4.35-5.85 10^6/uL Hemoglobin 16.3 13.3-17.7 G/DL Hematocrit 44 40-54 % Mean Corpuscular Volume 82 80-99 FL Mean Corpuscular Hemoglobin 30 25-34 PG Mean Corpuscular Hemoglobin Concent 37 H 32-36 G/DL Red Cell Distribution Width 12.7 10.0-14.5 % Platelet Count 269 130-400 10^3/uL Mean Platelet Volume 10.3 7.4-10.4 FL Neutrophils (%) (Auto) 71 42-75 % Lymphocytes (%) (Auto) 23 12-44 % Monocytes (%) (Auto) 5 0-12 % Eosinophils (%) (Auto) 1 0-10 % Basophils (%) (Auto) 0 0-10 % Neutrophils # (Auto) 6.6 1.8-7.8 X 10^3 Lymphocytes # (Auto) 2.1 1.0-4.0 X 10^3 Monocytes # (Auto) 0.4 0.0-1.0 X 10^3 Eosinophils # (Auto) 0.1 0.0-0.3 10^3/uL Basophils # (Auto) 0.0 0.0-0.1 10^3/uL Sodium Level 141 135-145 MMOL/L Potassium Level 3.9 3.6-5.0 MMOL/L Chloride Level 104 98-107 MMOL/L Carbon Dioxide Level 27 21-32 MMOL/L Anion Gap 10 5-14 MMOL/L Blood Urea Nitrogen 6 L 7-18 MG/DL Creatinine 0.95 0.60-1.30 MG/DL Estimat Glomerular Filtration Rate > 60 BUN/Creatinine Ratio 6 Glucose Level 124 H 70-105 MG/DL Calcium Level 9.7 8.5-10.1 MG/DL Corrected Calcium 8.5-10.1 MG/DL Total Bilirubin 0.8 0.1-1.0 MG/DL Aspartate Amino Transf (AST/SGOT) 21 5-34 U/L Alanine Aminotransferase (ALT/SGPT) 38 0-55 U/L Alkaline Phosphatase 92 40-136 U/L Total Protein 7.2 6.4-8.2 GM/DL Albumin 4.7 H 3.2-4.5 GM/DL Amylase Level 154 H 25-125 U/L Lipase 641 H 8-78 U/L My Orders Orders - ELAN HEARN Comprehensive Metabolic Panel (03/03/20 13:32) Lipase (03/03/20 13:32) Amylase (03/03/20 13:32) Ed Iv/Invasive Line Start (03/03/20 13:32) Cbc With Automated Diff (03/03/20 13:32) Fentanyl Injection (Sublimaze Injection (03/03/20 13:45) Morphine Injection (Morphine Injection (03/03/20 13:53) Ondansetron Injection (Zofran Injectio (03/03/20 14:00) Ns Iv 1000 Ml (Sodium Chloride 0.9%) (03/03/20 14:00) Ct Abdomen/Pelvis W (03/03/20 14:27) Iohexol Injection (Omnipaque 350 Mg/Ml 1 (03/03/20 14:45) Received Contrast (Hold Metformin- Contr (03/03/20 14:45) Sodium Chloride Flush (Catheter Flush Sy (03/03/20 14:45) Ns (Ivpb) (Sodium Chloride 0.9% Ivpb Bag (03/03/20 14:45) Hydromorphone Injection (Dilaudid Inject (03/03/20 15:45) Promethazine Injection (Phenergan Injec (03/03/20 15:45) Alcohol (03/03/20 15:42) Drug Screen Stat (Urine) (03/03/20 15:42) Medications Given in ED Current Medications Medications Dose Ordered Sig/Imer Route Start Time Stop Time Status Last Admin Dose Admin Fentanyl Citrate 50 mcg ONCE ONCE IVP 03/03/20 13:45 03/03/20 13:46 DC 03/03/20 13:43 50 MCG Hydromorphone HCl 1 mg ONCE ONCE IV 03/03/20 15:45 03/03/20 15:46 DC 03/03/20 15:43 1 MG Iohexol 75 ml ONCE ONCE IV 03/03/20 14:45 03/03/20 14:46 DC 03/03/20 14:46 100 ML Ondansetron HCl 4 mg ONCE ONCE IVP 03/03/20 14:00 03/03/20 14:01 DC 03/03/20 14:00 4 MG Promethazine HCl 25 mg ONCE ONCE IVP 03/03/20 15:45 03/03/20 15:46 DC 03/03/20 15:43 25 MG Sodium Chloride 10 ml NEEDED PRN IV 03/03/20 14:45 03/03/20 14:47 10 ML Sodium Chloride 100 ml ONCE ONCE IV 03/03/20 14:45 03/03/20 14:46 DC 03/03/20 14:47 80 ML Vital Signs/I&O 03/03/20 13:25 Temp 36.4 Pulse 80 Resp 20 B/P (MAP) 143/67 (92) Pulse Ox 96 Blood Pressure Mean: 92 Progress Progress Note : Time: 15:48 Progress Note Discussed case with Dr. Thakkar he agrees with plans for admission. He recommends giving Dilaudid 0.5 mg every 2 hours LR at 150 an hour and nausea medication. Patient agrees with plans for admission and plan of care. Departure Communication (Admissions) Time/Spoke to Admitting Phy: 15:48 Dr. Thakkar Impression Primary Impression: Acute pancreatitis Disposition: ADMITTED INPATIENT Condition: Stable/Unchanged Admissions Decision to Admit Reason: Admit from ER (General) Decision to Admit/Date: Mar 03, 2020 Time/Decision to Admit Time: 15:48 Departure-Patient Inst. Referrals: [facility] (PCP) Primary Care Physician FLORIDALMA,LOCAL PHYSICIAN (Family) Primary Care Physician ELAN HEARN Mar 03, 2020 15:51
[2020-03-03 16:33] VITALS: BP 163/90
[2020-03-03] MEDS: LACTATED RINGERS 1,000 ML IV SCH ×2 (16:53→22:09)
[2020-03-03] MEDS: ONDANSETRON 4 MG/2 ML (SDV) Z0FRAN IV PRN ×2 (17:47→22:09)
[2020-03-03] MEDS: HYDROmorphone 2 MG/ML VIAL (DILAUDID) IV PRN ×3 (17:47→22:09)
[2020-03-03 18:28] LABS: BILIRUBIN,URINE NEGATIVE (NEGATIVE); CLARITY,URINE CLEAR; COLOR,URINE YELLOW; GLUCOSE, URINE (UA) NEGATIVE (NEGATIVE); KETONES,URINE NEGATIVE (NEGATIVE); LEUKOCYTE ESTERASE ,URINE NEGATIVE (NEGATIVE); NITRITE,URINE NEGATIVE (NEGATIVE); PROTEIN,URINE NEGATIVE (NEGATIVE)
[2020-03-03 18:35] LABS: BACTERIA,URINE NEGATIVE /HPF; SQUAMOUS EPITHELIAL CELL,UR RARE /HPF
[2020-03-03 18:37] LABS: AMPHETAMINE SCREEN, URINE NEGATIVE (NEGATIVE); BARBITURATE SCREEN URINE NEGATIVE (NEGATIVE); BENZODIAZEPINES SCREEN URINE NEGATIVE (NEGATIVE); CANNABINOID SCREEN, URINE NEGATIVE (NEGATIVE); COCAINE SCREEN URINE NEGATIVE (NEGATIVE); METHADONE STAT NEGATIVE (NEGATIVE); METHAMPHETAMINE SCREEN URINE S NEGATIVE (NEGATIVE); OPIATE SCREEN URINE POSITIVE (NEGATIVE); OXYCODONE STAT NEGATIVE (NEGATIVE); PROPOXYPHENE STAT NEGATIVE (NEGATIVE); TRICYCLIC ANTIDEPRESSANTS SCRE NEGATIVE (NEGATIVE)
[2020-03-03 19:41] VITALS: BP 112/71
[2020-03-04 00:12] VITALS: BP 134/86
[2020-03-04] MEDS: HYDROmorphone 2 MG/ML VIAL (DILAUDID) IV PRN ×7 (00:16→23:24)
[2020-03-04] MEDS: LACTATED RINGERS 1,000 ML IV SCH ×2 (04:54→11:02)
[2020-03-04 06:16] LABS: BASOPHILS % (AUTO) 0 % (0-10); EOSINOPHILS # (AUTO) 0.1 10^3/uL (0.0-0.3); EOSINOPHILS % (AUTO) 1 % (0-10); HEMATOCRIT 42 % (40-54); LYMPHOCYTES # (AUTO) 1.9 X 10^3 (1.0-4.0); LYMPHOCYTES % (AUTO) 17 % (12-44); MEAN CORPUSCULAR HEMOGLOBIN 30 PG (25-34); MEAN CORPUSCULAR HGB CONC 36 G/DL (32-36); MEAN CORPUSCULAR VOLUME 84 FL (80-99); MEAN PLATELET VOLUME 10.8 FL (7.4-10.4); MONOCYTES # (AUTO) 0.9 X 10^3 (0.0-1.0); MONOCYTES % (AUTO) 8 % (0-12); NEUTROPHILS # (AUTO) 8.5 X 10^3 (1.8-7.8); NEUTROPHILS % (AUTO) 74 % (42-75); PLATELET COUNT 223 10^3/uL (130-400); RED CELL DISTRIBUTION WIDTH 13.1 % (10.0-14.5); WHITE BLOOD COUNT 11.5 10^3/uL (4.3-11.0)
[2020-03-04 06:39] LABS: ALANINE AMINOTRANSFERASE 26 U/L (0-55); ALKALINE PHOSPHATASE 75 U/L (40-136); BILIRUBIN,TOTAL 0.7 MG/DL (0.1-1.0); BUN/CREATININE RATIO 8; CALCIUM 8.9 MG/DL (8.5-10.1); CARBON DIOXIDE 22 MMOL/L (21-32); CHLORIDE 105 MMOL/L (98-107); CREATININE SERUM 0.79 MG/DL (0.60-1.30); GFR ESTIMATED > 60; GLUCOSE 109 MG/DL (70-105); POTASSIUM 3.8 MMOL/L (3.6-5.0); SODIUM 142 MMOL/L (135-145); TOTAL PROTEIN 6.1 GM/DL (6.4-8.2)
[2020-03-04 08:31] VITALS: BP 125/72
[2020-03-04] MEDS ORDERED: OMEP-254 PO (11:18)
[2020-03-04] MEDS ORDERED: MULT-1030 PO (11:18)
--- NOTE | 2020-03-04 12:16 | History & Physical-Hospitalist ---
History of Present Illness HPI/Chief Complaint Shabbir Davis is a 30-year-old male with past medical history of alcohol abuse and pancreatitis who presented to with epigastric abdominal pain. He reports that the pain started yesterday and was sharp and stabbing and radiated to his back. He has not drank alcohol for the past couple years. He denies any fevers or chills. He denies any shortness of breath or cough. He denies any chest pain. He denies any nausea or vomiting. He denies any diarrhea. He takes a multivitamin and omeprazole daily. Source: patient Exam Limitations: no limitations Date Seen 03/04/20 Time Seen by a Provider: 09:50 Attending Physician Annita Ahuja MD PCP No,Local Physician Referring Physician Date of Admission Mar 03, 2020 at 15:51 Home Medications & Allergies Home Medications Reviewed patient Home Medication Reconciliation performed by pharmacy medication reconciliations residential air sealing technician and/or nursing. Patients Allergies have been reviewed. Allergies Allergies Coded Allergies cefpodoxime (Verified Allergy, Unknown, 10/11/14) Told allergic when he was a child. Reaction unknown. codeine (Verified Adverse Reaction, Mild, NAUSEA/VOMITING, 06/21/17) Past Wjeqzrj-Zhnool-Xzudyp Hx Past Med/Social Hx: Reviewed Nursing Past Med/Soc Hx Patient Social History Alcohol Use: Past History Number of Drinks Today: AA Alcohol Beverage of Choice: Beer Recreational Drug Use: No Type Used: Cigarettes 2nd Hand Smoke Exposure: Yes Recent Foreign Travel: No Contact w/other who traveled: No Recent Hopitalizations: No Recent Infectious Disease Expo: No Immunizations Up To Date Tetanus Booster (TDap): Unknown Pediatric: No Seasonal Allergies Seasonal Allergies: No Past Medical History Surgeries: Orthopedic Reproductive: No Sexually Transmitted Disease: No HIV/AIDS: No Genitourinary: Kidney Stones Gastrointestinal: Gastroesophageal Reflux, Pancreatitis Musculoskeletal: Fractures Did You Recieve Any Treatments: No Psychosocial: ADD/ADHD, Anxiety History of Blood Disorders: No Adverse Reaction to Blood Day: No Family History Reviewed Nursing Family Hx Completed stroke Grandmother Coronary thrombosis Grandmother Pancreatitis No Pertinent Family Hx Review of Systems Constitutional: no symptoms reported EENTM: no symptoms reported Respiratory: no symptoms reported Cardiovascular: no symptoms reported Gastrointestinal: abdominal pain Genitourinary: no symptoms reported Musculoskeletal: no symptoms reported Skin: no symptoms reported Psychiatric/Neurological: No Symptoms Reported Physical Exam Physical Exam Vital Signs Vital Signs - First Documented 03/03/20 03/03/20 13:25 16:20 Temp 36.4 Pulse 80 Resp 20 B/P (MAP) 143/67 (92) Pulse Ox 96 O2 Delivery Room Air Capillary Refill : Less Than 3 Seconds Height, Weight, BMI Height: 5'5.00" Weight: 180lbs. 0.0oz. 81.521562my; 28.10 BMI Method:Stated General Appearance: No Apparent Distress, WD/WN HEENT: PERRL/EOMI, Pharynx Normal Neck: Normal Inspection, Supple Respiratory: Lungs Clear, Normal Breath Sounds, No Respiratory Distress Cardiovascular: Regular Rate, Rhythm, No Edema, No Murmur Gastrointestinal: Normal Bowel Sounds, Soft, Tenderness (Epigastric) Extremity: Normal Inspection, Non Tender, No Pedal Edema Neurologic/Psychiatric: Alert, Oriented x3, No Motor/Sensory Deficits, Normal Mood/Affect Skin: Normal Color, Warm/Dry Results Results/Procedures Labs Laboratory Tests 03/03/20 13:38 03/04/20 05:15 Patient resulted labs reviewed. Imaging: Reviewed Imaging Report Assessment/Plan Admission Diagnosis Acute pancreatitis Admission Status: Inpatient Order (span 2 midnights) Reason for Inpatient Admission: Pancreatitis requiring further monitoring and treatment Assessment and Plan Acute pancreatitis Epigastric abdominal pain, elevated lipase, CT evidence of acute pancreatitis CT showed peripancreatic inflammation, normal gallbladder Nothing by mouth Pain regimen ordered IV fluids Add on triglyceride level Obtain gallbladder ultrasound to evaluate for cholelithiasis History of alcohol abuse Alcohol level negative on arrival LFTs normal Reportedly no alcohol use in the past couple years DVT prophylaxis: Ambulation Diagnosis/Problems Diagnosis/Problems (1) Acute pancreatitis Status: Acute Qualifiers: Pancreatitis type: unspecified pancreatitis type Acute pancreatitis co mplication: no infection or necrosis Qualified Codes: K85.90 - Acute pancreatitis without necrosis or infection, unspecified Clinical Quality Measures DVT/VTE Risk/Contraindication: Risk Factor Score Per Nursin RFS Level Per Nursing on Admit: 1=Low/No VTE PPX ANNITA AHUJA MD Mar 04, 2020 12:16
[2020-03-04 15:38] VITALS: BP 125/88
[2020-03-05 00:36] VITALS: BP 118/78
[2020-03-05] MEDS: HYDROmorphone 2 MG/ML VIAL (DILAUDID) IV PRN (06:31)
[2020-03-05] MEDS ORDERED: ACETAMINOPHEN 325 MG TABLET PO PRN (08:30)
[2020-03-05 08:37] VITALS: BP 118/81
--- NOTE | 2020-03-05 10:16 | Diagnostic Imaging Report ---
PROCEDURE: US Gallbladder. TECHNIQUE: Multiple real-time grayscale images were obtained over the right upper quadrant in various projections. INDICATION: Pancreatitis. The liver measures 13 cm in size. No discrete liver mass is detected. There is some mild increased echogenicity consistent with hepatic steatosis. Portal vein is patent and shows normal direction of flow. Gallbladder is without stones or sludge. No wall thickening or biliary ductal dilatation is identified. Pancreas is obscured by bowel gas. Aorta is obscured. IVC is patent. Right kidney is without evidence of calculi or hydronephrosis. There is no ascites. IMPRESSION: 1. Mild hepatic steatosis. 2. No evidence of cholelithiasis or acute cholecystitis. 3. Pancreas was obscured by bowel gas. Dictated by: Dictated on workstation # [id number]
[2020-03-05] MEDS ORDERED: OXYC1TAB87 PO (11:54)
[2020-03-05 13:36] VITALS: BP 118/81
--- NOTE | 2020-03-05 14:18 | Discharge Summary ---
Discharge Summary Hospital Course Was the Problem List Reviewed?: Yes Problems/Dx: (1) Acute pancreatitis Status: Acute Qualifiers: Qualified Codes: K85.90 - Acute pancreatitis without necrosis or infection, unspecified Hospital Course Date of Admission: Mar 03, 2020 at 15:51 Admission Diagnosis : acute pancreatitis Family Physician/Provider: Arina,Local Physician Date of Discharge: 03/05/20 Discharge Diagnosis: acute pancreatitis Hospital Course: Shabbir Davis is a 30-year-old male who was admitted with acute pancreatitis. He has a history of alcohol abuse but has not drank alcohol for the past couple years. He was treated with IV fluids, pain medications, and nothing by mouth. His symptoms improved quickly. His diet was advanced and he tolerated this well. He was evaluated with an ultrasound of his gallbladder which showed no stones. He was discharged home in stable condition. He needs to establish care with a primary care physician. Labs and Pending Lab Test: Home Meds Active Percocet 5-325 mg Tablet (Oxycodone HCl/Acetaminophen) 1 Each Tablet 1 Tab PO Q4H MDD 6 TABS 7 Days Reported Centrum Men's Tablet (Multivits,Ca,Min/Iron/FA/Lycop) 1 Each Tablet 1 Each PO DAILY Omeprazole Magnesium 20 Mg Capsule.dr 20 Mg PO DAILY Assessment/Pt Instructions Take medications as prescribed. Establish care with a primary care physician. Return with worsening abdominal pain. Discharge Planning: <30 minutes discharge planning Discharge Instructions Discharge Diet: No Restrictions Activity as Tolerated: Yes Discharge Physical Examination Vital Signs Vital Signs Date Time Temp Pulse Resp B/P (MAP) Pulse Ox O2 Delivery O2 Flow Rate FiO2 03/05/20 13:36 36.9 90 16 118/81 99 Room Air General Appearance: No Apparent Distress, WD/WN HEENT: PERRL/EOMI, Pharynx Normal Respiratory: Lungs Clear, Normal Breath Sounds, No Respiratory Distress Cardiovascular: Regular Rate, Rhythm, No Edema, No Murmur Gastrointestinal: Normal Bowel Sounds, Soft, Tenderness (epigastric) Extremity: Normal Inspection, Non Tender, No Pedal Edema Skin: Normal Color, Warm/Dry Neurologic/Psychiatric: Alert, Oriented x3, No Motor/Sensory Deficits, Normal Mood/Affect Allergies: Coded Allergies: cefpodoxime (Verified Allergy, Unknown, 10/11/14) Told allergic when he was a child. Reaction unknown. codeine (Verified Adverse Reaction, Mild, NAUSEA/VOMITING, 06/21/17) Discharge Summary Date of Admission Mar 03, 2020 at 15:51 Date of Discharge Mar 05, 2020 at 13:25 Discharge Date: Mar 05, 2020 Discharge Time: 13:25 Admission Diagnosis Acute pancreatitis Discharge Diagnosis Acute pancreatitis (1) Acute pancreatitis Status: Acute Qualifiers: Qualified Codes: K85.90 - Acute pancreatitis without necrosis or infection, unspecified Clinical Quality Measures DVT/VTE Risk/Contraindication: Risk Factor Score Per Nursin RFS Level Per Nursing on Admit: 1=Low/No VTE PPX TONIA AHUJA MD Mar 05, 2020 14:18
--- OUTSIDE RECORDS SUMMARY | 2020-03-06 14:35 | XMS REPORT | Continuity of Care Document ---
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 protein [...] mm/hr 0-9 Complete blood count (CBC) with automate d white blood cell (WBC) differential - 12/01/16 17:50 Blood leukocytes automated count (number/volume) 7.9 10*3/uL 4.3-11.0 Blood erythrocytes automated count (number/volume) 5.38 10*6/uL 4.35-5.85 Venous blood hemoglobin measurement (mass/volume) 17.2 g/dL 13.3-17.7 Blood hematocrit (volume fraction) 47 % 40-54 Automated erythrocyte mean corpuscular volume 88 [ foz_us] 80-99 Automated erythrocyte mean corpuscular h emoglobin (mass per erythrocyte) 32 pg 25-34 Automated erythrocyte mean corpuscular h emoglobin concentration measurement (mass/volume) 36 g/dL 32-36 Automated erythrocyte distribution width ratio 12. 4 % 10.0- 14.5 Automated blood platelet count (count/volume) 242 10*3/uL [...] 10*3 1.0-4.0 Blood monocytes automated count (number/volume) 0. 5 10*3 0.0-1.0 Automated eosinophil count 0.1 10*3/uL 0 .0-0.3 Automated blood basophil count (count/volume) 0.1 10*3/uL 0.0-0.1 Comprehensive metabolic panel - 12/01/16 17:50 Serum or plasma sodium measurement (moles/volume) 141 mmol/L 135-145 Serum or plasma potassium measurement (moles/volume) 4.1 mmol/L 3.6-5.0 Serum or plasma chloride measurement (moles/volume) 105 mmol/L 98-107 Carbon dioxide 26 mmol/L 21-32 Serum or plasma anion gap determination (moles/volume) 10 mmol/L 5-14 Serum or plasma urea nitrogen measurement (mass/volume ) 9 mg/dL 7-18 Serum or plasma creatinine measurement (mass/volume) 0.92 mg/dL 0.60-1.30 Serum or plasma urea nitrogen/creatinine mass ratio 10 NRG Serum or plasma creatinine measurement w ith calculation of estimated glomerular filtration rate > NRG Serum or plasma glucose measurement (mass/volume) 110 mg/dL 70-105 Serum or plasma calcium measurement (mass/volume) 9.8 mg/dL 8.5-10.1 Serum or plasma total bilirubin measurement (mass/volu me) 0.8 mg/dL 0.1-1.0 Serum or plasma alkaline phosphatase farheen surement (enzymatic activity/volume) 102 U/L 40-136 Serum or plasma aspartate aminotransfera se measurement (enzymatic activity/volume) 28 U/L 5-34 Serum or plasma alanine aminotransferase measurement (enzymatic activity/volume) 35 U/L 0-55 Serum or plasma protein [...] Negative Urine-Blood Negative Negative Urine-Color Yellow Colorless-[place] ow Urine-Glucose Negative Negative Urine-Ketones Negative Negative Urine-Leukocytes Negative Negative Urine-Mucus 3+ Urine-Nitrite Negative Negative Urine-Other Urine Saved if Culture Need ed (48hrs from time of collection) Urine-pH 6.0 5-8.5 Urine-Protein 1+ Negative Urine-RBC Negative Urine-Specific [place] >=1.030 1.000-1 .030 Urine-WBC 0-2/HPF Urobilinogen 0.2 E.U./dL 0.2-1.0 Amylase - 12/26/16 07:00 Amylase 323 U/L 20-100 Urinalysis - 12/26/16 08:04 Icotest N/A Negative Urine Volume Urine Volume Sufficient (10mL) Urine Yeast No Yeast present Urine-Appearance Clear Clear Urine-Bacteria Negative Urine-Bilirubin Negative Negative Urine-Blood Negative Negative Urine-Color Yellow Colorless-[place] Urine-Glucose Negative Negative Urine-Ketones 2+ Negative Urine-Leukocytes Negative Negative Urine-Nitrite Negative Negative Urine-Other Urine Saved if Culture Need ed (48hrs from time of collection) Urine-pH 7.5 5-8.5 Urine-Protein Negative Negative Urine-RBC Negative Urine-Specific [place] 1.015 1.000-1 .030 Urine-WBC Nothing Seen on Microscopic Urobilinogen 1.0 [...] mIU/L 0.40-4.50 Complete blood count (CBC) with automate d white blood cell (WBC) differential - 06/19/17 18:25 Blood leukocytes automated count (number/volume) 13.0 10*3/uL 4.3-11.0 Blood erythrocytes automated count (number/volume) 5.40 10*6/uL 4.35-5.85 Venous blood hemoglobin measurement (mass/volume) 16.8 g/dL 13.3-17.7 Blood hematocrit (volume fraction) 46 % 40-54 Automated erythrocyte mean corpuscular volume 86 [ foz_us] 80-99 Automated erythrocyte mean corpuscular h emoglobin (mass per erythrocyte) 31 pg 25-34 Automated erythrocyte mean corpuscular h emoglobin concentration measurement (mass/volume) 36 g/dL 32-36 Automated erythrocyte distribution width ratio 12. 7 % 10.0- 14.5 Automated blood platelet count (count/volume) 237 10*3/uL [...] 10*3 1.0-4.0 Blood monocytes automated count (number/volume) 0. 9 10*3 0.0-1.0 Automated eosinophil count 0.1 10*3/uL 0 .0-0.3 Automated blood basophil count (count/volume) 0.0 10*3/uL 0.0-0.1 Comprehensive metabolic panel - 06/19/17 18:25 Serum or plasma sodium measurement (moles/volume) 141 mmol/L 135-145 Serum or plasma potassium measurement (moles/volume) 3.3 mmol/L 3.6-5.0 Serum or plasma chloride measurement (moles/volume) 104 mmol/L 98-107 Carbon dioxide 23 mmol/L 21-32 Serum or plasma anion gap determination (moles/volume) 14 mmol/L 5-14 Serum or plasma urea nitrogen measurement (mass/volume ) 10 mg/dL 7-18 Serum or plasma creatinine measurement (mass/volume) 1.02 mg/dL 0.60-1.30 Serum or plasma urea nitrogen/creatinine mass ratio 10 NRG Serum or plasma creatinine measurement w ith calculation of estimated glomerular filtration rate > NRG Serum or plasma glucose measurement (mass/volume) 104 mg/dL 70-105 Serum or plasma calcium measurement (mass/volume) 9.4 mg/dL 8.5-10.1 Serum or plasma total bilirubin measurement (mass/volu me) 1.0 mg/dL 0.1-1.0 Serum or plasma alkaline phosphatase farheen surement (enzymatic activity/volume) 115 U/L 40-136 Serum or plasma aspartate aminotransfera se measurement (enzymatic activity/volume) 27 U/L 5-34 Serum or plasma alanine aminotransferase measurement (enzymatic activity/volume) 51 U/L 0-55 Serum or plasma protein measurement (mass/volume) 7.0 g/dL 6.4-8.2 Serum or plasma albumin measurement (mass/volume) 4.3 g/dL 3.2-4.5 Serum or plasma amylase measurement (enz ymatic activity/volume) - 06/19/17 18:25 Serum or plasma amylase measurement (enzymatic activit y/volume) 74 U/L 25-125 Lipase - 06/19/17 18:25 Lipase 220 U/L 8-78 Serum or plasma ethanol measurement (mas s/volume) - 06/19/17 18:25 Serum or plasma ethanol measurement (mass/volume) < mg/dL <10 Urine drug screening test - 06/19/17 20: 15 Urine phencyclidine detection by screening method NEGATIVE NEGATIVE Urine benzodiazepines detection by screening method POSITIVE NEGATIVE Urine cocaine detection NEGATIVE NEGATI VE Urine amphetamines detection by screening method N EGATIVE NEGATIVE Urine methamphetamine detection by screening method NEGATIVE NEGATIVE Urine cannabinoids detection by screening method N EGATIVE NEGATIVE Urine opiates detection by screening method NEGATI VE NEGATIVE Urine barbiturates detection NEGATIVE N EGATIVE Screening urine tricyclic antidepressants detection NEGATIVE NEGATIVE Urine methadone detection by screening method NEGA TIVE NEGATIVE Urine oxycodone detection NEGATIVE NEGA TIVE Urine propoxyphene detection NEGATIVE N EGATIVE Complete blood count (CBC) with automate d white blood cell (WBC) differential - 06/20/17 09:20 Blood leukocytes automated count (number/volume) 12.7 10*3/uL 4.3-11.0 Blood erythrocytes automated count (number/volume) 5.29 10*6/uL 4.35-5.85 Venous blood hemoglobin measurement (mass/volume) 16.7 g/dL 13.3-17.7 Blood hematocrit (volume fraction) 45 % 40-54 Automated erythrocyte mean corpuscular volume 85 [ foz_us] 80-99 Automated erythrocyte mean corpuscular h emoglobin (mass per erythrocyte) 32 pg 25-34 Automated erythrocyte mean corpuscular h emoglobin concentration measurement (mass/volume) 37 g/dL 32-36 Automated erythrocyte distribution width ratio 12. 5 % 10.0- 14.5 Automated blood platelet count (count/volume) 238 10*3/uL [...] 10*3 1.0-4.0 Blood monocytes automated count (number/volume) 0. 6 10*3 0.0-1.0 Automated eosinophil count 0.0 10*3/uL 0 .0-0.3 Automated blood basophil count (count/volume) 0.0 10*3/uL 0.0-0.1 Comprehensive metabolic panel - 06/20/17 09:20 Serum or plasma sodium measurement (moles/volume) 139 mmol/L 135-145 Serum or plasma potassium measurement (moles/volume) 3.8 mmol/L 3.6-5.0 Serum or plasma chloride measurement (moles/volume) 105 mmol/L 98-107 Carbon dioxide 22 mmol/L 21-32 Serum or plasma anion gap determination (moles/volume) 12 mmol/L 5-14 Serum or plasma urea nitrogen measurement (mass/volume ) 11 mg/dL 7-18 Serum or plasma creatinine measurement (mass/volume) 0.86 mg/dL 0.60-1.30 Serum or plasma urea nitrogen/creatinine mass ratio 13 NRG Serum or plasma creatinine measurement w ith calculation of estimated glomerular filtration rate > NRG Serum or plasma glucose measurement (mass/volume) 135 mg/dL 70-105 Serum or plasma calcium measurement (mass/volume) 9.3 mg/dL 8.5-10.1 Serum or plasma total bilirubin measurement (mass/volu me) 1.5 mg/dL 0.1-1.0 Serum or plasma alkaline phosphatase farheen surement (enzymatic activity/volume) 142 U/L 40-136 Serum or plasma aspartate aminotransfera se measurement (enzymatic activity/volume) 20 U/L 5-34 Serum or plasma alanine aminotransferase measurement (enzymatic activity/volume) 43 U/L 0-55 Serum or plasma protein measurement (mass/volume) 6.8 g/dL 6.4-8.2 Serum or plasma albumin measurement (mass/volume) 4.1 g/dL 3.2-4.5 Serum or plasma amylase measurement (enz ymatic activity/volume) - 06/20/17 09:20 Serum or plasma amylase measurement (enzymatic activit y/volume) 452 U/L 25-125 Lipase - 06/20/17 09:20 Lipase 1056 U/L 8-78 Serum or plasma ethanol measurement (mas s/volume) - 06/20/17 09:20 Serum or plasma ethanol measurement (mass/volume) < mg/dL <10 Blood manual differential performed dete ction - 06/20/17 09:20 Blood monocytes/100 leukocytes 3 % NRG Manual blood segmented neutrophils/100 leukocytes 90 % NRG Blood band neutrophils/100 leukocytes 2 % NRG Manual blood lymphocytes/100 leukocytes 5 % NRG Manual eosinophils/100 leukocytes in nose 0 % NRG Blood toxic granules detection by light microscopy 1+ NRG Lipase - 06/20/17 13:50 Lipase 807 U/L 8-78 Complete blood count (CBC) with automate d white blood cell (WBC) differential - 06/21/17 05:34 Blood leukocytes automated count (number/volume) 11.5 10*3/uL 4.3-11.0 Blood erythrocytes automated count (number/volume) 5.03 10*6/uL 4.35-5.85 Venous blood hemoglobin measurement (mass/volume) 15.8 g/dL 13.3-17.7 Blood hematocrit (volume fraction) 43 % 40-54 Automated erythrocyte mean corpuscular volume 86 [ foz_us] 80-99 Automated erythrocyte mean corpuscular h emoglobin (mass per erythrocyte) 31 pg 25-34 Automated erythrocyte mean corpuscular h emoglobin concentration measurement (mass/volume) 37 g/dL 32-36 Automated erythrocyte distribution width ratio 12. 6 % 10.0- 14.5 Automated blood platelet count (count/volume) 212 10*3/uL [...] 10*3 1.0-4.0 Blood monocytes automated count (number/volume) 0. 9 10*3 0.0-1.0 Automated eosinophil count 0.1 10*3/uL 0 .0-0.3 Automated blood basophil count (count/volume) 0.0 10*3/uL 0.0-0.1 Comprehensive metabolic panel - 06/21/17 05:34 Serum or plasma sodium measurement (moles/volume) 141 mmol/L 135-145 Serum or plasma potassium measurement (moles/volume) 3.9 mmol/L 3.6-5.0 Serum or plasma chloride measurement (moles/volume) 107 mmol/L 98-107 Carbon dioxide 24 mmol/L 21-32 Serum or plasma anion gap determination (moles/volume) 10 mmol/L 5-14 Serum or plasma urea nitrogen measurement (mass/volume ) 7 mg/dL 7-18 Serum or plasma creatinine measurement (mass/volume) 0.90 mg/dL 0.60-1.30 Serum or plasma urea nitrogen/creatinine mass ratio 8 NRG Serum or plasma creatinine measurement w ith calculation of estimated glomerular filtration rate > NRG Serum or plasma glucose measurement (mass/volume) 133 mg/dL 70-105 Serum or plasma calcium measurement (mass/volume) 9.3 mg/dL 8.5-10.1 Serum or plasma total bilirubin measurement (mass/volu me) 1.1 mg/dL 0.1-1.0 Serum or plasma alkaline phosphatase farheen surement (enzymatic activity/volume) 116 U/L 40-136 Serum or plasma aspartate aminotransfera se measurement (enzymatic activity/volume) 15 U/L 5-34 Serum or plasma alanine aminotransferase measurement (enzymatic activity/volume) 25 U/L 0-55 Serum or plasma protein measurement (mass/volume) 6.5 g/dL 6.4-8.2 Serum or plasma albumin measurement (mass/volume) 3.7 g/dL 3.2-4.5 Lipase - 06/21/17 05:34 Lipase 639 U/L 8-78 AMYLASE - 07/03/17 16:46 AMYLASE 16 U/L 21-101 Complete blood count (CBC) with automate d white blood cell (WBC) differential - 07/09/17 20:15 Blood leukocytes automated count (number/volume) 8.9 10*3/uL 4.3-11.0 Blood erythrocytes automated count (number/volume) 5.62 10*6/uL 4.35-5.85 Venous blood hemoglobin measurement (mass/volume) 17.5 g/dL 13.3-17.7 Blood hematocrit (volume fraction) 48 % 40-54 Automated erythrocyte mean corpuscular volume 86 [ foz_us] 80-99 Automated erythrocyte mean corpuscular h emoglobin (mass per erythrocyte) 31 pg 25-34 Automated erythrocyte mean corpuscular h emoglobin concentration measurement (mass/volume) 36 g/dL 32-36 Automated erythrocyte distribution width ratio 12. 5 % 10.0- 14.5 Automated blood platelet count (count/volume) 312 10*3/uL [...] 10*3 1.0-4.0 Blood monocytes automated count (number/volume) 0. 4 10*3 0.0-1.0 Automated eosinophil count 0.1 10*3/uL 0 .0-0.3 Automated blood basophil count (count/volume) 0.1 10*3/uL 0.0-0.1 Comprehensive metabolic panel - 07/09/17 20:15 Serum or plasma sodium measurement (moles/volume) 146 mmol/L 135-145 Serum or plasma potassium measurement (moles/volume) 3.9 mmol/L 3.6-5.0 Serum or plasma chloride measurement (moles/volume) 106 mmol/L 98-107 Carbon dioxide 24 mmol/L 21-32 Serum or plasma anion gap determination (moles/volume) 16 mmol/L 5-14 Serum or plasma urea nitrogen measurement (mass/volume ) 7 mg/dL 7-18 Serum or plasma creatinine measurement (mass/volume) 0.95 mg/dL 0.60-1.30 Serum or plasma urea nitrogen/creatinine mass ratio 7 NRG Serum or plasma creatinine measurement w ith calculation of estimated glomerular filtration rate > NRG Serum or plasma glucose measurement (mass/volume) 135 mg/dL 70-105 Serum or plasma calcium measurement (mass/volume) 9.0 mg/dL 8.5-10.1 Serum or plasma total bilirubin measurement (mass/volu me) 0.3 mg/dL 0.1-1.0 Serum or plasma alkaline phosphatase farheen surement (enzymatic activity/volume) 118 U/L 40-136 Serum or plasma aspartate aminotransfera se measurement (enzymatic activity/volume) 38 U/L 5-34 Serum or plasma alanine aminotransferase measurement (enzymatic activity/volume) 45 U/L 0-55 Serum or plasma protein measurement (mass/volume) 7.8 g/dL 6.4-8.2 Serum or plasma albumin measurement (mass/volume) 4.6 g/dL 3.2-4.5 Serum or plasma ethanol measurement (mas s/volume) - 07/09/17 20:15 Serum or plasma ethanol measurement (mass/volume) 243 mg/dL <10 Whole blood hemoglobin and hematocrit pa chiara - 07/10/17 05:44 Venous blood hemoglobin measurement (mass/volume) 15.6 g/dL 13.3-17.7 Blood hematocrit (volume fraction) 44 % 40-54 Whole blood hemoglobin and hematocrit pa chiara - 07/11/17 06:00 Venous blood hemoglobin measurement (mass/volume) 14.8 g/dL 13.3-17.7 Blood hematocrit (volume fraction) 42 % 40-54 Complete blood count (CBC) with automate d white blood cell (WBC) differential - 08/10/17 10:07 Blood leukocytes automated count (number/volume) 7.8 10*3/uL 4.3-11.0 Blood erythrocytes automated count (number/volume) 5.53 10*6/uL 4.35-5.85 Venous blood hemoglobin measurement (mass/volume) 17.2 g/dL 13.3-17.7 Blood hematocrit (volume fraction) 46 % 40-54 Automated erythrocyte mean corpuscular volume 84 [ foz_us] 80-99 Automated erythrocyte mean corpuscular h emoglobin (mass per erythrocyte) 31 pg 25-34 Automated erythrocyte mean corpuscular h emoglobin concentration measurement (mass/volume) 37 g/dL 32-36 Automated erythrocyte distribution width ratio 12. 2 % 10.0- 14.5 Automated blood platelet count (count/volume) 249 10*3/uL [...] 10*3 1.0-4.0 Blood monocytes automated count (number/volume) 0. 6 10*3 0.0-1.0 Automated eosinophil count 0.1 10*3/uL 0 .0-0.3 Automated blood basophil count (count/volume) 0.0 10*3/uL 0.0-0.1 Comprehensive metabolic panel - 08/10/17 10:07 Serum or plasma sodium measurement (moles/volume) 140 mmol/L 135-145 Serum or plasma potassium measurement (moles/volume) 3.3 mmol/L 3.6-5.0 Serum or plasma chloride measurement (moles/volume) 103 mmol/L 98-107 Carbon dioxide 21 mmol/L 21-32 Serum or plasma anion gap determination (moles/volume) 16 mmol/L 5-14 Serum or plasma urea nitrogen measurement (mass/volume ) 14 mg/dL 7-18 Serum or plasma creatinine measurement (mass/volume) 0.98 mg/dL 0.60-1.30 Serum or plasma urea nitrogen/creatinine mass ratio 14 NRG Serum or plasma creatinine measurement w ith calculation of estimated glomerular filtration rate > NRG Serum or plasma glucose measurement (mass/volume) 104 mg/dL 70-105 Serum or plasma calcium measurement (mass/volume) 10.3 mg/dL 8.5-10.1 Serum or plasma total bilirubin measurement (mass/volu me) 1.2 mg/dL 0.1-1.0 Serum or plasma alkaline phosphatase farheen surement (enzymatic activity/volume) 105 U/L 40-136 Serum or plasma aspartate aminotransfera se measurement (enzymatic activity/volume) 14 U/L 5-34 Serum or plasma alanine aminotransferase measurement (enzymatic activity/volume) 16 U/L 0-55 Serum or plasma protein measurement (mass/volume) 8.0 g/dL 6.4-8.2 Serum or plasma albumin measurement (mass/volume) 5.2 g/dL 3.2-4.5 Influenza virus A and B antigen detectio n - 08/10/17 11:45 FLU RESULT NEGATIVE FOR INFLUENZA A AND B ANTIGENS BY IA NR Complete blood count (CBC) with automate d white blood cell (WBC) differential - 06/24/18 18:38 Blood leukocytes automated count (number/volume) 9.2 10*3/uL 4.3-11.0 Blood erythrocytes automated count (number/volume) 5.39 10*6/uL 4.35-5.85 Venous blood hemoglobin measurement (mass/volume) 16.6 g/dL 13.3-17.7 Blood hematocrit (volume fraction) 44 % 40-54 Automated erythrocyte mean corpuscular volume 82 [ foz_us] 80-99 Automated erythrocyte mean corpuscular h emoglobin (mass per erythrocyte) 31 pg 25-34 Automated erythrocyte mean corpuscular h emoglobin concentration measurement (mass/volume) 38 g/dL 32-36 Automated erythrocyte distribution width ratio 12. 6 % 10.0- 14.5 Automated blood platelet count (count/volume) 244 10*3/uL [...] 10*3 1.0-4.0 Blood monocytes automated count (number/volume) 0. 5 10*3 0.0-1.0 Automated eosinophil count 0.2 10*3/uL 0 .0-0.3 Automated blood basophil count (count/volume) 0.0 10*3/uL 0.0-0.1 Whole blood basic metabolic panel - 06/01 12/15 18:38 Serum or plasma sodium measurement (moles/volume) 137 mmol/L 135-145 Serum or plasma potassium measurement (moles/volume) 3.3 mmol/L 3.6-5.0 Serum or plasma chloride measurement (moles/volume) 103 mmol/L 98-107 Carbon dioxide 19 mmol/L 21-32 Serum or plasma anion gap determination (moles/volume) 15 mmol/L 5-14 Serum or plasma urea nitrogen measurement (mass/volume ) 17 mg/dL 7-18 Serum or plasma creatinine measurement (mass/volume) 0.97 mg/dL 0.60-1.30 Serum or plasma urea nitrogen/creatinine mass ratio 18 NRG Serum or plasma creatinine measurement w ith calculation of estimated glomerular filtration rate > NRG Serum or plasma glucose measurement (mass/volume) 103 mg/dL 70-105 Serum or plasma calcium measurement (mass/volume) 9.6 mg/dL 8.5-10.1 Complete urinalysis with reflex to cultu re - 06/24/18 19:18 Urine color determination YELLOW NRG Urine clarity determination CLEAR NR G Urine pH measurement by test strip 5 5-9 Specific gravity of urine by test strip 1.020 1.016-1.022 Urine protein assay by test strip, semi-quantitative 3+ NEGATIVE Urine glucose detection by automated test strip NE GATIVE NEGATIVE Erythrocytes detection in urine sediment by light micr oscopy 4+ NEGATIVE Urine ketones detection by automated test strip NE GATIVE NEGATIVE Urine nitrite detection by test strip NEGATIVE NEGATIVE Urine total bilirubin detection by test strip NEGA TIVE NEGATIVE Urine urobilinogen measurement by automated test strip (mass/volume) 1 mg/dL NORMAL Urine leukocyte esterase detection by dipstick 1+ NEGATIVE Automated urine sediment erythrocyte cou nt by microscopy (number/high power field) [HPF] NRG Automated urine sediment leukocyte count by microscopy (number/high power field) [HPF] NRG Bacteria detection in urine sediment by light microsco py FEW NRG Squamous epithelial cells detection in u rine sediment by light microscopy RARE NRG Crystals detection in urine sediment by light microsco py NONE NRG Casts detection in urine sediment by light microscopy NONE NRG Mucus detection in urine sediment by light microscopy LARGE NRG Complete urinalysis with reflex to culture YES NRG Renal epithelial cells detection in urin e sediment by light microscopy NONE NRG Bacterial urine culture - 06/24/18 19:18 Bacterial urine culture NG NRG Complete blood count (CBC) with automate d white blood cell (WBC) differential - 08/21/18 11:30 Blood leukocytes automated count (number/volume) 10.1 10*3/uL 4.3-11.0 Blood erythrocytes automated count (number/volume) 5.61 10*6/uL 4.35-5.85 Venous blood hemoglobin measurement (mass/volume) 17.0 g/dL 13.3-17.7 Blood hematocrit (volume fraction) 46 % 40-54 Automated erythrocyte mean corpuscular volume 83 [ foz_us] 80-99 Automated erythrocyte mean corpuscular h emoglobin (mass per erythrocyte) 30 pg 25-34 Automated erythrocyte mean corpuscular h emoglobin concentration measurement (mass/volume) 37 g/dL 32-36 Automated erythrocyte distribution width ratio 13. 0 % 10.0- 14.5 Automated blood platelet count (count/volume) 244 10*3/uL [...] 10*3 1.0-4.0 Blood monocytes automated count (number/volume) 0. 6 10*3 0.0-1.0 Automated eosinophil count 0.1 10*3/uL 0 .0-0.3 Automated blood basophil count (count/volume) 0.0 10*3/uL 0.0-0.1 Comprehensive metabolic panel - 08/21/18 11:30 Serum or plasma sodium measurement (moles/volume) 140 mmol/L 135-145 Serum or plasma potassium measurement (moles/volume) 3.9 mmol/L 3.6-5.0 Serum or plasma chloride measurement (moles/volume) 106 mmol/L 98-107 Carbon dioxide 25 mmol/L 21-32 Serum or plasma anion gap determination (moles/volume) 9 mmol/L 5-14 Serum or plasma urea nitrogen measurement (mass/volume ) 14 mg/dL 7-18 Serum or plasma creatinine measurement (mass/volume) 1.03 mg/dL 0.60-1.30 Serum or plasma urea nitrogen/creatinine mass ratio 14 NRG Serum or plasma creatinine measurement w ith calculation of estimated glomerular filtration rate > NRG Serum or plasma glucose measurement (mass/volume) 137 mg/dL 70-105 Serum or plasma calcium measurement (mass/volume) 10.2 mg/dL 8.5-10.1 Serum or plasma total bilirubin measurement (mass/volu me) 0.4 mg/dL 0.1-1.0 Serum or plasma alkaline phosphatase farheen surement (enzymatic activity/volume) 97 U/L 40-136 Serum or plasma aspartate aminotransfera se measurement (enzymatic activity/volume) 18 U/L 5-34 Serum or plasma alanine aminotransferase measurement (enzymatic activity/volume) 20 U/L 0-55 Serum or plasma protein measurement (mass/volume) 7.2 g/dL 6.4-8.2 Serum or plasma albumin measurement (mass/volume) 4.6 g/dL 3.2-4.5 Serum or plasma amylase measurement (enz ymatic activity/volume) - 08/21/18 11:30 Serum or plasma amylase measurement (enzymatic activit y/volume) 24 U/L 25-125 Lipase - 08/21/18 11:30 Lipase 26 U/L 8-78 Serum or plasma ethanol measurement (mas s/volume) - 08/21/18 11:30 Serum or plasma ethanol measurement (mass/volume) < mg/dL <10 Complete urinalysis with reflex to cultu re - 08/21/18 12:47 Urine color determination YELLOW NRG Urine clarity determination SLIGHTLY CLOUDY NRG Urine pH measurement by test strip 7 5-9 Specific gravity of urine by test strip 1.010 1.016-1.022 Urine protein assay by test strip, semi-quantitative NEGATIVE NEGATIVE Urine glucose detection by automated test strip NE GATIVE NEGATIVE Erythrocytes detection in urine sediment by light micr oscopy NEGATIVE NEGATIVE Urine ketones detection by automated test strip NE GATIVE NEGATIVE Urine nitrite detection by test strip NEGATIVE NEGATIVE Urine total bilirubin detection by test strip NEGA TIVE NEGATIVE Urine urobilinogen measurement by automated test strip (mass/volume) NORMAL NORMAL Urine leukocyte esterase detection by dipstick NEG ATIVE NEGATIVE Automated urine sediment erythrocyte cou nt by microscopy (number/high power field) NONE NRG Automated urine sediment leukocyte count by microscopy (number/high power field) RARE NRG Bacteria detection in urine sediment by light microsco py NEGATIVE NRG Squamous epithelial cells detection in u rine sediment by light microscopy RARE NRG Crystals detection in urine sediment by light microsco py NONE NRG Casts detection in urine sediment by light microscopy NONE NRG Mucus detection in urine sediment by light microscopy NEGATIVE NRG Complete urinalysis with reflex to culture NO NRG Urine drug screening test - 08/21/18 12: 47 Urine phencyclidine detection by screening method NEGATIVE NEGATIVE Urine benzodiazepines detection by screening method NEGATIVE NEGATIVE Urine cocaine detection NEGATIVE NEGATI VE Urine amphetamines detection by screening method N EGATIVE NEGATIVE Urine methamphetamine detection by screening method NEGATIVE NEGATIVE Urine cannabinoids detection by screening method N EGATIVE NEGATIVE Urine opiates detection by screening method POSITI VE NEGATIVE Urine barbiturates detection NEGATIVE N EGATIVE Screening urine tricyclic antidepressants detection NEGATIVE NEGATIVE Urine methadone detection by screening method NEGA TIVE NEGATIVE Urine oxycodone detection NEGATIVE NEGA TIVE Urine propoxyphene detection NEGATIVE N EGATIVE Complete blood count (CBC) with automate d white blood cell (WBC) differential - 10/12/18 15:55 Blood leukocytes automated count (number/volume) 8.5 10*3/uL 4.3-11.0 Blood erythrocytes automated count (number/volume) 5.33 10*6/uL 4.35-5.85 Venous blood hemoglobin measurement (mass/volume) 16.4 g/dL 13.3-17.7 Blood hematocrit (volume fraction) 44 % 40-54 Automated erythrocyte mean corpuscular volume 83 [ foz_us] 80-99 Automated erythrocyte mean corpuscular h emoglobin (mass per erythrocyte) 31 pg 25-34 Automated erythrocyte mean corpuscular h emoglobin concentration measurement (mass/volume) 37 g/dL 32-36 Automated erythrocyte distribution width ratio 13. 2 % 10.0- 14.5 Automated blood platelet count (count/volume) 302 10*3/uL 130-400 Automated blood platelet mean volume measurement 10.1 [foz_us] 7.4-10.4 Automated blood neutrophils/100 leukocytes 55 % 42-75 Automated blood lymphocytes/100 leukocytes 37 % 12-44 Blood monocytes/100 leukocytes 5 % 0-12 Automated blood eosinophils/100 leukocytes 2 % 0-10 Automated blood basophils/100 leukocytes 0 % 0-10 Blood neutrophils automated count (number/volume) 4.7 10*3 1.8-7.8 Blood lymphocytes automated count (number/volume) 3.2 10*3 1.0-4.0 Blood monocytes automated count (number/volume) 0. 5 10*3 0.0-1.0 Automated eosinophil count 0.2 10*3/uL 0 .0-0.3 Automated blood basophil count (count/volume) 0.0 10*3/uL 0.0-0.1 Comprehensive metabolic panel - 10/12/18 15:55 Serum or plasma sodium measurement (moles/volume) 140 mmol/L 135-145 Serum or plasma potassium measurement (moles/volume) 3.5 mmol/L 3.6-5.0 Serum or plasma chloride measurement (moles/volume) 104 mmol/L 98-107 Carbon dioxide 26 mmol/L 21-32 Serum or plasma anion gap determination (moles/volume) 10 mmol/L 5-14 Serum or plasma urea nitrogen measurement (mass/volume ) 9 mg/dL 7-18 Serum or plasma creatinine measurement (mass/volume) 0.99 mg/dL 0.60-1.30 Serum or plasma urea nitrogen/creatinine mass ratio 9 NRG Serum or plasma creatinine measurement w ith calculation of estimated glomerular filtration rate > NRG Serum or plasma glucose measurement (mass/volume) 117 mg/dL 70-105 Serum or plasma calcium measurement (mass/volume) 9.6 mg/dL 8.5-10.1 Serum or plasma total bilirubin measurement (mass/volu me) 0.4 mg/dL 0.1-1.0 Serum or plasma alkaline phosphatase farheen surement (enzymatic activity/volume) 98 U/L 40-136 Serum or plasma aspartate aminotransfera se measurement (enzymatic activity/volume) 22 U/L 5-34 Serum or plasma alanine aminotransferase measurement (enzymatic activity/volume) 27 U/L 0-55 Serum or plasma protein measurement (mass/volume) 7.2 g/dL 6.4-8.2 Serum or plasma albumin measurement (mass/volume) 4.7 g/dL 3.2-4.5 Magnesium - 10/12/18 15:55 Magnesium 2.3 mg/dL 1.8-2.4 PT panel in platelet poor plasma by coag ulation assay - 10/12/18 15:55 Prothrombin time (PT) in platelet poor plasma by coagu lation assay 12.7 s 12.2-14.7 INR in platelet poor plasma or blood by coagulation as say 1.0 0.8-1.4 Activated partial thromboplastin time (a PTT) in platelet poor plasma bycoagulation assay - 10/12/18 15:55 Activated partial thromboplastin time (a PTT) in platelet poor plasma bycoagulation assay 31 s 24-35 Fibrin D-dimer FEU measurement in platel et poor plasma (mass/volume) - 10/12/18 15:55 Fibrin D-dimer FEU measurement in platelet poor plasma (mass/volume) 0.17 ug/mL 0.00-0.49 Serum or plasma troponin i.cardiac measu rement (mass/volume) - 10/12/18 15:55 Serum or plasma troponin i.cardiac measurement (mass/v olume) < ng/mL <0.028 Myoglobin, serum - 10/12/18 15:55 Myoglobin, serum 37.6 ng/mL 10.0-92.0 Complete blood count (CBC) with automate d white blood cell (WBC) differential - 03/03/20 13:38 Blood leukocytes automated count (number/volume) 9.3 10*3/uL 4.3-11.0 Blood erythrocytes automated count (number/volume) 5.39 10*6/uL 4.35-5.85 Venous blood hemoglobin measurement (mass/volume) 16.3 g/dL 13.3-17.7 Blood hematocrit (volume fraction) 44 % 40-54 Automated erythrocyte mean corpuscular volume 82 [ foz_us] 80-99 Automated erythrocyte mean corpuscular h emoglobin (mass per erythrocyte) 30 pg 25-34 Automated erythrocyte mean corpuscular h emoglobin concentration measurement (mass/volume) 37 g/dL 32-36 Automated erythrocyte distribution width ratio 12. 7 % 10.0- 14.5 Automated blood platelet count (count/volume) 269 10*3/uL 130-400 Automated blood platelet mean volume measurement 10.3 [foz_us] 7.4-10.4 Automated blood neutrophils/100 leukocytes 71 % 42-75 Automated blood lymphocytes/100 leukocytes 23 % 12-44 Blood monocytes/100 leukocytes 5 % 0-12 Automated blood eosinophils/100 leukocytes 1 % 0-10 Automated blood basophils/100 leukocytes 0 % 0-10 Blood neutrophils automated count (number/volume) 6.6 10*3 1.8-7.8 Blood lymphocytes automated count (number/volume) 2.1 10*3 1.0-4.0 Blood monocytes automated count (number/volume) 0. 4 10*3 0.0-1.0 Automated eosinophil count 0.1 10*3/uL 0 .0-0.3 Automated blood basophil count (count/volume) 0.0 10*3/uL 0.0-0.1 Comprehensive metabolic panel - 03/03/20 13:38 Serum or plasma sodium measurement (moles/volume) 141 mmol/L 135-145 Serum or plasma potassium measurement (moles/volume) 3.9 mmol/L 3.6-5.0 Serum or plasma chloride measurement (moles/volume) 104 mmol/L 98-107 Carbon dioxide 27 mmol/L 21-32 Serum or plasma anion gap determination (moles/volume) 10 mmol/L 5-14 Serum or plasma urea nitrogen measurement (mass/volume ) 6 mg/dL 7-18 Serum or plasma creatinine measurement (mass/volume) 0.95 mg/dL 0.60-1.30 Serum or plasma urea nitrogen/creatinine mass ratio 6 NRG Serum or plasma creatinine measurement w ith calculation of estimated glomerular filtration rate > NRG Serum or plasma glucose measurement (mass/volume) 124 mg/dL 70-105 Serum or plasma calcium measurement (mass/volume) 9.7 mg/dL 8.5-10.1 Serum or plasma total bilirubin measurement (mass/volu me) 0.8 mg/dL 0.1-1.0 Serum or plasma alkaline phosphatase farheen surement (enzymatic activity/volume) 92 U/L 40-136 Serum or plasma aspartate aminotransfera se measurement (enzymatic activity/volume) 21 U/L 5-34 Serum or plasma alanine aminotransferase measurement (enzymatic activity/volume) 38 U/L 0-55 Serum or plasma protein measurement (mass/volume) 7.2 g/dL 6.4-8.2 Serum or plasma albumin measurement (mass/volume) 4.7 g/dL 3.2-4.5 Serum or plasma amylase measurement (enz ymatic activity/volume) - 03/03/20 13:38 Serum or plasma amylase measurement (enzymatic activit y/volume) 154 U/L 25-125 Lipase - 03/03/20 13:38 Lipase 641 U/L 8-78 Serum or plasma ethanol measurement (mas s/volume) - 03/03/20 13:38 Serum or plasma ethanol measurement (mass/volume) < mg/dL <10 Complete urinalysis with reflex to cultu re - 03/03/20 18:20 Urine color determination YELLOW NRG Urine clarity determination CLEAR NR G Urine pH measurement by test strip 7.0 5-9 Specific gravity of urine by test strip <= 1.016-1.022 Urine protein assay by test strip, semi-quantitative NEGATIVE NEGATIVE Urine glucose detection by automated test strip NE GATIVE NEGATIVE Erythrocytes detection in urine sediment by light micr oscopy NEGATIVE NEGATIVE Urine ketones detection by automated test strip NE GATIVE NEGATIVE Urine nitrite detection by test strip NEGATIVE NEGATIVE Urine total bilirubin detection by test strip NEGA TIVE NEGATIVE Urine urobilinogen measurement by automated test strip (mass/volume) 0.2 mg/dL < = 1.0 Urine leukocyte esterase detection by dipstick NEG ATIVE NEGATIVE Automated urine sediment erythrocyte cou nt by microscopy (number/high power field) NONE NRG Automated urine sediment leukocyte count by microscopy (number/high power field) NONE NRG Bacteria detection in urine sediment by light microsco py NEGATIVE NRG Squamous epithelial cells detection in u rine sediment by light microscopy RARE NRG Crystals detection in urine sediment by light microsco py NONE NRG Casts detection in urine sediment by light microscopy NONE NRG Mucus detection in urine sediment by light microscopy NEGATIVE NRG Complete urinalysis with reflex to culture NO NRG Urine drug screening test - 03/03/20 18: 20 Urine phencyclidine detection by screening method NEGATIVE NEGATIVE Urine benzodiazepines detection by screening method NEGATIVE NEGATIVE Urine cocaine detection NEGATIVE NEGATI VE Urine amphetamines detection by screening method N EGATIVE NEGATIVE Urine methamphetamine detection by screening method NEGATIVE NEGATIVE Urine cannabinoids detection by screening method N EGATIVE NEGATIVE Urine opiates detection by screening method POSITI VE NEGATIVE Urine barbiturates detection NEGATIVE N EGATIVE Screening urine tricyclic antidepressants detection NEGATIVE NEGATIVE Urine methadone detection by screening method NEGA TIVE NEGATIVE Urine oxycodone detection NEGATIVE NEGA TIVE Urine propoxyphene detection NEGATIVE N EGATIVE Complete blood count (CBC) with automate d white blood cell (WBC) differential - 03/04/20 05:15 Blood leukocytes automated count (number/volume) 11.5 10*3/uL 4.3-11.0 Blood erythrocytes automated count (number/volume) 5.03 10*6/uL 4.35-5.85 Venous blood hemoglobin measurement (mass/volume) 15.0 g/dL 13.3-17.7 Blood hematocrit (volume fraction) 42 % 40-54 Automated erythrocyte mean corpuscular volume 84 [ foz_us] 80-99 Automated erythrocyte mean corpuscular h emoglobin (mass per erythrocyte) 30 pg 25-34 Automated erythrocyte mean corpuscular h emoglobin concentration measurement (mass/volume) 36 g/dL 32-36 Automated erythrocyte distribution width ratio 13. 1 % 10.0- 14.5 Automated blood platelet count (count/volume) 223 10*3/uL 130-400 Automated blood platelet mean volume measurement 10.8 [foz_us] 7.4-10.4 Automated blood neutrophils/100 leukocytes 74 % 42-75 Automated blood lymphocytes/100 leukocytes 17 % 12-44 Blood monocytes/100 leukocytes 8 % 0-12 Automated blood eosinophils/100 leukocytes 1 % 0-10 Automated blood basophils/100 leukocytes 0 % 0-10 Blood neutrophils automated count (number/volume) 8.5 10*3 1.8-7.8 Blood lymphocytes automated count (number/volume) 1.9 10*3 1.0-4.0 Blood monocytes automated count (number/volume) 0. 9 10*3 0.0-1.0 Automated eosinophil count 0.1 10*3/uL 0 .0-0.3 Automated blood basophil count (count/volume) 0.0 10*3/uL 0.0-0.1 Comprehensive metabolic panel - 03/04/20 05:15 Serum or plasma sodium measurement (moles/volume) 142 mmol/L 135-145 Serum or plasma potassium measurement (moles/volume) 3.8 mmol/L 3.6-5.0 Serum or plasma chloride measurement (moles/volume) 105 mmol/L 98-107 Carbon dioxide 22 mmol/L 21-32 Serum or plasma anion gap determination (moles/volume) 15 mmol/L 5-14 Serum or plasma urea nitrogen measurement (mass/volume ) 6 mg/dL 7-18 Serum or plasma creatinine measurement (mass/volume) 0.79 mg/dL 0.60-1.30 Serum or plasma urea nitrogen/creatinine mass ratio 8 NRG Serum or plasma creatinine measurement w ith calculation of estimated glomerular filtration rate > NRG Serum or plasma glucose measurement (mass/volume) 109 mg/dL 70-105 Serum or plasma calcium measurement (mass/volume) 8.9 mg/dL 8.5-10.1 Serum or plasma total bilirubin measurement (mass/volu me) 0.7 mg/dL 0.1-1.0 Serum or plasma alkaline phosphatase farheen surement (enzymatic activity/volume) 75 U/L 40-136 Serum or plasma aspartate aminotransfera se measurement (enzymatic activity/volume) 15 U/L 5-34 Serum or plasma alanine aminotransferase measurement (enzymatic activity/volume) 26 U/L 0-55 Serum or plasma protein measurement (mass/volume) 6.1 g/dL 6.4-8.2 Serum or plasma albumin measurement (mass/volume) 4.0 g/dL 3.2-4.5 CALCIUM CORRECTED 8.9 mg/dL 8.5-10.1 Serum or plasma triglyceride measurement (mass/volume) - 03/04/20 05:15 Serum or plasma triglyceride measurement (mass/volume) 181 mg/dL <150 Encounters ACCT No. Visit Date/Time Discharge Status Pt. Type Provider Facility Loc./Unit Complaint [id number] 09/12/2017 16:00:00 09/12/2017 23:59: 59 [facility] Outpatient DARRENQuintonEVERARDO [facility]EL[facility] [id number] 07/03/2017 16:00:00 Document Registration [id number] 06/14/2017 15:40:00 Document Registration [id number] 12/24/2016 10:10:00 12/28/2016 10:07: 00 [id number]/2016 08:51:00 10/29/2016 11:05: 00 DIS Outpatient Audrey Potter [id number] 09/05/2016 15:00:00 09/05/2016 18:24: 00 [id number] 05/08/2017 11:00:00 Document Registration [id number] 09/05/2016 15:54:50 Document Registration [id number] 03/03/2020 15:51:00 020 13:25:00 DIS Inpatient SEYMOUR JOHNSON, TONIA Anand [facility] 4TH ACUTE PANCREATITIS [id number] 10/12/2018 15:33:00 019 17:30:00 DIS Emergency MARÍA JOHNSON, ATILIO Garcia [facility] ER SOB CHEST PAIN [id number] 08/21/2018 11:22:00 019 13:55:00 DIS Emergency YAO BOWSER [facility] ER UPPER ABD PAIN;NAUSEA [id number] 06/24/2018 18:17:00 018 20:17:00 DIS Emergency AUDREY POTTER APRN [facility] ER PAIN IN LOWER BACK [id number] 08/10/2017 09:13:00 018 12:56:00 DIS Emergency YAO BOWSER [facility] ER SOA, N/V/D [id number] 07/09/2017 20:56:00 017 13:17:00 DIS Inpatient GRETTA JOHNSON, HANNAH Ricketts [facility] 4TH FALL [id number] 06/20/2017 10:26:00 017 16:20:00 DIS Inpatient EULALIA JOHNSON, FABRICIO Bernard [facility] 4TH ACUTE ON CHRONIC PANCRE ATITIS [id number] 06/19/2017 17:49:00 017 21:35:00 DIS Emergency SANTIAGO CHARLES MD [facility] ER ABD PAIN [id number] 12/01/2016 17:21:00 017 19:02:00 DIS Emergency AUDREY POTTER APRN [facility] ER CHEST PAIN,SOA [id number] 06/01/2016 08:27:00 016 12:12:00 DIS Inpatient OSWALDO SANTILLAN DO, V [facility] 4TH PANCREATITIS [id number] 05/31/2016 16:26:00 016 23:59:59 CLS Emergency MARÍA JOHNSON, ATILIO Garcia [facility] ER ABD PAIN [id number] 09/28/2015 16:15:00 016 11:35:00 DIS Inpatient VANDANA JOHNSON, FRANK Wheeler [facility] 4TH PANCREATITIS, ABD PAIN, N/V, ALCOHOLISM [id number] 10/11/2014 21:23:00 Document Registration
== END 2020-03-05 13:25 | disposition home or self-care (01) | DRG 440 ==
LOC: EDUNIT# 12:52 → ER 12:54 → UNDOADMOB 15:51 → 4TH 15:51 → OBSVTOIN 15:51 → INTOOBSV 15:51 → 4TH 16:30 → UNDODISIN 03-05 13:25
PROVIDERS: ADMIT Internal Medicine; ATTEND Internal Medicine
DX: K85.90 Acute pancreatitis without necrosis or infection, unspecified (principal); F10.21 Alcohol dependence, in remission; K21.9 Gastro-esophageal reflux disease without esophagitis; F90.9 Attention-deficit hyperactivity disorder, unspecified type; F41.9 Anxiety disorder, unspecified; Z87.442 Personal history of urinary calculi
CPT/HCPCS: 36415; 74177; 76705; 80053; 80306; 80320; 81000; 82150; 83690; 84478; 85025; 94760; 96374; 96375

== ENCOUNTER 2021-10-05 12:29 | Emergency (ER) | payer SELFPAY ==
[~2021-10-05] VITALS: Ht 165 cm; Wt 75.0 kg
[~2021-10-05 12:29] MED LIST changes: +MULT-1030 PO; +OMEP-254 PO; -OMEP40CA27 PO; +OMEP40CA6 PO; +OXYC1TAB87 PO
[2021-10-05] MEDS ORDERED: KETOROLAC 30 MG/ML VIAL IVP ONE (12:45)
--- NOTE | 2021-10-05 12:48 | ED General ---
General Chief Complaint: General Problems/Pain Stated Complaint: BACK PAIN Nursing Triage Note: AMB TO ED WITH C/O R FLANK PAIN INTERMITTEN FOR 6 MONTHS SAW [facility] 2 WEEK'S AGO STARTED ON BACTRIM BECAUSE HAD BLOOD IN URINE . WAS BETTER PAIN STARTED LAST NIGHT HAS NOT TAKEN ANY OTC PAIN MEDS. FOR. IS TO SEE A DR IN [place] FOR FOLLOW UP UNSURE OF NAME Source of Information: Patient Exam Limitations: No Limitations History of Present Illness Date Seen by Provider: Oct 05, 2021 Time Seen by Provider: 12:44 Initial Comments To ER with right flank pain for couple of months. Is been getting more unpleasant over the course of the past few weeks. He saw primary care and was given a prescription for nabumetone and Bactrim. He finished those and they did seem to help with the pain but it has subsequently recurred. It is in the right flank radiating to the right abdomen and the right testicle. History of kidney stones. He is set up to see a urologist out of [place] on October 29 at 9:30 in the morning. Timing/Duration: Getting Worse Severity: Moderate Associated Systoms: Denies Symptoms Allergies and Home Medications Allergies Coded Allergies: cefpodoxime (Verified Allergy, Unknown, 10/11/14) Told allergic when he was a child. Reaction unknown. codeine (Verified Adverse Reaction, Mild, NAUSEA/VOMITING, 06/21/17) Patient Home Medication List Home Medication List Reviewed: Yes Hydrocodone/Acetaminophen (Hydrocodone-Acetamin 5-325 mg) 1 Each Tablet, 1 TAB PO Q4H PRN for PAIN-MODERATE (5-7) Prescribed by: AUDREY POTTER on 10/05/21 1350 Ibuprofen (Ibuprofen) 800 Mg Tablet, 800 MG PO Q8H PRN for PAIN Prescribed by: AUDREY POTTER on 10/05/21 1349 Multivits,Ca,Min/Iron/FA/Lycop (Centrum Men's Tablet) 1 Each Tablet, 1 EACH PO DAILY, (Reported) Entered as Reported by: BERNIE CHUN on 03/04/20 1118 Omeprazole Magnesium (Omeprazole Magnesium) 20 Mg Capsule.dr, 20 MG PO DAILY, (Reported) Entered as Reported by: BERNIE CHUN on 03/04/20 1118 Oxycodone HCl/Acetaminophen (Percocet 5-325 mg Tablet) 1 Each Tablet, 1 TAB PO Q4H Prescribed by: TONIA AHUJA on 03/05/20 1154 Sulfamethoxazole/Trimethoprim (Bactrim Ds Tablet) 1 Each Tablet, 1 EACH PO DAILY Prescribed by: AUDREY POTTER on 10/05/21 1349 Tamsulosin HCl (Flomax) 0.4 Mg Cap, 0.4 MG PO DAILY Prescribed by: AUDREY POTTER on 10/05/21 1349 Review of Systems Review of Systems Constitutional: see HPI EENTM: see HPI Respiratory: no symptoms reported Cardiovascular: no symptoms reported Gastrointestinal: abdominal pain Genitourinary: see HPI; No dysuria; pain Musculoskeletal: no symptoms reported Skin: no symptoms reported Psychiatric/Neurological: No Symptoms Reported Hematologic/Lymphatic: No Symptoms Reported Immunological/Allergic: no symptoms reported Past Iebhyhh-Lyedpq-Dlfnyi Hx Immunizations Up To Date Tetanus Booster (TDap): Unknown PED Vaccines UTD: No Seasonal Allergies Seasonal Allergies: No Past Medical History Surgeries: Yes (L-BROKEN LEG URBANO PLACED) Orthopedic Respiratory: No Cardiac: No Neurological: No Reproductive Disorders: No Sexually Transmitted Disease: No HIV/AIDS: No Genitourinary: Yes Kidney Stones Gastrointestinal: Yes Gastroesophageal Reflux, Pancreatitis Musculoskeletal: Yes (RT CLUB FOOT WHEN YOUNGER) Fractures Endocrine: No HEENT: No Cancer: No Did You Recieve Any Treatments: No Psychosocial: Yes ADD/ADHD, Anxiety Integumentary: No Blood Disorders: No Adverse Reaction/Blood Tranf: No Family Medical History Completed stroke Grandmother Coronary thrombosis Grandmother Pancreatitis No Pertinent Family Hx Physical Exam Vital Signs Vital Signs - First Documented 10/05/21 12:39 Pulse 87 Resp 18 B/P (MAP) 148/92 (110) Pulse Ox 99 O2 Delivery Room Air Capillary Refill : Less Than 3 Seconds Height, Weight, BMI Height: 5'5.00" Weight: 180lbs. 0.0oz. 81.961526er; 27.00 BMI Method:Stated General Appearance: No Apparent Distress, WD/WN Eyes: Bilateral Eye Normal Inspection, Bilateral Eye PERRL, Bilateral Eye EOMI Neck: Full Range of Motion, Normal Inspection Respiratory: No Accessory Muscle Use, No Respiratory Distress Cardiovascular: Regular Rate, Rhythm, Normal Peripheral Pulses Gastrointestinal: Normal Bowel Sounds, Non Tender, Soft Back: CVA Tenderness (R) Extremity: Normal Capillary Refill, Normal Inspection Neurologic/Psychiatric: Alert, Oriented x3 Skin: Normal Color, Warm/Dry Progress/Results/Core Measures Suspected Sepsis SIRS Temperature: Pulse: 87 Respiratory Rate: 18 Laboratory Tests 10/05/21 12:55: White Blood Count 9.6 Blood Pressure 148 /92 Mean: 110 Laboratory Tests 10/05/21 12:55: Creatinine 0.94, Platelet Count 247, Total Bilirubin 0.5 Results/Orders Lab Results Laboratory Tests Test 10/05/21 12:50 10/05/21 12:55 Range/Units Urine Color YELLOW Urine Clarity CLEAR Urine pH 6.0 5-9 Urine Specific [place] <=1.005 1.016-1.022 Urine Protein NEGATIVE NEGATIVE Urine Glucose (UA) NEGATIVE NEGATIVE Urine Ketones NEGATIVE NEGATIVE Urine Nitrite NEGATIVE NEGATIVE Urine Bilirubin NEGATIVE NEGATIVE Urine Urobilinogen 0.2 < = 1.0 MG/DL Urine Leukocyte Esterase NEGATIVE NEGATIVE Urine RBC (Auto) NEGATIVE NEGATIVE Urine RBC RARE /HPF Urine WBC NONE /HPF Urine Squamous Epithelial Cells RARE /HPF Urine Crystals NONE /LPF Urine Bacteria NEGATIVE /HPF Urine Casts NONE /LPF Urine Mucus NEGATIVE /LPF Urine Culture Indicated NO White Blood Count 9.6 4.3-11.0 10^3/uL Red Blood Count 5.09 4.30-5.52 10^6/uL Hemoglobin 15.3 13.3-17.7 g/dL Hematocrit 43 40-54 % Mean Corpuscular Volume 85 80-99 fL Mean Corpuscular Hemoglobin 30 25-34 pg Mean Corpuscular Hemoglobin Concent 35 32-36 g/dL Red Cell Distribution Width 12.0 10.0-14.5 % Platelet Count 247 130-400 10^3/uL Mean Platelet Volume 10.2 9.0-12.2 fL Immature Granulocyte % (Auto) 1 % Neutrophils (%) (Auto) 67 42-75 % Lymphocytes (%) (Auto) 25 12-44 % Monocytes (%) (Auto) 5 0-12 % Eosinophils (%) (Auto) 1 0-10 % Basophils (%) (Auto) 0 0-10 % Neutrophils # (Auto) 6.5 1.8-7.8 10^3/uL Lymphocytes # (Auto) 2.4 1.0-4.0 10^3/uL Monocytes # (Auto) 0.5 0.0-1.0 10^3/uL Eosinophils # (Auto) 0.1 0.0-0.3 10^3/uL Basophils # (Auto) 0.0 0.0-0.1 10^3/uL Immature Granulocyte # (Auto) 0.1 0.0-0.1 10^3/uL Sodium Level 138 135-145 MMOL/L Potassium Level 3.4 L 3.6-5.0 MMOL/L Chloride Level 102 98-107 MMOL/L Carbon Dioxide Level 24 21-32 MMOL/L Anion Gap 12 5-14 MMOL/L Blood Urea Nitrogen 9 7-18 MG/DL Creatinine 0.94 0.60-1.30 MG/DL Estimat Glomerular Filtration Rate 113 BUN/Creatinine Ratio 10 Glucose Level 134 H 70-105 MG/DL Calcium Level 9.8 8.5-10.1 MG/DL Corrected Calcium 9.6 8.5-10.1 MG/DL Total Bilirubin 0.5 0.1-1.0 MG/DL Aspartate Amino Transf (AST/SGOT) 20 5-34 U/L Alanine Aminotransferase (ALT/SGPT) 30 0-55 U/L Alkaline Phosphatase 75 40-136 U/L Total Protein 6.7 6.4-8.2 GM/DL Albumin 4.3 3.2-4.5 GM/DL My Orders Orders - AUDREY POTTER APRN Cbc With Automated Diff (10/05/21 12:43) Comprehensive Metabolic Panel (10/05/21 12:43) Ua Culture If Indicated (10/05/21 12:43) Ed Iv/Invasive Line Start (10/05/21 12:43) Abdomen/Kub 1view (10/05/21 12:43) Ct Abd/Pelvis Wo(Kidney Stone) (10/05/21 12:43) Ketorolac Injection (Toradol Injection) (10/05/21 12:45) Medications Given in ED Current Medications Medications Dose Ordered Sig/Imer Route Start Time Stop Time Status Last Admin Dose Admin Ketorolac Tromethamine 15 mg ONCE ONCE IVP 10/05/21 12:45 10/05/21 12:46 DC 10/05/21 12:56 15 MG Vital Signs/I&O 10/05/21 10/05/21 12:39 13:58 Pulse 87 81 Resp 18 18 B/P (MAP) 148/92 (110) 131/99 Pulse Ox 99 98 O2 Delivery Room Air Room Air Capillary Refill : Less Than 3 Seconds Blood Pressure Mean: 110 Departure Communication (Admissions) NAME: CHANDNI BAGLEY [facility] REC#: [id number] PT STATUS: REG ER : 1990 PHYSICIAN: AUDREY POTTER APRN ADMIT DATE: 10/05/21/ER Draft Date of Exam:10/05/21 CT ABD/PELVIS WO(KIDNEY STONE) PROCEDURE: CT urinary tract, rule out kidney stone. TECHNIQUE: Multiple contiguous axial images were obtained through the abdomen and pelvis without the use of intravenous contrast. Auto Exposure Controls were utilized during the CT exam to meet ALARA standards for radiation dose reduction. INDICATION: Right flank pain and hematuria. COMPARED: 03/03/2020. FINDINGS: Patient has a mild degree of right-sided hydronephrosis. There is borderline ectasia of the proximal 3rd of the right ureter. Right ureter is slightly thickened. No urinoma or fluid collection. No radiopaque ureteral stone. There is a stone layering dependently, nonobstructing, within the extrarenal right pelvis, that calculus measures 5.4 mm. Findings today could reflect recently passed ureteral stone or the calculus in the right renal pelvis intermittently shifting positions and periodically obstructing, correlate with a transient character to the pain or its resolution. The unobstructed left kidney contains a punctate nonobstructing 1 mm stone in the lower pole calyx, its otherwise normal. There is no bowel obstruction. There is a normal appendix. There is no diverticulitis. Prostate, seminal vesicles and urinary bladder normal. No pneumatosis. No free gas. The liver, gallbladder, bile ducts, spleen, adrenals and pancreas all nonacute. The aorta is nonaneurysmal. IMPRESSION: 1. Very slight dilatation of the right renal collecting system. There is a stone nonobstructing line dependently within the right extrarenal pelvis measuring 5.4 mm. There is a very slight perinephric and periureteric stranding, findings again could reflect recently passed stone or the pelvic calcification intermittently obstructing with differing positions. 2. Tiny nonobstructing 1 mm left kidney stone. 3. Remaining solid and hollow viscera unremarkable at this uninfused study. Dictated on workstation # [id number] Dict: 10/05/21 1328 Trans: 10/05/21 1335 CVB [id number] Interpreted by: LANRE TALBOT Electronically signed by: Impression Primary Impression: Right ureteral calculus Disposition: HOME, SELF-CARE Condition: Stable Departure-Patient Inst. Decision time for Depature: 13:46 Referrals: NO,LOCAL PHYSICIAN (PCP/Family) Primary Care Physician Patient Instructions: Kidney Stones (DC), How to Strain Your Urine Add. Discharge Instructions: 1. Keep your appointment with the urologist as scheduled. This may require lithotripsy to break up the stone into a small enough size that can pass. Take medication as directed and return to ER for any intolerable pain or fevers in the meantime. All discharge instructions reviewed with patient and/or family. Voiced understanding. Scripts Sulfamethoxazole/Trimethoprim (Bactrim Ds Tablet) 1 Each Tablet 1 EACH PO DAILY, #5 TAB Prov: AUDREY POTTER APRN 10/05/21 Hydrocodone/Acetaminophen (Hydrocodone-Acetamin 5-325 mg) 1 Each Tablet 1 TAB PO Q4H PRN for PAIN-MODERATE (5-7), #14 TAB Prov: AUDREY POTTER APRN 10/05/21 Ibuprofen (Ibuprofen) 800 Mg Tablet 800 MG PO Q8H PRN for PAIN, #30 TAB 0 Refills Prov: AUDREY POTTER APRN 10/05/21 Tamsulosin HCl (Flomax) 0.4 Mg Cap 0.4 MG PO DAILY, #10 CAP Prov: AUDREY POTTER APRN 10/05/21 Work/School Note: Work Release Form Date Seen in the Emergency Department: Oct 06, 2021 Return to Work: Oct 05, 2021 AUDREY POTTER APRN Oct 05, 2021 12:48
[2021-10-05 12:57] LABS: BILIRUBIN,URINE NEGATIVE (NEGATIVE); CLARITY,URINE CLEAR; COLOR,URINE YELLOW; GLUCOSE, URINE (UA) NEGATIVE (NEGATIVE); KETONES,URINE NEGATIVE (NEGATIVE); LEUKOCYTE ESTERASE ,URINE NEGATIVE (NEGATIVE); NITRITE,URINE NEGATIVE (NEGATIVE); PROTEIN,URINE NEGATIVE (NEGATIVE)
[2021-10-05 13:06] LABS: BASOPHILS % (AUTO) 0 % (0-10); EOSINOPHILS # (AUTO) 0.1 10^3/uL (0.0-0.3); EOSINOPHILS % (AUTO) 1 % (0-10); HEMATOCRIT 43 % (40-54); HEMOGLOBIN 15.3 g/dL (13.3-17.7); LYMPHOCYTES # (AUTO) 2.4 10^3/uL (1.0-4.0); LYMPHOCYTES % (AUTO) 25 % (12-44); MEAN CORPUSCULAR HEMOGLOBIN 30 pg (25-34); MEAN CORPUSCULAR HGB CONC 35 g/dL (32-36); MEAN CORPUSCULAR VOLUME 85 fL (80-99); MEAN PLATELET VOLUME 10.2 fL (9.0-12.2); MONOCYTES # (AUTO) 0.5 10^3/uL (0.0-1.0); MONOCYTES % (AUTO) 5 % (0-12); NEUTROPHILS # (AUTO) 6.5 10^3/uL (1.8-7.8); NEUTROPHILS % (AUTO) 67 % (42-75); PLATELET COUNT 247 10^3/uL (130-400); WHITE BLOOD COUNT 9.6 10^3/uL (4.3-11.0)
[2021-10-05 13:10] LABS: BACTERIA,URINE NEGATIVE /HPF; RBC,URINE RARE /HPF; SQUAMOUS EPITHELIAL CELL,UR RARE /HPF
[2021-10-05 13:21] LABS: ALBUMIN 4.3 GM/DL (3.2-4.5); POTASSIUM 3.4 MMOL/L (3.6-5.0)
[2021-10-05 13:22] LABS: CALCIUM 9.8 MG/DL (8.5-10.1)
[2021-10-05 13:23] LABS: TOTAL PROTEIN 6.7 GM/DL (6.4-8.2)
[2021-10-05 13:25] LABS: BILIRUBIN,TOTAL 0.5 MG/DL (0.1-1.0)
[2021-10-05 13:27] LABS: CREATININE SERUM 0.94 MG/DL (0.60-1.30)
--- NOTE | 2021-10-05 13:36 | Diagnostic Imaging Report ---
Indication: Right flank pain. Comparison: None Findings: 2 views of the abdomen demonstrate questionable tiny calcification in the region of the renal pelvis on the right. No calcifications seen within the left kidney, ureters or bladder. Bowel gas pattern is normal. Impression: Questionable right renal calculus. Dictated by: Dictated on workstation # [id number]
--- NOTE | 2021-10-05 13:36 | Diagnostic Imaging Report ---
PROCEDURE: CT urinary tract, rule out kidney stone. TECHNIQUE: Multiple contiguous axial images were obtained through the abdomen and pelvis without the use of intravenous contrast. Auto Exposure Controls were utilized during the CT exam to meet ALARA standards for radiation dose reduction. INDICATION: Right flank pain and hematuria. COMPARED: 03/03/2020. FINDINGS: Patient has a mild degree of right-sided hydronephrosis. There is borderline ectasia of the proximal 3rd of the right ureter. Right ureter is slightly thickened. No urinoma or fluid collection. No radiopaque ureteral stone. There is a stone layering dependently, nonobstructing, within the extrarenal right pelvis, that calculus measures 5.4 mm. Findings today could reflect recently passed ureteral stone or the calculus in the right renal pelvis intermittently shifting positions and periodically obstructing, correlate with a transient character to the pain or its resolution. The unobstructed left kidney contains a punctate nonobstructing 1 mm stone in the lower pole calyx, its otherwise normal. There is no bowel obstruction. There is a normal appendix. There is no diverticulitis. Prostate, seminal vesicles and urinary bladder normal. No pneumatosis. No free gas. The liver, gallbladder, bile ducts, spleen, adrenals and pancreas all nonacute. The aorta is nonaneurysmal. IMPRESSION: 1. Very slight dilatation of the right renal collecting system. There is a stone nonobstructing line dependently within the right extrarenal pelvis measuring 5.4 mm. There is a very slight perinephric and periureteric stranding, findings again could reflect recently passed stone or the pelvic calcification intermittently obstructing with differing positions. 2. Tiny nonobstructing 1 mm left kidney stone. 3. Remaining solid and hollow viscera unremarkable at this uninfused study. Dictated by: Dictated on workstation # [id number]
[2021-10-05] MEDS ORDERED: TMSL.4C PO (13:49)
[2021-10-05] MEDS ORDERED: SULF1TAB38 PO (13:49)
[2021-10-05] MEDS ORDERED: IBUP-1780 PO (13:49)
[2021-10-05] MEDS ORDERED: ACHD5005 PO (13:49)
[2021-10-05 13:58] VITALS: BP 131/99
== END 2021-10-05 14:15 | disposition home or self-care (01) ==
LOC: EDUNIT# 12:29 → ER 12:30
DX: N20.1 Calculus of ureter (principal)
CPT/HCPCS: 36415; 74018; 74176; 80053; 81000; 85025

== ENCOUNTER 2022-02-14 06:49 | Emergency (ER) | payer SELFPAY ==
[~2022-02-14] VITALS: Ht 165 cm; Wt 74.0 kg
[~2022-02-14 06:49] MED LIST changes: +SULF1TAB38 PO
[2022-02-14 07:00] VITALS: BP 141/75
[2022-02-14 07:30] LABS: BASOPHILS # (AUTO) 0.1 10^3/uL (0.0-0.1); BASOPHILS % (AUTO) 1 % (0-10); EOSINOPHILS # (AUTO) 0.2 10^3/uL (0.0-0.3); EOSINOPHILS % (AUTO) 3 % (0-10); HEMATOCRIT 46 % (40-54); HEMOGLOBIN 16.2 g/dL (13.3-17.7); LYMPHOCYTES # (AUTO) 2.5 10^3/uL (1.0-4.0); LYMPHOCYTES % (AUTO) 31 % (12-44); MEAN CORPUSCULAR HEMOGLOBIN 30 pg (25-34); MEAN CORPUSCULAR HGB CONC 35 g/dL (32-36); MEAN CORPUSCULAR VOLUME 85 fL (80-99); MEAN PLATELET VOLUME 10.5 fL (9.0-12.2); MONOCYTES # (AUTO) 0.4 10^3/uL (0.0-1.0); MONOCYTES % (AUTO) 5 % (0-12); NEUTROPHILS # (AUTO) 4.6 10^3/uL (1.8-7.8); NEUTROPHILS % (AUTO) 59 % (42-75); PLATELET COUNT 233 10^3/uL (130-400); POTASSIUM 3.6 MMOL/L (3.6-5.0); WHITE BLOOD COUNT 7.8 10^3/uL (4.3-11.0)
[2022-02-14] MEDS ORDERED: GLYCOPYRROLATE 0.2 MG/ML (ROBINUL) 2 ML VIAL IV ONE (07:30)
[2022-02-14] MEDS ORDERED: NS IV 1000 ML 1,000 ML IV SCH (07:30)
[2022-02-14] MEDS ORDERED: morphine INJ 10 MG/ML 1ML (SYR OR VIAL) IVP STA (07:30)
[2022-02-14] MEDS ORDERED: TAMSULOSIN 0.4 MG (FLOMAX) CAP PO STA (07:30)
[2022-02-14] MEDS ORDERED: ONDANSETRON 4 MG/2 ML (SDV) Z0FRAN IVP ONE (07:30)
[2022-02-14 07:31] LABS: CALCIUM 9.3 MG/DL (8.5-10.1)
[2022-02-14 07:35] LABS: CREATININE SERUM 0.99 MG/DL (0.60-1.30)
--- NOTE | 2022-02-14 07:35 | ED Abdominal Pain ---
General Chief Complaint: Back Problems Stated Complaint: RT SIDE,POSS KIDNEY STONE Nursing Triage Note: ARRIVED VIA AMB WITH COMPLAINTS OF RIGHT SIDED BACK PAIN. PT HAS A HX OF KIDNEY STONES. STATES HE NEEDS TO HAVE IT OUT BUT DOES NOT HAVE INSURANCE. Source of Information: Patient Exam Limitations: No Limitations History of Present Illness Date Seen by Provider: Feb 14, 2022 Time Seen by Provider: 07:20 Initial Comments Patient is a 32-year-old male who presents to the emergency department today with a chief complaint of right flank pain. Patient states that he was diagnosed with a kidney stone approximately 2 months ago. He was referred to Dr. Sharma in [place] after [facility]. Lassiter states that he was unable to do anything about the kidney stone secondary to the patient's lack of insurance. He states over the past couple of months he is actually been feeling "okay" until the last couple of days when he started developing blood in his urine and increasing right flank pain. Patient states that he was also seen here at some point and told that his kidney stone was too large to pass. He denies any fevers, chills. He is nauseous. He had a bowel m ovement this morning. He states his urine garcia a little, no concern for STI. He has never had a kidney stone prior to this episode in recent months. No daily medications. Previous surgery on his left leg for broken leg. He does smoke cigarettes, he is counseled on cessation. No daily alcohol use no illicit drugs. He did take 800 mg of ibuprofen this morning prior to arrival. He currently rates his pain at a "9". He does have some radiation down into his right testicle. All other review of systems reviewed and negative except as stated Timing/Duration: 1-2 Days Severity/Quality: Severe, Throbbing Location: RUQ, RLQ, Flank (right) Radiation: Groin Activities at Onset: None Associated Symptoms: Nausea/Vomiting Allergies and Home Medications Allergies Coded Allergies: cefpodoxime (Verified Allergy, Unknown, 10/11/14) Told allergic when he was a child. Reaction unknown. codeine (Verified Adverse Reaction, Mild, NAUSEA/VOMITING, 06/21/17) Patient Home Medication List Home Medication List Reviewed: Yes Discontinued Medications Hydrocodone/Acetaminophen (Hydrocodone-Acetamin 5-325 mg) 1 Each Tablet, 1 TAB PO Q4H PRN for PAIN-MODERATE (5-7) Discontinued Reason: No Longer Taking Prescribed by: AUDREY POTTER on 10/05/21 1350 Last Action: Discontinued Ibuprofen (Ibuprofen) 800 Mg Tablet, 800 MG PO Q8H PRN for PAIN Discontinued Reason: No Longer Taking Prescribed by: AUDREY POTTER on 10/05/211348 Last Action: Discontinued Multivits,Ca,Min/Iron/FA/Lycop (Centrum Men's Tablet) 1 Each Tablet, 1 EACH PO DAILY, (Reported) Discontinued Reason: No Longer Taking Entered as Reported by: BERNIE CHUN on 03/04/201117 Last Action: Discontinued Omeprazole Magnesium (Omeprazole Magnesium) 20 Mg Capsule.dr, 20 MG PO DAILY, (Reported) Discontinued Reason: No Longer Taking Entered as Reported by: BERNIE CHUN on 03/04/201117 Last Action: Discontinued Oxycodone HCl/Acetaminophen (Percocet 5-325 mg Tablet) 1 Each Tablet, 1 TAB PO Q4H Discontinued Reason: No Longer Taking Prescribed by: TONIA AHUJA on 03/05/20 1154 Last Action: Discontinued Sulfamethoxazole/Trimethoprim (Bactrim Ds Tablet) 1 Each Tablet, 1 EACH PO DAILY Discontinued Reason: No Longer Taking Prescribed by: AUDREY POTTER on 10/05/211348 Last Action: Discontinued Tamsulosin HCl (Flomax) 0.4 Mg Cap, 0.4 MG PO DAILY Discontinued Reason: No Longer Taking Prescribed by: AUDREY POTTER on 10/05/211348 Last Action: Discontinued Review of Systems Review of Systems Constitutional: see HPI EENTM: No Symptoms Reported Respiratory: No Symptoms Reported Cardiovascular: No Symptoms Reported Gastrointestinal: Abdominal Pain Genitourinary: Burning, Hematuria Musculoskeletal: no symptoms reported Skin: no symptoms reported Psychiatric/Neurological: No Symptoms Reported All Other Systems Reviewed Negative Unless Noted: Yes Past Drgdeht-Uvahfa-Jtiqdm Hx Patient Social History Smoking Status: Current Everyday Smoker Substance use?: No Alcohol Use?: No Immunizations Up To Date Tetanus Booster (TDap): Unknown PED Vaccines UTD: No Seasonal Allergies Seasonal Allergies: No Past Medical History Surgeries: Yes (L-BROKEN LEG URBANO PLACED) Orthopedic Respiratory: No Cardiac: No Neurological: No Reproductive Disorders: No Sexually Transmitted Disease: No HIV/AIDS: No Genitourinary: Yes Kidney Stones Gastrointestinal: Yes Gastroesophageal Reflux, Pancreatitis Musculoskeletal: Yes (RT CLUB FOOT WHEN YOUNGER) Fractures Endocrine: No HEENT: No Cancer: No Did You Recieve Any Treatments: No Psychosocial: Yes ADD/ADHD, Anxiety Integumentary: No Blood Disorders: No Adverse Reaction/Blood Tranf: No Family Medical History Completed stroke Grandmother Coronary thrombosis Grandmother Pancreatitis No Pertinent Family Hx Physical Exam Vital Signs Vital Signs - First Documented 02/14/22 07:00 Temp 36.5 Pulse 67 Resp 16 B/P (MAP) 141/75 (97) Pulse Ox 99 O2 Delivery Room Air Capillary Refill : Less Than 3 Seconds Height/Weight/BMI Height: 5'5.00" Weight: 180lbs. 0.0oz. 81.113662dx; 27.00 BMI Method:Stated General Appearance: WD/WN, no apparent distress HEENT: PERRL/EOMI Respiratory: lungs clear, normal breath sounds, no respiratory distress, no accessory muscle use Cardiovascular: regular rate, rhythm Gastrointestinal: normal bowel sounds, soft, tenderness (mild right flank tenderness) Extremities: normal range of motion, non-tender, normal inspection Back: CVA tenderness (R) Neurologic/Psychiatric: alert, normal mood/affect, oriented x 3 Skin: normal color, warm/dry Progress/Results/Core Measures Results/Orders Lab Results Laboratory Tests Test 02/14/22 07:03 02/14/22 08:05 Range/Units White Blood Count 7.8 4.3-11.0 10^3/uL Red Blood Count 5.36 4.30-5.52 10^6/uL Hemoglobin 16.2 13.3-17.7 g/dL Hematocrit 46 40-54 % Mean Corpuscular Volume 85 80-99 fL Mean Corpuscular Hemoglobin 30 25-34 pg Mean Corpuscular Hemoglobin Concent 35 32-36 g/dL Red Cell Distribution Width 12.5 10.0-14.5 % Platelet Count 233 130-400 10^3/uL Mean Platelet Volume 10.5 9.0-12.2 fL Immature Granulocyte % (Auto) 1 % Neutrophils (%) (Auto) 59 42-75 % Lymphocytes (%) (Auto) 31 12-44 % Monocytes (%) (Auto) 5 0-12 % Eosinophils (%) (Auto) 3 0-10 % Basophils (%) (Auto) 1 0-10 % Neutrophils # (Auto) 4.6 1.8-7.8 10^3/uL Lymphocytes # (Auto) 2.5 1.0-4.0 10^3/uL Monocytes # (Auto) 0.4 0.0-1.0 10^3/uL Eosinophils # (Auto) 0.2 0.0-0.3 10^3/uL Basophils # (Auto) 0.1 0.0-0.1 10^3/uL Immature Granulocyte # (Auto) 0.1 0.0-0.1 10^3/uL Sodium Level 141 135-145 MMOL/L Potassium Level 3.6 3.6-5.0 MMOL/L Chloride Level 105 98-107 MMOL/L Carbon Dioxide Level 23 21-32 MMOL/L Anion Gap 13 5-14 MMOL/L Blood Urea Nitrogen 7 7-18 MG/DL Creatinine 0.99 0.60-1.30 MG/DL Estimat Glomerular Filtration Rate 105 BUN/Creatinine Ratio 7 Glucose Level 177 H 70-105 MG/DL Calcium Level 9.3 8.5-10.1 MG/DL Urine Color YELLOW Urine Clarity CLEAR Urine pH 6.0 5-9 Urine Specific [place] 1.015 L 1.016-1.022 Urine Protein TRACE H NEGATIVE Urine Glucose (UA) NEGATIVE NEGATIVE Urine Ketones NEGATIVE NEGATIVE Urine Nitrite NEGATIVE NEGATIVE Urine Bilirubin NEGATIVE NEGATIVE Urine Urobilinogen 0.2 < = 1.0 MG/DL Urine Leukocyte Esterase NEGATIVE NEGATIVE Urine RBC (Auto) 3+ H NEGATIVE Urine RBC 10-25 H /HPF Urine WBC NONE /HPF Urine Crystals PRESENT H /LPF Urine Amorphous Sediment FEW ENRIQUETA URATES H /LPF Urine Bacteria NEGATIVE /HPF Urine Casts NONE /LPF Urine Mucus SMALL H /LPF Urine Culture Indicated NO My Orders Orders - ESSENCE READ MD Ed Iv/Invasive Line Start (02/14/22 07:20) Cbc With Automated Diff (02/14/22 07:20) Basic Metabolic Panel (02/14/22 07:20) Ua Culture If Indicated (02/14/22 07:20) Ns Iv 1000 Ml (Sodium Chloride 0.9%) (02/14/22 07:30) Ondansetron Injection (Zofran Injectio (02/14/22 07:30) Abdomen/Kub 1view (02/14/22 07:30) Ct Abd/Pelvis Wo(Kidney Stone) (02/14/22 07:30) Morphine Injection (Morphine Injection (02/14/22 07:30) Glycopyrrolate Injection (Robinul Inject (02/14/22 07:30) Tamsulosin Capsule (Flomax Capsule) (02/14/22 07:30) Medications Given in ED Current Medications Medications Dose Ordered Sig/Imer Route Start Time Stop Time Status Last Admin Dose Admin Glycopyrrolate 0.2 mg ONCE ONCE IV 02/14/22 07:30 02/14/22 07:32 DC 02/14/22 08:35 0.2 MG Ondansetron HCl 8 mg ONCE ONCE IVP 02/14/22 07:30 02/14/22 07:31 DC 02/14/22 07:28 8 MG Vital Signs/I&O 02/14/22 07:00 Temp 36.5 Pulse 67 Resp 16 B/P (MAP) 141/75 (97) Pulse Ox 99 O2 Delivery Room Air Blood Pressure Mean: 97 Progress Progress Note : Time: 09:04 Progress Note Patient reassessed after pain medicines and fluids. He is pain-free at this time. It does not appear that the stone has moved too much on the CAT scan. I will refer him over to our urologist here at [facility]. He states he thinks may be the problem was that he did not drink enough water at work on Monday. 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 His hematuria started on Monday. It could be that dehydration played a part of a role in this but also that the stone likely moved a little. He has no evidence of infection. His vital signs are stable. We will send pain nausea medicines and Flomax to his pharmacy. Return precautions provided. He verbalized understanding. All questions are sought and answered. Diagnostic Imaging Diagonstic Imaging: Xray Comments [facility], [place] NAME: CHANDNI BAGLEY MED REC#: [id number] PT STATUS: REG ER : 1990 PHYSICIAN: ESSENCE READ MD ADMIT DATE: 02/14/22/ER Draft Date of Exam:02/14/22 ABDOMEN/KUB 1VIEW EXAM: ABDOMEN/KUB 1VIEW INDICATION: Flank pain. History of kidney stones. COMPARISON: CT abdomen and pelvis without contrast 02/14/2022. FINDINGS: 0.6 cm calcification corresponding to the renal stone in the right renal pelvis near the ureteropelvic junction. Phleboliths in the pelvis. Nonspecific bowel gas pattern. No acute osseous findings. IMPRESSION: 0.6 cm renal stone in the region of the right ureterovesicular junction. Dictated on workstation # [id number] Dict: 02/14/22 0809 Trans: 02/14/22 0811 [facility] [id number] Interpreted by: JENNA WILLS MD Electronically signed by: [email or web address] Imaging: CT Comments [facility], [place] NAME: CHANDNI BAGLEY [facility] REC#: [id number] PT STATUS: REG ER : 1990 PHYSICIAN: ESSENCE READ MD ADMIT DATE: 02/14/22/ER Draft Date of Exam:02/14/22 CT ABD/PELVIS WO(KIDNEY STONE) PROCEDURE: CT urinary tract, rule out kidney stone. TECHNIQUE: Multiple contiguous axial images were obtained through the abdomen and pelvis without the use of intravenous contrast. Auto Exposure Controls were utilized during the CT exam to meet ALARA standards for radiation dose reduction. INDICATION: Flank pain COMPARISON: 10/05/2021 FINDINGS: Visualized lung bases are clear. The unenhanced liver and spleen are unremarkable. The adrenal glands are unremarkable. Punctate stone versus minimal calcifications within the wall of the gallbladder. The gallbladder is otherwise unremarkable. The pancreas is unremarkable. 7 mm calculus within the right ureteropelvic junction resulting in minimal right hydronephrosis. The right ureter is otherwise unremarkable. Punctate nonobstructing left renal calculi. The left kidney and left ureter are otherwise unremarkable. No aneurysmal dilatation of the abdominal aorta. The appendix is unremarkable. The urinary bladder is unremarkable. The colon is decompressed. No bowel obstruction or pneumatosis. No significant adenopathy, free air, or free fluid within the abdomen or pelvis. No acute osseous abnormality. IMPRESSION: 7 mm calculus within the right ureteropelvic junction resulting in minimal right hydronephrosis. Punctate nonobstructing left renal calculi. Dictated on workstation # [id number] Dict: 02/14/22 0801 Trans: 02/14/22 0821 [facility] [id number] Interpreted by: PATRICIA GUTIÉRREZ MD Electronically signed by: Departure Impression Primary Impression: Right ureteral calculus Disposition: 01 HOME, SELF-CARE Condition: Improved Departure-Patient Inst. Decision time for Depature: 09:05 Referrals: [facility],LOCAL PHYSICIAN (PCP) Primary Care Physician JONI DOMINGUEZ MD Patient Instructions: Kidney Stone, Adult ED Add. Discharge Instructions: Drink lots of water to stay well-hydrated. Your urine should be light yellow in color. You can take the ibuprofen 800 mg every 8 hours with food as needed for pain. I have also prescribed you some hydrocodone. Take this every 6 hours as needed for more intense pain. This medication can cause constipation, stool softeners may help. Do not drive and take this medication. Flomax 1 tablet at night until you follow-up with Dr. Dominguez. Nausea medicines every 8 hours as needed. Return to the emergency department for pain that is not relieved by the above medications, fever, vomiting or any other emergent concerning symptoms. Please call Dr. Dominguez's office for a follow-up appointment within the next 2 weeks Scripts Hydrocodone/Acetaminophen (Hydrocodone-Acetamin 5-325 mg) 5 Mg-325 Mg Tablet 1 TAB PO Q6H PRN for PAIN-MODERATE (5-7), #10 TAB Prov: ESSENCE READ MD 02/14/22 Tamsulosin HCl (Flomax) 0.4 Mg Cap 0.4 MG PO HS for 14 Days, #14 CAP Prov: ESSENCE READ MD 02/14/22 Ondansetron (Ondansetron Odt) 4 Mg Tab.rapdis 4 MG PO Q8H PRN for nausea, #15 TAB Prov: ESSENCE READ MD 02/14/22 Copy Copies To 1: JONI DOMINGUEZ MD Copies To 2: MADHU SARAVIA KATHRYN M MD Feb 14, 2022 07:35
--- NOTE | 2022-02-14 08:11 | Diagnostic Imaging Report ---
EXAM: ABDOMEN/KUB 1VIEW INDICATION: Flank pain. History of kidney stones. COMPARISON: CT abdomen and pelvis without contrast 02/14/2022. FINDINGS: 0.6 cm calcification corresponding to the renal stone in the right renal pelvis near the ureteropelvic junction. Phleboliths in the pelvis. Nonspecific bowel gas pattern. No acute osseous findings. IMPRESSION: 0.6 cm renal stone in the region of the right ureterovesicular junction. Dictated by: Dictated on workstation # [id number]
[2022-02-14 08:14] LABS: BILIRUBIN,URINE NEGATIVE (NEGATIVE); CLARITY,URINE CLEAR; COLOR,URINE YELLOW; GLUCOSE, URINE (UA) NEGATIVE (NEGATIVE); KETONES,URINE NEGATIVE (NEGATIVE); LEUKOCYTE ESTERASE ,URINE NEGATIVE (NEGATIVE); NITRITE,URINE NEGATIVE (NEGATIVE); PROTEIN,URINE TRACE (NEGATIVE)
--- NOTE | 2022-02-14 08:22 | Diagnostic Imaging Report ---
PROCEDURE: CT urinary tract, rule out kidney stone. TECHNIQUE: Multiple contiguous axial images were obtained through the abdomen and pelvis without the use of intravenous contrast. Auto Exposure Controls were utilized during the CT exam to meet ALARA standards for radiation dose reduction. INDICATION: Flank pain COMPARISON: 10/05/2021 FINDINGS: Visualized lung bases are clear. The unenhanced liver and spleen are unremarkable. The adrenal glands are unremarkable. Punctate stone versus minimal calcifications within the wall of the gallbladder. The gallbladder is otherwise unremarkable. The pancreas is unremarkable. 7 mm calculus within the right ureteropelvic junction resulting in minimal right hydronephrosis. The right ureter is otherwise unremarkable. Punctate nonobstructing left renal calculi. The left kidney and left ureter are otherwise unremarkable. No aneurysmal dilatation of the abdominal aorta. The appendix is unremarkable. The urinary bladder is unremarkable. The colon is decompressed. No bowel obstruction or pneumatosis. No significant adenopathy, free air, or free fluid within the abdomen or pelvis. No acute osseous abnormality. IMPRESSION: 7 mm calculus within the right ureteropelvic junction resulting in minimal right hydronephrosis. Punctate nonobstructing left renal calculi. Dictated by: Dictated on workstation # [id number]
[2022-02-14 08:49] LABS: AMORPHOUS SEDIMENT,UR FEW AMOR URATES /LPF; BACTERIA,URINE NEGATIVE /HPF
[2022-02-14] MEDS ORDERED: ONDA4TAB11 PO (09:08)
[2022-02-14] MEDS ORDERED: TMSL.4C PO (09:08)
[2022-02-14] MEDS ORDERED: ACHD5005 PO (09:08)
== END 2022-02-14 09:28 | disposition home or self-care (01) ==
LOC: EDUNIT# 06:49 → ER 06:52
DX: N13.2 Hydronephrosis with renal and ureteral calculous obstruction (principal); F17.200 Nicotine dependence, unspecified, uncomplicated; Z87.442 Personal history of urinary calculi; Z28.310 Unvaccinated for COVID-19
CPT/HCPCS: 36415; 74018; 74176; 80048; 81000; 85025

== ENCOUNTER 2022-03-24 13:12 | Emergency (ER) | payer SELFPAY ==
[~2022-03-24] VITALS: Ht 165 cm; Wt 74.8 kg
[~2022-03-24 13:12] MED LIST changes: +ONDA4TAB11 PO
[2022-03-24] MEDS ORDERED: KETOROLAC 30 MG/ML VIAL IVP ONE (13:30)
[2022-03-24] MEDS ORDERED: NS IV 1000 ML 1,000 ML IV ONE (13:30)
--- NOTE | 2022-03-24 14:15 | Diagnostic Imaging Report ---
PROCEDURE: CT urinary tract, rule out kidney stone. TECHNIQUE: Multiple contiguous axial images were obtained through the abdomen and pelvis without the use of intravenous contrast. Auto Exposure Controls were utilized during the CT exam to meet ALARA standards for radiation dose reduction. INDICATION: History of kidney stones. Patient has right-sided pain. Correlation is made with prior CT from 02/14/2022. FINDINGS: Lung bases are clear. Liver and gallbladder are unremarkable. There is no biliary ductal dilatation. Pancreas and spleen are unremarkable. No adrenal mass is detected. Tiny nonobstructing calculus left kidney is noted. No right-sided renal calculi are seen. There is a calculus located at the right UPJ, 6 mm in size and producing moderate hydronephrosis. The remainder of the right ureter is unremarkable. Bladder is unremarkable. Aorta is nonaneurysmal. Bowel loops are normal caliber. There is no obstruction. Appendix is unremarkable. No free fluid or fluid collection is seen. Prostate is unremarkable. The bony structures are nonacute. IMPRESSION: A 6 mm right UPJ calculus producing moderate hydronephrosis. No other significant abnormality is detected. Dictated by: Dictated on workstation # [id number]
--- NOTE | 2022-03-24 14:23 | ED Abdominal Pain ---
General Chief Complaint: Abdominal/GI Problems Stated Complaint: KIDNEY STONES Nursing Triage Note: PT PRESENTS TO ED WITH COMPLAINTS OF R SIDED FLANK PAIN. PT HAS HX OF KIDNEY STONES AND STATES HE WAS SCHEDULED TO GET THIS ONE OUT TOMORROW BUT STATES HIS APPOINTMENT WAS CANCELLED BECAUSE HE IS UNINSURED. Source of Information: Patient Exam Limitations: No Limitations History of Present Illness Date Seen by Provider: Mar 24, 2022 Initial Comments This is a 32-year-old male who presented to the ER via POV with complaints of right-sided flank pain. States that he has been experiencing pain from a kidney stone for the past several weeks. He has been to 3 emergency departments including this hospital, [facility]. States that he was scheduled to have surgical treatment for removal of his kidney stone tomorrow however he w as informed he would need a $2800 down payment prior to proceeding with procedure. He is currently uninsured and is unable to procure payment. He canceled his appointment at this time. States that he is working to obtain insurance but would like to have treatment for pain management. He denies any fever, chills, decreased urination. States that he has taken tramadol and Floma x at home and has had no relief for the past week. Allergies and Home Medications Allergies Coded Allergies: cefpodoxime (Verified Allergy, Unknown, 10/11/14) Told allergic when he was a child. Reaction unknown. codeine (Verified Adverse Reaction, Mild, NAUSEA/VOMITING, 06/21/17) Patient Home Medication List Home Medication List Reviewed: Yes Hydrocodone/Acetaminophen (Hydrocodone-Acetamin 5-325 mg) 5 Mg-325 Mg Tablet, 1 TAB PO Q6H PRN for PAIN-MODERATE (5-7) Prescribed by: ESSENCE READ on 02/14/22907 Ondansetron (Ondansetron Odt) 4 Mg Tab.rapdis, 4 MG PO Q8H PRN for nausea Prescribed by: ESSENCE READ on 02/14/22907 Tamsulosin HCl (Flomax) 0.4 Mg Cap, 0.4 MG PO HS Prescribed by: ESSENCE READ on 02/14/22 09 Review of Systems Review of Systems Constitutional: no symptoms reported EENTM: No Symptoms Reported Respiratory: No Symptoms Reported Cardiovascular: No Symptoms Reported Gastrointestinal: See HPI Genitourinary: See HPI Musculoskeletal: no symptoms reported Skin: no symptoms reported Psychiatric/Neurological: No Symptoms Reported Endocrine: No Symptoms Reported Hematologic/Lymphatic: No Symptoms Reported Past Qdimwzb-Sdduxl-Rozfpz Hx Patient Social History Tobacco Use?: Yes Tobacco type used: Cigarettes Smoking Status: Current Everyday Smoker Substance use?: No Alcohol Use?: No Pt feels they are or have been: No Immunizations Up To Date Tetanus Booster (TDap): Unknown PED Vaccines UTD: No Seasonal Allergies Seasonal Allergies: No Past Medical History Surgery/Hospitalization HX: PMH: KIDNEY STONES, PACREATITIS Surgeries: Yes (L-BROKEN LEG URBANO PLACED) Orthopedic Respiratory: No Cardiac: No Neurological: No Reproductive Disorders: No Sexually Transmitted Disease: No HIV/AIDS: No Genitourinary: Yes Kidney Stones Gastrointestinal: Yes Gastroesophageal Reflux, Pancreatitis Musculoskeletal: Yes (RT CLUB FOOT WHEN YOUNGER) Fractures Endocrine: No HEENT: No Cancer: No Did You Recieve Any Treatments: No Psychosocial: Yes ADD/ADHD, Anxiety Integumentary: No Blood Disorders: No Adverse Reaction/Blood Tranf: No Family Medical History Completed stroke Grandmother Coronary thrombosis Grandmother Pancreatitis No Pertinent Family Hx Physical Exam Vital Signs Vital Signs - First Documented 03/24/22 13:21 Temp 37.0 Pulse 73 Resp 20 B/P (MAP) 150/104 (119) Pulse Ox 97 Capillary Refill : Less Than 3 Seconds Height/Weight/BMI Height: 5'5.00" Weight: 180lbs. 0.0oz. 81.393924ig; 27.00 BMI Method:Stated General Appearance: WD/WN, no apparent distress HEENT: PERRL/EOMI, normal ENT inspection, pharynx normal Neck: full range of motion, normal inspection Respiratory: lungs clear, normal breath sounds, no respiratory distress, no accessory muscle use Cardiovascular: regular rate, rhythm, no murmur Gastrointestinal: normal bowel sounds, non tender, soft Extremities: normal range of motion, normal inspection Back: normal inspection, no vertebral tenderness, CVA tenderness (R) Neurologic/Psychiatric: no motor/sensory deficits, alert, normal mood/affect, oriented x 3 Skin: normal color, warm/dry Progress/Results/Core Measures Results/Orders Lab Results Laboratory Tests Test 03/24/22 13:40 Range/Units White Blood Count 11.8 H 4.3-11.0 10^3/uL Red Blood Count 4.96 4.30-5.52 10^6/uL Hemoglobin 14.9 13.3-17.7 g/dL Hematocrit 42 40-54 % Mean Corpuscular Volume 85 80-99 fL Mean Corpuscular Hemoglobin 30 25-34 pg Mean Corpuscular Hemoglobin Concent 36 32-36 g/dL Red Cell Distribution Width 12.3 10.0-14.5 % Platelet Count 253 130-400 10^3/uL Mean Platelet Volume 10.5 9.0-12.2 fL Immature Granulocyte % (Auto) 1 % Neutrophils (%) (Auto) 68 42-75 % Lymphocytes (%) (Auto) 23 12-44 % Monocytes (%) (Auto) 6 0-12 % Eosinophils (%) (Auto) 2 0-10 % Basophils (%) (Auto) 1 0-10 % Neutrophils # (Auto) 8.1 H 1.8-7.8 10^3/uL Lymphocytes # (Auto) 2.7 1.0-4.0 10^3/uL Monocytes # (Auto) 0.7 0.0-1.0 10^3/uL Eosinophils # (Auto) 0.2 0.0-0.3 10^3/uL Basophils # (Auto) 0.1 0.0-0.1 10^3/uL Immature Granulocyte # (Auto) 0.1 0.0-0.1 10^3/uL Sodium Level 140 135-145 MMOL/L Potassium Level 4.0 3.6-5.0 MMOL/L Chloride Level 104 98-107 MMOL/L Carbon Dioxide Level 26 21-32 MMOL/L Anion Gap 10 5-14 MMOL/L Blood Urea Nitrogen 9 7-18 MG/DL Creatinine 1.10 0.60-1.30 MG/DL Estimat Glomerular Filtration Rate 93 BUN/Creatinine Ratio 8 Glucose Level 122 H 70-105 MG/DL Calcium Level 9.5 8.5-10.1 MG/DL Corrected Calcium 9.3 8.5-10.1 MG/DL Total Bilirubin 0.7 0.1-1.0 MG/DL Aspartate Amino Transf (AST/SGOT) 22 5-34 U/L Alanine Aminotransferase (ALT/SGPT) 25 0-55 U/L Alkaline Phosphatase 66 40-136 U/L Total Protein 6.5 6.4-8.2 GM/DL Albumin 4.2 3.2-4.5 GM/DL My Orders Orders - XAVI PALAFOX APRN Ua Culture If Indicated (03/24/22 13:14) Ct Abd/Pelvis Wo(Kidney Stone) (03/24/22 13:14) Ed Iv/Invasive Line Start (03/24/22 13:14) Ketorolac Injection (Toradol Injection) (03/24/22 13:30) Ns Iv 1000 Ml (Sodium Chloride 0.9%) (03/24/22 13:30) Cbc With Automated Diff (03/24/22 14:24) Comprehensive Metabolic Panel (03/24/22 14:24) Medications Given in ED Current Medications Medications Dose Ordered Sig/Imer Route Start Time Stop Time Status Last Admin Dose Admin Ketorolac Tromethamine 30 mg ONCE ONCE IVP 03/24/22 13:30 03/24/22 13:31 DC 03/24/22 13:47 30 MG Sodium Chloride 1,000 ml @ 999 mls/hr Q1H ONCE IV 03/24/22 13:30 03/24/22 14:30 DC 03/24/22 13:47 999 MLS/HR Vital Signs/I&O 03/24/22 13:21 Temp 37.0 Pulse 73 Resp 20 B/P (MAP) 150/104 (119) Pulse Ox 97 Blood Pressure Mean: 119 Progress Progress Note : Progress Note Patient examined and in no acute distress. Diagnostic Imaging Diagonstic Imaging: CT Comments [facility], [place] NAME: CHANDNI BAGLEY [facility] REC#: [id number] PT STATUS: REG ER : 1990 PHYSICIAN: XAVI PALAFOX APRN ADMIT DATE: 03/24/22/ER Draft Date of Exam:03/24/22 CT ABD/PELVIS WO(KIDNEY STONE) PROCEDURE: CT urinary tract, rule out kidney stone. TECHNIQUE: Multiple contiguous axial images were obtained through the abdomen and pelvis without the use of intravenous contrast. Auto Exposure Controls were utilized during the CT exam to meet ALARA standards for radiation dose reduction. INDICATION: History of kidney stones. Patient has right-sided pain. Correlation is made with prior CT from 02/14/2022. FINDINGS: Lung bases are clear. Liver and gallbladder are unremarkable. There is no biliary ductal dilatation. Pancreas and spleen are unremarkable. No adrenal mass is detected. Tiny nonobstructing calculus left kidney is noted. No right-sided renal calculi are seen. There is a calculus located at the right UPJ, 6 mm in size and producing moderate hydronephrosis. The remainder of the right ureter is unremarkable. Bladder is unremarkable. Aorta is nonaneurysmal. Bowel loops are normal caliber. There is no obstruction. Appendix is unremarkable. No free fluid or fluid collection is seen. Prostate is unremarkable. The bony structures are nonacute. IMPRESSION: A 6 mm right UPJ calculus producing moderate hydronephrosis. No other significant abnormality is detected. Dictated on workstation # [id number] Dict: 03/24/22 1405 Trans: 03/24/22 1415 [id number] Interpreted by: AUGIE MOORE MD Electronically signed by: Reviewed: Reviewed by Me Departure Impression Primary Impression: Kidney stones Disposition: 01 HOME, SELF-CARE Condition: Improved Departure-Patient Inst. Decision time for Depature: 14:53 Referrals: NO,LOCAL PHYSICIAN (PCP/Family) Primary Care Physician Patient Instructions: Kidney Stone, Adult ED Add. Discharge Instructions: Plan: 1. Follow your previous discharge instructions. Do not take Angela-tab together with Tramadol. Do not drive or work while taking pain medication. 2. Use Ketorolac as directed. Do not take with Ibuprofen. 3. Follow up with urology. Return for any new, concerning, or worsening symptom s. All discharge instructions reviewed with patient and/or family. Voiced understanding. Scripts Ketorolac Tromethamine (Ketorolac Tromethamine) 10 Mg Tablet 10 MG PO Q12H PRN for PAIN-BREAKTHROUGH, #10 TAB 0 Refills Prov: XAVI PALAFOX [employer] 03/24/22 Hydrocodone/Acetaminophen (Hydrocodone-Acetamin 5-325 mg) 5 Mg-325 Mg Tablet 1 TAB PO Q6H PRN for PAIN-MODERATE (5-7), #14 TAB 0 Refills Prov: XAVI PALAFOX [employer] 03/24/22 XAVI PALAFOX [employer] Mar 24, 2022 14:23
[2022-03-24 14:28] LABS: BASOPHILS # (AUTO) 0.1 10^3/uL (0.0-0.1); BASOPHILS % (AUTO) 1 % (0-10); EOSINOPHILS # (AUTO) 0.2 10^3/uL (0.0-0.3); EOSINOPHILS % (AUTO) 2 % (0-10); HEMATOCRIT 42 % (40-54); HEMOGLOBIN 14.9 g/dL (13.3-17.7); LYMPHOCYTES # (AUTO) 2.7 10^3/uL (1.0-4.0); LYMPHOCYTES % (AUTO) 23 % (12-44); MEAN CORPUSCULAR HEMOGLOBIN 30 pg (25-34); MEAN CORPUSCULAR HGB CONC 36 g/dL (32-36); MEAN CORPUSCULAR VOLUME 85 fL (80-99); MEAN PLATELET VOLUME 10.5 fL (9.0-12.2); MONOCYTES # (AUTO) 0.7 10^3/uL (0.0-1.0); MONOCYTES % (AUTO) 6 % (0-12); NEUTROPHILS # (AUTO) 8.1 10^3/uL (1.8-7.8); NEUTROPHILS % (AUTO) 68 % (42-75); PLATELET COUNT 253 10^3/uL (130-400); WHITE BLOOD COUNT 11.8 10^3/uL (4.3-11.0)
[2022-03-24 14:37] LABS: ALBUMIN 4.2 GM/DL (3.2-4.5)
[2022-03-24 14:39] LABS: CALCIUM 9.5 MG/DL (8.5-10.1)
[2022-03-24 14:40] LABS: TOTAL PROTEIN 6.5 GM/DL (6.4-8.2)
[2022-03-24 14:42] LABS: BILIRUBIN,TOTAL 0.7 MG/DL (0.1-1.0)
[2022-03-24 14:44] LABS: CREATININE SERUM 1.1 MG/DL (0.60-1.30)
[2022-03-24] MEDS ORDERED: ACHD5005 PO (14:58)
[2022-03-24] MEDS ORDERED: KETO10TA PO (14:58)
[2022-03-24] MEDS ORDERED: HYDROcodone/APAP 5 MG/325 MG (LORTAB) TAB PO ONE (15:00)
[2022-03-24 15:03] VITALS: BP 145/97
[2022-03-24 15:05] LABS: BILIRUBIN,URINE NEGATIVE (NEGATIVE); CLARITY,URINE CLEAR; COLOR,URINE YELLOW; GLUCOSE, URINE (UA) NEGATIVE (NEGATIVE); KETONES,URINE NEGATIVE (NEGATIVE); LEUKOCYTE ESTERASE ,URINE NEGATIVE (NEGATIVE); NITRITE,URINE NEGATIVE (NEGATIVE); PROTEIN,URINE NEGATIVE (NEGATIVE)
[2022-03-24 15:23] LABS: BACTERIA,URINE NEGATIVE /HPF; RBC,URINE 0-2 /HPF
== END 2022-03-24 15:03 | disposition home or self-care (01) ==
LOC: EDUNIT# 13:12 → ER 13:13
DX: N13.2 Hydronephrosis with renal and ureteral calculous obstruction (principal); F17.210 Nicotine dependence, cigarettes, uncomplicated; Z88.6 Allergy status to analgesic agent
CPT/HCPCS: 36415; 74176; 80053; 81000; 85025

== ENCOUNTER 2023-07-09 19:08 | Emergency (ER) | payer SELFPAY ==
[~2023-07-09] VITALS: Ht 165 cm; Wt 74.0 kg
[~2023-07-09 19:08] MED LIST changes: +ALBU8.5H6 IH; +FAMO-356 PO; -FAMO20TA3 PO; +KETO10TA PO; -RT-ALBUINH IH
[2023-07-09 19:21] VITALS: BP 155/99
[2023-07-09] MEDS ORDERED: ONDANSETRON INJECTION 4 MG/2 ML (SDV) IVP ONE (19:30)
[2023-07-09] MEDS ORDERED: KETOROLAC INJ 15 MG/ML VIAL IVP ONE (19:30)
[2023-07-09] MEDS ORDERED: NS IV 1000 ML 1,000 ML IV SCH (19:30)
[2023-07-09 19:37] LABS: BASOPHILS # (AUTO) 0.1 10^3/uL (0.0-0.1); BASOPHILS % (AUTO) 1 % (0-10); EOSINOPHILS # (AUTO) 0.3 10^3/uL (0.0-0.3); EOSINOPHILS % (AUTO) 3 % (0-10); HEMATOCRIT 45 % (40-54); LYMPHOCYTES # (AUTO) 3.6 10^3/uL (1.0-4.0); LYMPHOCYTES % (AUTO) 42 % (12-44); MEAN CORPUSCULAR HEMOGLOBIN 31 pg (25-34); MEAN CORPUSCULAR HGB CONC 36 g/dL (32-36); MEAN CORPUSCULAR VOLUME 86 fL (80-99); MEAN PLATELET VOLUME 10.1 fL (9.0-12.2); MONOCYTES # (AUTO) 0.4 10^3/uL (0.0-1.0); MONOCYTES % (AUTO) 5 % (0-12); NEUTROPHILS # (AUTO) 4.2 10^3/uL (1.8-7.8); NEUTROPHILS % (AUTO) 49 % (42-75); PLATELET COUNT 274 10^3/uL (130-400); WHITE BLOOD COUNT 8.6 10^3/uL (4.3-11.0)
--- NOTE | 2023-07-09 19:44 | ED GU-Male ---
General Chief Complaint: Abdominal/GI Problems Stated Complaint: AB AND BACK PAIN/KIDNEY STONES Nursing Triage Note: patient complaint of rt sided abd/back pain. hx of rt sided kidney stone x2 years. states unable to pass. Source: patient Exam Limitations: no limitations History of Present Illness Date Seen by Provider: Jul 09, 2023 Time Seen by Provider: 19:10 Initial Comments 33-year-old male presents to the ER with complaints of right flank, right abdomen, and right groin pain starting approximately 1 to 2 hours prior to arrival. Patient reports history of sided ureteral stone. Reports he has had this stone for at least 2 years. He was scheduled to have lithotripsy, but was unable to have it done due to being unable to pay for it. He reports nausea, no vomiting. Denies fevers and dysuria. He reports he does have some hydrocodone at home, but states he did not take any tonight. Allergies and Home Medications Allergies Coded Allergies: cefpodoxime (Verified Allergy, Unknown, 10/11/14) Told allergic when he was a child. Reaction unknown. codeine (Verified Adverse Reaction, Mild, NAUSEA/VOMITING, 06/21/17) Patient Home Medication List Home Medication List Reviewed: Yes Hydrocodone/Acetaminophen (Hydrocodone-Acetamin 5-325 mg) 5 Mg-325 Mg Tablet, 1 TAB PO Q6H PRN for PAIN-MODERATE (5-7) Prescribed by: ESSENCE READ on 02/14/22 0908 Hydrocodone/Acetaminophen (Hydrocodone-Acetamin 5-325 mg) 5 Mg-325 Mg Tablet, 1 TAB PO Q6H PRN for PAIN-MODERATE (5-7) Prescribed by: XAVI PALAFOX on 03/24/22 145 Hydrocodone/Acetaminophen (Hydrocodone-Acetamin 5-325 mg) 5 Mg-325 Mg Tablet, 1 TAB PO Q4H PRN for PAIN-MODERATE (5-7) Prescribed by: Nahomi Tirado on 07/09/23 205 Ketorolac Tromethamine (Ketorolac Tromethamine) 10 Mg Tablet, 10 MG PO Q12H PRN for PAIN-BREAKTHROUGH Prescribed by: XAVI PALAFOX on 03/24/22 145 Ketorolac Tromethamine (Ketorolac Tromethamine) 10 Mg Tablet, 10 MG PO Q8H Prescribed by: Nahomi Tirado on 07/09/232053 Ondansetron (Ondansetron Odt) 4 Mg Tab.rapdis, 4 MG PO Q8H PRN for nausea Prescribed by: ESSENCE READ on 02/14/22907 Ondansetron (Ondansetron Odt) 4 Mg Tab.rapdis, 4 MG SL Q4H PRN for NAUSEA/VOMITING Prescribed by: Nahomi Tirado on 07/09/232053 Tamsulosin HCl (Flomax) 0.4 Mg Cap, 0.4 MG PO HS Prescribed by: ESSENCE READ on 02/14/22907 Tamsulosin HCl (Flomax) 0.4 Mg Cap, 0.4 MG PO DAILY Prescribed by: Nahomi Tirado on 07/09/232053 Review of Systems Review of Systems Constitutional: see HPI Past Esauzha-Beevvy-Iljxro Hx Immunizations Up To Date Tetanus Booster (TDap): Unknown PED Vaccines UTD: No Influenza Vaccine Up-to-Date: No; Not Current Seasonal Allergies Seasonal Allergies: No Past Medical History Surgery/Hospitalization HX: PMH: KIDNEY STONES, PACREATITIS Surgeries: Yes (L-BROKEN LEG URBANO PLACED) Orthopedic Respiratory: No Cardiac: No Neurological: No Reproductive Disorders: No Sexually Transmitted Disease: No HIV/AIDS: No Genitourinary: Yes Kidney Stones Gastrointestinal: Yes Gastroesophageal Reflux, Pancreatitis Musculoskeletal: Yes (RT CLUB FOOT WHEN YOUNGER) Fractures Endocrine: No HEENT: No Cancer: No Did You Recieve Any Treatments: No Psychosocial: Yes ADD/ADHD, Anxiety Integumentary: No Blood Disorders: No Adverse Reaction/Blood Tranf: No Family Medical History Completed stroke Grandmother Coronary thrombosis Grandmother Pancreatitis No Pertinent Family Hx Physical Exam Vital Signs Vital Signs - First Documented 07/09/23 19:21 Temp 36.4 Pulse 84 Resp 20 B/P (MAP) 155/99 (117) Pulse Ox 99 O2 Delivery Room Air Capillary Refill : Less Than 3 Seconds Height, Weight, BMI Height: 5'5.00" Weight: 180lbs. 0.0oz. 81.556684cz; 27.00 BMI Method:Stated General Appearance: WD/WN, mild distress Neck: supple, normal inspection Cardiovascular: regular rate, rhythm Respiratory: lungs clear, normal breath sounds, no respiratory distress, no ac cessory muscle use Gastrointestinal: normal bowel sounds, soft; No guarding, No rebound; tenderness (Mild right upper and right lower) Back: CVA tenderness (R); No CVA tenderness (L) Extremities: normal range of motion, normal inspection Neurologic/Psychiatric: alert, normal mood/affect Skin: normal color, warm/dry Progress/Results/Core Measures Suspected Sepsis SIRS Temperature: Pulse: 84 Respiratory Rate: 20 Laboratory Tests 07/09/23 19:28: White Blood Count 8.6 Blood Pressure 155 /99 Mean: 117 Laboratory Tests 07/09/23 19:28: Creatinine 0.94, Platelet Count 274, Total Bilirubin 0.3 Results/Orders Lab Results Laboratory Tests Test 07/09/23 19:28 Range/Units White Blood Count 8.6 4.3-11.0 10^3/uL Red Blood Count 5.22 4.30-5.52 10^6/uL Hemoglobin 16.0 13.3-17.7 g/dL Hematocrit 45 40-54 % Mean Corpuscular Volume 86 80-99 fL Mean Corpuscular Hemoglobin 31 25-34 pg Mean Corpuscular Hemoglobin Concent 36 32-36 g/dL Red Cell Distribution Width 12.2 10.0-14.5 % Platelet Count 274 130-400 10^3/uL Mean Platelet Volume 10.1 9.0-12.2 fL Immature Granulocyte % (Auto) 0 % Neutrophils (%) (Auto) 49 42-75 % Lymphocytes (%) (Auto) 42 12-44 % Monocytes (%) (Auto) 5 0-12 % Eosinophils (%) (Auto) 3 0-10 % Basophils (%) (Auto) 1 0-10 % Neutrophils # (Auto) 4.2 1.8-7.8 10^3/uL Lymphocytes # (Auto) 3.6 1.0-4.0 10^3/uL Monocytes # (Auto) 0.4 0.0-1.0 10^3/uL Eosinophils # (Auto) 0.3 0.0-0.3 10^3/uL Basophils # (Auto) 0.1 0.0-0.1 10^3/uL Immature Granulocyte # (Auto) 0.0 0.0-0.1 10^3/uL Urine Color YELLOW Urine Clarity CLEAR Urine pH 6.0 5-9 Urine Specific [place] <=1.005 1.016-1.022 Urine Protein NEGATIVE NEGATIVE Urine Glucose (UA) NEGATIVE NEGATIVE Urine Ketones NEGATIVE NEGATIVE Urine Nitrite NEGATIVE NEGATIVE Urine Bilirubin NEGATIVE NEGATIVE Urine Urobilinogen 0.2 < = 1.0 MG/DL Urine Leukocyte Esterase NEGATIVE NEGATIVE Urine RBC (Auto) TRACE H NEGATIVE Urine RBC NONE /HPF Urine WBC NONE /HPF Urine Squamous Epithelial Cells RARE /HPF Urine Crystals NONE /LPF Urine Bacteria TRACE /HPF Urine Casts NONE /LPF Urine Mucus NEGATIVE /LPF Urine Culture Indicated NO Sodium Level 138 135-145 MMOL/L Potassium Level 3.2 L 3.6-5.0 MMOL/L Chloride Level 104 98-107 MMOL/L Carbon Dioxide Level 22 21-32 MMOL/L Anion Gap 12 5-14 MMOL/L Blood Urea Nitrogen 7 7-18 MG/DL Creatinine 0.94 0.60-1.30 MG/DL Estimat Glomerular Filtration Rate 111 BUN/Creatinine Ratio 7 Glucose Level 157 H 70-105 MG/DL Calcium Level 9.4 8.5-10.1 MG/DL Corrected Calcium 9.0 8.5-10.1 MG/DL Total Bilirubin 0.3 0.1-1.0 MG/DL Aspartate Amino Transf (AST/SGOT) 20 5-34 U/L Alanine Aminotransferase (ALT/SGPT) 31 0-55 U/L Alkaline Phosphatase 77 40-136 U/L C-Reactive Protein High Sensitivity 0.21 0.00-0.50 MG/DL Total Protein 7.1 6.4-8.2 GM/DL Albumin 4.5 3.2-4.5 GM/DL Lipase 29 8-78 U/L My Orders Orders - NAHOMI CORTES [employer] Ua Culture If Indicated (07/09/23 19:10) Comprehensive Metabolic Panel (07/09/23 19:30) Lipase (07/09/23 19:30) Ed Iv/Invasive Line Start (07/09/23:30) Cbc And Automated Diff (07/09/23:) Ondansetron Injection (Ondansetron Inj (07/09/23 19:30) Ketorolac Injection (Ketorolac Injection (07/09/23 19:30) Ns Iv 1000 Ml (Ns Iv 1000 Ml) (07/09/23 19:30) Hs C Reactive Protein (07/09/23 19:28) Ct Abd/Pelvis Wo(Kidney Stone) (07/09/23 19:58) Morphine Injection (Morphine Injection (07/09/23 20:37) Potassium Chloride (Tablet) (Potassium C (07/09/23 21:00) Tamsulosin Capsule (Flomax Capsule) (07/09/23 21:00) Medications Given in ED Current Medications Medications Dose Ordered Sig/Imer Route Start Time Stop Time Status Last Admin Dose Admin Ketorolac Tromethamine 15 mg ONCE ONCE IVP 07/09/23 19:30 07/09/23 19:33 DC 07/09/23 19:43 15 MG Ondansetron HCl 4 mg ONCE ONCE IVP 07/09/23 19:30 07/09/23 19:33 DC 07/09/23 19:43 4 MG Vital Signs/I&O 07/09/23 19:21 Temp 36.4 Pulse 84 Resp 20 B/P (MAP) 155/99 (117) Pulse Ox 99 O2 Delivery Room Air Capillary Refill : Less Than 3 Seconds Blood Pressure Mean: 117 Progress Note : Progress Note Patient seen and evaluated, resting in bed, mild distress. Based on exam and symptoms, workup initiated including CBC, CMP, lipase, CRP, UA. IV fluids, Zofran, Toradol ordered. CT abdomen pelvis kidney stone rule out ordered. [address] reviewed. CBC grossly normal. CMP shows slightly decreased potassium 3.2, glucose 157. CRP normal. Lipase normal. Urinalysis shows trace RBCs, negative for infection. CT shows mild right hydronephrosis secondary to a 6 x 8 mm stone in the region of the right UPJ. Also a tiny stone within the gallbladder. Results discussed with patient. Patient reports that he did eat just prior to arrival and had a little pop today, this may explain his elevated blood sugar. Patient reevaluated. Reports that he still has significant pain. Morphine ordered. 2106 patient reevaluated. Reports significant improvement in pain. Will proceed with discharge at this time. Will send patient home with take-home pack of [place]. Patient is stable for discharge. Discharge instructions and return precautions provided. Diagnostic Imaging Diagonstic Imaging: CT Plain Films/CT/US/NM/MRI: abdomen, pelvis [facility] [place] [place] NAME: CHANDNI BAGLEY [facility] REC#: [id number] PT STATUS: REG ER : 1990 PHYSICIAN: NAHOMI CORTES APRN ADMIT DATE: 07/09/23/ER Draft Date of Exam:07/09/23 CT ABD/PELVIS WO(KIDNEY STONE) PROCEDURE: CT urinary tract, rule out kidney stone. TECHNIQUE: Multiple contiguous axial images were obtained through the abdomen and pelvis without the use of intravenous contrast. Auto Exposure Controls were utilized during the CT exam to meet ALARA standards for radiation dose reduction. INDICATION: Flank pain. COMPARISON: Prior examination from 03/24/2022. FINDINGS: The heart size is normal. The lung bases are clear. The liver is normal in size without focal lesion. There appears to be a small stone in the gallbladder. There is no biliary ductal dilatation. The spleen is normal. The distal esophagus and stomach are normal. The pancreas and adrenal glands are unremarkable. There is right hydronephrosis secondary to a 6 x 8 mm stone. Left kidney is normal. Aorta is nonaneurysmal. Bowel gas pattern is nonspecific. There is no free air. There is no ascites. No focal inflammatory changes. Appendix is normal. The bladder is normal. There is no pelvic mass, adenopathy or free fluid. The osseous structures are unremarkable. IMPRESSION: 1. Mild right hydronephrosis secondary to a 6 x 8 mm stone in the region the right UPJ. 2. Findings suspect for a tiny stone in the gallbladder. 3. Otherwise, unremarkable noncontrast CT abdomen and pelvis. Dictated on workstation # [id number] Dict: 07/09/232018 Trans: 07/09/232024 [facility] [id number] Interpreted by: MARILUZ CASTELLANO MD Electronically signed by: Departure Impression Primary Impression: Right ureteral calculus Disposition: 01 HOME, SELF-CARE Condition: Stable Departure-Patient Inst. Decision time for Depature: 21:07 Referrals: Dwight EWING MD NO,LOCAL PHYSICIAN (PCP) Primary Care Physician Patient Instructions: Kidney Stones (DC) Add. Discharge Instructions: Follow-up with Dr. Ewing. You will likely need a procedure to remove or break up the stone. Take hydrocodone as needed for pain. It may make you sleepy. Do not take while driving or operating heavy machinery. It can also cause constipation. Take ketorolac with food as needed for pain. Take Zofran as needed for nausea and vomiting. It may cause constipation, so only take when needed. Take Flomax once a day 30 minutes after your evening meal. Follow-up with a primary care provider regarding your elevated blood sugar. Return for severe pain, fever, inability to urinate, or any other new, concerning, or worsening symptoms. All discharge instructions reviewed with patient and/or family. Voiced understanding. Scripts Tamsulosin HCl (Flomax) 0.4 Mg Cap 0.4 MG PO DAILY for 14 Days, #14 CAP 0 Refills Prov: NAHOMI CORTES APRN 07/09/23 Ondansetron (Ondansetron Odt) 4 Mg Tab.rapdis 4 MG SL Q4H PRN for NAUSEA/VOMITING, #15 TAB 0 Refills Prov: NAHOMI CORTES APRN 07/09/23 Ketorolac Tromethamine (Ketorolac Tromethamine) 10 Mg Tablet 10 MG PO Q8H, #20 TAB Prov: NAHOMI CORTES APRN 07/09/23 Hydrocodone/Acetaminophen (Hydrocodone-Acetamin 5-325 mg) 5 Mg-325 Mg Tablet 1 TAB PO Q4H PRN for PAIN-MODERATE (5-7), #15 TAB 0 Refills Prov: NAHOMI CORTES APRN 07/09/23 NAHOMI CORTES APRN Jul 09, 2023 19:44
[2023-07-09 19:49] LABS: ALBUMIN 4.5 GM/DL (3.2-4.5)
[2023-07-09 19:50] LABS: POTASSIUM 3.2 MMOL/L (3.6-5.0)
[2023-07-09 19:51] LABS: CALCIUM 9.4 MG/DL (8.5-10.1)
[2023-07-09 19:52] LABS: TOTAL PROTEIN 7.1 GM/DL (6.4-8.2)
[2023-07-09 19:54] LABS: BILIRUBIN,TOTAL 0.3 MG/DL (0.1-1.0)
[2023-07-09 19:56] LABS: CREATININE SERUM 0.94 MG/DL (0.60-1.30)
[2023-07-09 20:13] LABS: BACTERIA,URINE TRACE /HPF; BILIRUBIN,URINE NEGATIVE (NEGATIVE); CLARITY,URINE CLEAR; COLOR,URINE YELLOW; GLUCOSE, URINE (UA) NEGATIVE (NEGATIVE); KETONES,URINE NEGATIVE (NEGATIVE); LEUKOCYTE ESTERASE ,URINE NEGATIVE (NEGATIVE); NITRITE,URINE NEGATIVE (NEGATIVE); PROTEIN,URINE NEGATIVE (NEGATIVE); SQUAMOUS EPITHELIAL CELL,UR RARE /HPF
--- NOTE | 2023-07-09 20:26 | Diagnostic Imaging Report ---
PROCEDURE: CT urinary tract, rule out kidney stone. TECHNIQUE: Multiple contiguous axial images were obtained through the abdomen and pelvis without the use of intravenous contrast. Auto Exposure Controls were utilized during the CT exam to meet ALARA standards for radiation dose reduction. INDICATION: Flank pain. COMPARISON: Prior examination from 03/24/2022. FINDINGS: The heart size is normal. The lung bases are clear. The liver is normal in size without focal lesion. There appears to be a small stone in the gallbladder. There is no biliary ductal dilatation. The spleen is normal. The distal esophagus and stomach are normal. The pancreas and adrenal glands are unremarkable. There is right hydronephrosis secondary to a 6 x 8 mm stone. Left kidney is normal. Aorta is nonaneurysmal. Bowel gas pattern is nonspecific. There is no free air. There is no ascites. No focal inflammatory changes. Appendix is normal. The bladder is normal. There is no pelvic mass, adenopathy or free fluid. The osseous structures are unremarkable. IMPRESSION: 1. Mild right hydronephrosis secondary to a 6 x 8 mm stone in the region the right UPJ. 2. Findings suspect for a tiny stone in the gallbladder. 3. Otherwise, unremarkable noncontrast CT abdomen and pelvis. Dictated by: Dictated on workstation # [id number]
[2023-07-09] MEDS ORDERED: morphine INJ 10 MG/ML 1ML (SYR OR VIAL) IVP STA (20:37)
[2023-07-09] MEDS ORDERED: ACHD5005 PO (20:54)
[2023-07-09] MEDS ORDERED: ONDA4TAB11 SL (20:54)
[2023-07-09] MEDS ORDERED: KETO10TA PO (20:54)
[2023-07-09] MEDS ORDERED: TMSL.4C PO (20:54)
[2023-07-09] MEDS ORDERED: TAMSULOSIN 0.4 MG (FLOMAX) CAP PO ONE (21:00)
[2023-07-09] MEDS ORDERED: POTASSIUM CHLORIDE 20 MEQ TABLET PO ONE (21:00)
== END 2023-07-09 21:34 | disposition home or self-care (01) ==
LOC: EDUNIT# 19:08 → ER 19:10
DX: N13.2 Hydronephrosis with renal and ureteral calculous obstruction (principal); K80.20 Calculus of gallbladder without cholecystitis without obstruction; Z88.5 Allergy status to narcotic agent
CPT/HCPCS: 36415; 74176; 80053; 81000; 83690; 85025; 86141